=== PATIENT | female | born 1955 | race Caucasian/White ===

== ENCOUNTER 2019-04-15 14:21 | Inpatient (IN) | payer BC, SELFPAY ==
[2019-04-15] VITALS (7 sets, daily range): BP systolic 146–175; BP diastolic 78–94; PULSE 84–115; RESP 18–25; TEMP 36.4–38.7; O2SAT 97–99; BMI 35.0
--- NOTE | ~2019-04-15 | CT_ITS ---
EXAMINATION: CT abdomen pelvis w con DATE: 04/15/2019 15:49 INDICATION: Left lower quadrant abdominal pain, fever TECHNIQUE: Computed tomography (CT) of the abdomen and pelvis was performed with 100 cc Omnipaque 350 intravenous contrast. Automated exposure control and iterative reconstruction technique were employe d. Exam dose: 979.61 mGy-cm total exam DLP. COMPARISON: 07/23/2003 CT abdomen FINDINGS: The lung bases are clear. Normal heart size. Coronary artery calcification. No pericardial or pleural effusion. A stable hypoenhancing approximately 14 mm lower right hepatic lobe lesion is noted, stable since 07/08, consistent with benign process no other hepatic space-occupying mass lesion is evident. The g allbladder appears normal. No bile duct or pancreatic duct dilatation. Normal splenic size. There is a pancreatic soft tissue stranding along the body and particularly tail the pancreas, and so me thickening of the left anterior pararenal fascia, suggesting uncomplicated acute pancreatitis. No pancreatic calcification. No pancreatic mass lesion is evident. The adrenal glands are unremarkable. No renal mass lesion or urinary tract calculus or hydroureteronephrosis. The urinary bladder is unrem arkable. The uterus and adnexal areas are unremarkable. There is atherosclerotic calcification of the abdominal aorta but no aneurysm. No intraperitoneal or retroperitoneal or pelvic mass lesion or adenopathy or ascites is detected. Diverticulosis of the sigmoid colon; no CT evidence of diverticulitis. No bowel obstruction or intrap eritoneal free air. Normal appendix. Small fat-containing umbilical hernia. Left hip replacement. There is degenerative disc disease throughout the lumbar and lumbosacral area. No suspicious osteolyt ic or osteoblastic lesions are noted. IMPRESSION: Acute uncomplicated pancreatitis Stable 14 mm lower right hepatic lobe lesion, unchanged since 07/23/2003, consistent with benign proce ss Diverticulosis of the sigmoid colon; no CT evidence of diverticulitis Reviewed, dictated and finalized at [facility]. Reviewed, dictated and finalized at [facility]. ERY CLERK STOCKING IMPRESSION: Acute uncomplicated pancreatitis Stable 14 mm lower right hepatic lobe lesion, unchanged since 07/23/2003, consis tent with benign process Diverticulosis of the sigmoid colon; no CT evidence of diverticulitis
[2019-04-15 14:44] LABS: Basophils Absolute Auto 0.1 K/mm3 (0.0-0.1); Basophils Percent Auto 0.3 % (0.2-1.2); Eosinophils Percent Auto 0.2 % (0-4.4); Hematocrit 43.4 % (37.0-47.0); Hemoglobin 14.6 g/dL (12.0-15.0); Immature Granulocyte Absolute 0.04 K/mm3 (0.00-0.031); Immature Granulocyte Percent A 0.3 % (0-0.5); Lymphocytes Absolute Auto 1.59 K/mm3 (0.9-3.2); Lymphocytes Percent Auto 10.8 % (18.3-44.2); Mean Corpuscular HGB Conc 33.6 g/dl (32-36); Mean Corpuscular Hemoglobin 29.6 pg (26-34); Mean Platelet Volume 10.6 fl (7.4-10.4); Monocytes Absolute Auto 1.3 K/mm3 (0.1-0.6); Monocytes Percent Auto 8.6 % (2.6-8.5); Neutrophils Absolute Auto 11.8 K/mm3 (1.3-6.7); Neutrophils Percent Auto 79.8 % (45.5-73.1); Platelet Count Result 275 k/mm3 (150-375); Red Blood Count 4.93 M/mm3 (4.2-5.4); Red Cell Distribution Width 12.8 % (11.5-14.5); White Blood Count 14.8 K/mm3 (4.5-10.0)
[2019-04-15 14:56] LABS: Alanine Aminotransferase 15 U/L (4-35); Albumin Level 4.5 g/dL (3.5-5.1); Alkaline Phosphatase 85 U/L (38-126); Aspartate Amino Transferase 20 U/L (14-36); Bilirubin,Total 0.6 mg/dL (0.2-1.3); Blood Urea Nitrogen 13 mg/dL (7-17); Calcium 9.6 mg/dL (8.4-10.2); Carbon Dioxide 23 mmol/L (22-30); Chloride 100 mmol/L (98-107); Estimated CRCL calculation 50 ml/min; Estimated Glomerular Filt Rate 56; Glucose 110 mg/dL (65-105); Lipase 78 U/L (23-300); Potassium 4.1 mmol/L (3.4-5.0); Sodium 138 mmol/L (137-145)
[2019-04-15 15:00] LABS: Add Urine Microscopic? YES; Appearance Urine Clear (Clear); Bacteria Urine Trace /hpf; Bilirubin Urine Negative (Negative); Blood Urine 1+ (Negative); Color Urine Yellow (Yellow); Glucose Urine UA Negative (Negative); Ketones Urine Trace mg/dL (Negative); Leukocyte Esterase Ur 2+ LEU/UL (Negative); Mucus Urine Few /lpf; Nitrate Urine Negative (Negative); Protein Urine Negative (Negative); Specific Grav Ur 1.017 (1.001-1.035); Squamous Epithelial Cell Urine Occasional /hpf (Few); Urobilinogen Urine Negative mg/dL (<2.0); WBC Urine 16-20 /hpf
--- NOTE | 2019-04-15 15:14 | ED.ABDPAIN ---
HPI - Abdominal Pain General Chief Complaint: Abdominal Pain Stated Complaint: abd pain Time Seen by Provider: 04/15/19 15:06 Source: patient Mode of arrival: ambulatory Limitations: no limitations History of Present Illness HPI narrative: Pt is a 63 y/o female who presents to the ED with c/o sharp, LLQ ABD pain that started at 5AM this morning. Pt states that she tried to soak in a hot bath and it temporarily alleviated her pain. She notes that she had similar pain a week ago but not as severe. Her pain then last about 24-38 hours. Pt denies any aggravating factors and she has not taken any medicine. She reports nausea and back pain, but denies vomiting, diarrhea, constipation, dysuria, frequency, fever, chills, or sweats. Pt has a H/o pancreatitis, but her pain today is not similar to her pancreatitis pain. MD elicited complaint: abdominal pain Onset (ago): hour(s) (10) Location: LLQ Quality: sharp Exacerbating factors: nothing Relieving factors: other (hot bath) Associated symptoms: nausea and other (back pain) Related Data Allergies Allergy/AdvReac Type Severity Reaction Status Date / Time No Known Allergies Allergy Mild Verified 05/14/03 07:25 Review of Systems Review of Systems: All systems reviewed & are unremarkable except as noted in HPI and below Constitutional: Constitutional: Denies chills, Denies fever(s) and Denies other (sweats) Gastrointestinal: Gastrointestinal: Reports abdominal pain, Denies constipation, Denies diarrhea, Reports nausea and Denies vomiting Genitourinary: Genitourinary: Denies nocturia and Denies dysuria Musculoskeletal: Musculoskeletal: Reports back pain PMFSH Past Medical History Medical History (Updated 04/15/19 @ 17:26 by Senia Armstrong MD) HTN (hypertension) Pancreatitis Peripheral neuropathy Surgical History Surgical History (Updated 04/15/19 @ 15:50 by Luis Amato) History of left hip replacement Hx of tonsillectomy Social History Social History (Updated 04/15/19 @ 15:51 by Luis Amato) Smoking status: Former smoker Alcohol intake: never Gender identity (if verbalized by the patient): Female Exam Const: General: cooperative, no acute distress and alert Nutritional Appearance: well nourished Orientation/consciousness: patient oriented x3 Limitations: no limitations HENMT: Mouth: Yes lip normal and Yes moist mucous membranes Resp: Effort & Inspection: normal respiratory effort Auscultation: clear to auscultation bilaterally Cardio: Rate: tachycardic (borderline) Rhythm: regular rhythm GI: GI Palp: Yes Soft to palpation, Yes Tenderness to palpation present (GI) (LLQ), No Guarding due to palpation present (GI) and No Rebound tenderness present Auscultation: normal bowel sounds Back/Spine/Pelvis: Back: no CVA tenderness Skin: General skin exam: normal color Neuro: General: patient oriented x3 Cognition (Neuro): normal cognition Speech: normal speech Extrem: General: normal to inspection, full ROM and no clubbing, cyanosis or edema Psych: Mental Status: mental status grossly normal Affect: normal affect Attitude: cooperative Course Course Emergency Course: Patient presents with left lateral abdominal/flank pain, fever, and nausea. Patient with findings consistent with urinary tract infection on urinalysis. Patient with Sirs criteria qualifying for sepsis. No evidence of septic shock or organ dysfunction. CT scan does not show any evidence of urinary obstruction or diverticular disease. She does have evidence of pancreatitis on CT, though lipase is not elevated and her pain is not located in the epigastric area. Will keep patient n.p.o. and on IV fluids given pancreatitis was noted on CT scan, but suspect patient's symptomatology is likely due to UTI. Consultations Consultation #1: Discussed case with TERRELL Craft for the hospitalist. Accepted admission. Date: 04/15/19 Time: 16:45 Vital Signs Vital signs: Vital Signs T
[2019-04-15] MEDS: LACTATED RINGERS 1,000 ML 999 ML IV CONT (15:30)
[2019-04-15] MEDS: ONDANSETRON INJ 4 MG/2 ML VIAL IV PUSH (15:31)
[2019-04-15 15:52] LABS: Lactic Acid Reflex 0.9 mmol/L (0.7-2.1)
--- NOTE | 2019-04-15 16:46 | PC.NURSE ---
Pt ambulated to the bathroom, steady gait.
--- NOTE | 2019-04-15 17:00 | PM.IMHP ---
H&P: HPI History of Present Illness Chief complaint: Abdominal pain. Narrative: Ree Harris is a 63 year old female With history of pancreatitis, peptic ulcers, and hypertension who presented to the emergency department earlier this afternoon for evaluation of abdominal pain.She woke at 0500 hrs. to use the restroom, and notes passing a small but otherwise unremarkable stool. Shortly thereafter, she developed a sudden onset of God awful sharp left upper quadrant pain radiating somewhat through to the backassociated with severe nausea. She lay in a hot tub, which seemed to help for only a short period of time. She gives no significant aggravating factors. Her pain is similar to when she has had pancreatitis previously. She denies fever, chills, or sweats but was noted to have a temperature of 101.6 degrees on arrival to the emergency department. She denies diarrhea and constipation. No vomiting. She has not had issues with GERD or indigestion. She denies alcohol use. She has not had any recent change in medication. No dysuria, hematuria, urgency, or hesitancy. Review of Systems Review of Systems: Narrative: 12 systems were reviewed with pertinent positives and negatives as per HPI. She denies headache and neck ache. No cold or flu symptoms. No chest pain or shortness of breath. Except as documented, all other systems were reviewed and are negative. [facility] Past Medical History Medical History (Updated 04/15/19 @ 18:37 by Yasmin Maynard PA-C) Abnormal endoscopy of upper gastrointestinal tract EGD [place] [address] Macdonald showed duodenitis, duodenal erosions, and peptic ulcer disease. Chronic back pain Hypertension Osteoarthritis Pancreatitis Peripheral neuropathy Surgical History Surgical History (Updated 04/15/19 @ 18:34 by Yasmin Maynard PA-C) History of left hip replacement Status post tonsillectomy Family History Family History (Updated 04/15/19 @ 18:35 by Yasmin Maynard PA-C) Mother Renal cell carcinoma Social History Social History (Updated 04/15/19 @ 18:35 by Yasmin Maynard PA-C) Social History: The patient is and lives with her in [place]. She designates her , Kermit, as her surrogate decision-maker and she wishes to be a full code. She smoked 1 pack of cigarettes per day for 20+ years and quit in 2003. No alcohol or drug abuse. 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 Spiritual care concerns: No Agree to blood products: Yes Meds Home Medications and Allergies Allergies Allergy/AdvReac Type Severity Reaction Status Date / Time No Known Allergies Allergy Mild Verified 05/14/03 07:25 Vital Signs Vital Signs - 24 hr 04/15/19 14:25 04/15/19 15:14 04/15/19 15:33 Temperature 101.6 F H Pulse Rate 115 H 106 H 98 Respiratory Rate 24 H 18 25 H Blood Pressure 146/78 H 158/94 H 148/85 H Pulse Oximetry 99 98 98 04/15/19 16:00 04/15/19 16:53 04/15/19 18:22 Temperature 99.1 F 99.1 F 97.6 F Pulse Rate 85 87 Respiratory Rate 19 20 Blood Pressure 157/82 H 168/85 H Pulse Oximetry 98 97 Exam Narrative: Exam Narrative: General: Well-developed, well-nourished female supine in bed in moderate pain. HEENT: Normocephalic, atraumatic. PERRL, EOMI. Sclerae anicteric. Oral mucosa tacky. Oropharynx clear. Neck: Supple. Respiratory: Lungs are clear to auscultation bilaterally. Cardiovascular: Regular rate and rhythm with S1-S2. Gastrointestinal: Abdomen is soft and nondistended with positive bowel sounds. She is tender to palpation in the left upper quadrant. No voluntary guarding or rebound tenderness. Skin: Warm and dry. No rash or lesions on limited exam. Extremities: No cyanosis, clubbing, or edema. Radial and pedal pulses intact. Neurological: Alert. Cranial nerves 2-12 are grossly intact. No gross focal deficits to casual conversation. Psychiatric: Pleasant and cooperative with normal mood and affect. Judgment and insight
--- NOTE | 2019-04-15 18:15 | ADMGEN ---
This patient, Ree Harris, was admitted to 2 Medical Room 247-. Patient/family oriented to hospital policies and general routines including ID bracelet, bed and alarms, visiting hours, pain management, procedures, bathroom and other care routines, personal items, smoking policy, room service/diet, and visiting hours. Valuables list has been completed. Information on how to activate the Rapid Response Team has been discussed. Patient/Family are encouraged to report perceived risks to care and to ask questions if they do not understand what they are told or what they should do.
[2019-04-15] MEDS: MORPHINE SULFATE 2 MG/ML INJ IV PUSH ×2 (18:24→23:26)
[2019-04-15] MEDS: LACTATED RINGERS 1,000 ML 150 ML IV CONT (18:34)
--- NOTE | 2019-04-15 19:19 | PC.NURSE ---
On 04/15/19, the student, Maral Morelos, provided care and completed [facility] documentation on this patient. I have reviewed the student's documentation and agree with the findings.
[2019-04-15] MEDS: GABAPENTIN 300 MG CAPSULE PO (20:40)
[2019-04-15] MEDS: BACLOFEN 10 MG TABLET PO (20:42)
[2019-04-16] MEDS: LACTATED RINGERS 1,000 ML 150 ML IV CONT ×2 (01:58→09:01)
[2019-04-16] MEDS: MORPHINE SULFATE 2 MG/ML INJ IV PUSH ×2 (04:42→14:20)
[2019-04-16 05:37] LABS: Basophils Absolute Auto 0.1 K/mm3 (0.0-0.1); Basophils Percent Auto 0.4 % (0.2-1.2); Eosinophils Absolute Auto 0.1 K/mm3 (0-0.3); Eosinophils Percent Auto 1.1 % (0-4.4); Hematocrit 38.2 % (37.0-47.0); Hemoglobin 12.4 g/dL (12.0-15.0); Immature Granulocyte Absolute 0.05 K/mm3 (0.00-0.031); Immature Granulocyte Percent A 0.4 % (0-0.5); Lymphocytes Absolute Auto 1.71 K/mm3 (0.9-3.2); Lymphocytes Percent Auto 14.9 % (18.3-44.2); Mean Corpuscular HGB Conc 32.5 g/dl (32-36); Mean Corpuscular Hemoglobin 29.1 pg (26-34); Mean Corpuscular Volume 89.7 fl (80-100); Monocytes Absolute Auto 1.2 K/mm3 (0.1-0.6); Monocytes Percent Auto 10.3 % (2.6-8.5); Neutrophils Absolute Auto 8.3 K/mm3 (1.3-6.7); Neutrophils Percent Auto 72.9 % (45.5-73.1); Platelet Count Result 212 k/mm3 (150-375); Red Blood Count 4.26 M/mm3 (4.2-5.4); White Blood Count 11.5 K/mm3 (4.5-10.0)
[2019-04-16 05:47] LABS: Alanine Aminotransferase 12 U/L (4-35); Albumin Level 3.5 g/dL (3.5-5.1); Alkaline Phosphatase 63 U/L (38-126); Aspartate Amino Transferase 16 U/L (14-36); Bilirubin,Total 0.5 mg/dL (0.2-1.3); Blood Urea Nitrogen 11 mg/dL (7-17); Calcium 8.6 mg/dL (8.4-10.2); Carbon Dioxide 23 mmol/L (22-30); Chloride 102 mmol/L (98-107); Estimated CRCL calculation 63 ml/min; Estimated Glomerular Filt Rate > 60; Glucose 96 mg/dL (65-105); Lipase 28 U/L (23-300); Potassium 4.1 mmol/L (3.4-5.0); Sodium 137 mmol/L (137-145)
[2019-04-16 05:52] VITALS: BP 162/82; PULSE 81; RESP 22; TEMP 37.2; O2SAT 99
[2019-04-16] MEDS: lisinopriL 20 MG TABLET 40 MG PO (09:02)
[2019-04-16] MEDS: GABAPENTIN 300 MG CAPSULE PO ×2 (09:02→20:37)
[2019-04-16] MEDS: BACLOFEN 10 MG TABLET PO ×2 (09:02→20:37)
--- NOTE | 2019-04-16 09:48 | PM.IMPN ---
Progress Note: A&P Assessment and Plan (1) SIRS (systemic inflammatory response syndrome): Code(s): R65.10 - Systemic inflammatory response syndrome (SIRS) of non-infectious origin without acute organ dysfunction Status: Acute Assessment and Plan: SIRS criteria met on admission with fever, tachycardia, and leukocytosis. Presumably due to underlying pancreatitis. The patient has remained afebrile upon admission, leukocytosis is improving, blood pressure was slightly elevated this morning at 162/82, non tachycardic, increased respirations this morning at 22, and normal oxygenation on room air. Urine is positive for leukocyte esterase,White blood cells, and trace bacteria although she has no symptoms of UTI. Lactic acid levels within normal limits. Blood cultures have been obtained to rule out bacteremia. Continue monitoring patient's vital signs and urine culture results. (2) Pancreatitis: Qualifiers: Acute pancreatitis complication: no infection or necrosis Chronicity: acute Pancreatitis type: unspecified pancreatitis type Qualified Code(s): K85.90 - Acute pancreatitis without necrosis or infection, unspecified Code(s): K85.90 - Acute pancreatitis without necrosis or infection, unspecified Status: Acute Assessment and Plan: Precipitating etiology is not entirely clear, but presumably idiopathic as she has had 2 previous episodes of pancreatitis without obvious cause. She is feeling slightly better this morning and would like to try clear liquid diet. Will see how she tolerates her clear liquid diet and slowly advanced as tolerated over the next few days. Continue with IV fluids at this time and analgesics as needed. Patient lipase was normal at 78 she arrived and is still normal at 28 this morning. Continue monitoring patient's symptoms for patent panel and lipase. (3) Pyuria: Code(s): R82.81 - Pyuria Status: Acute Assessment and Plan: She does not have any signs or symptoms of urinary tract infection. She was started on ceftriaxone empirically in the emergency department. We will follow-up urine culture. Continue monitoring patient's symptoms. Continue IV antibiotics until urine culture is back. (4) Hypertension: Code(s): I10 - Essential (primary) hypertension Status: Acute Assessment and Plan: Blood pressures were reviewed and they are a bit elevated in the 160-170 systolic upon arrival. Most likely secondary to pain This morning they are still elevated 162/82. She is still having pain rated 5/10. We will continue monitoring her blood pressure. I assume these are elevated in the setting of pain. Time Spent With Patient Time with patient: 25 - 35 minutes Subjective Date/time seen: 04/16/19 09:48 Interval history: Date of service 04/16/2019: The patient reports she still has intermittent abdominal pain which originates in the epigastric area and then radiates to her left middle quadrant. She states her nausea is much improved today and she has not vomited all since arrival. She is thirsty at this time and would like to try a clear liquid diet. She denies any fever, chills, chest pain, shortness of breath, lightheadedness, dizziness, diarrhea, constipation, leg swelling, calf pain, or any other symptoms at this time. Review of Systems Review of Systems: All systems reviewed & are unremarkable except as noted in HPI and below Exam Narrative: Exam Narrative: General: 63-year-old woman laying flat in bed with the head elevated at 30?. Appears comfortable at rest but slightly uncomfortable when she is moving around in the bed. In no acute distress. Skin: No jaundice or cyanosis. Good skin turgor. Neck: Full range of motion. Supple. Respiratory:
[2019-04-16 14:00] VITALS: BP 116/69; PULSE 78; RESP 17; TEMP 36.7; O2SAT 97
[2019-04-16] MEDS: LACTATED RINGERS 1,000 ML 85 ML IV CONT (17:28)
[2019-04-16 21:22] VITALS: BP 138/65; PULSE 77; RESP 16; TEMP 37.9; O2SAT 9
[2019-04-17] MEDS: LACTATED RINGERS 1,000 ML 85 ML IV CONT (05:24)
[2019-04-17 06:04] VITALS: BP 152/64; PULSE 86; RESP 18; TEMP 37.4; O2SAT 97
[2019-04-17 06:47] LABS: Hematocrit 37.6 % (37.0-47.0); Hemoglobin 12.1 g/dL (12.0-15.0); Mean Corpuscular HGB Conc 32.2 g/dl (32-36); Mean Corpuscular Hemoglobin 29.2 pg (26-34); Mean Corpuscular Volume 90.6 fl (80-100); Mean Platelet Volume 11.2 fl (7.4-10.4); Platelet Count Result 222 k/mm3 (150-375); Red Blood Count 4.15 M/mm3 (4.2-5.4); Red Cell Distribution Width 13.1 % (11.5-14.5); White Blood Count 8.6 K/mm3 (4.5-10.0)
[2019-04-17 07:09] LABS: Alanine Aminotransferase 11 U/L (4-35); Albumin Level 3.4 g/dL (3.5-5.1); Alkaline Phosphatase 67 U/L (38-126); Aspartate Amino Transferase 18 U/L (14-36); Bilirubin,Total 0.4 mg/dL (0.2-1.3); Blood Urea Nitrogen 9 mg/dL (7-17); Calcium 8.9 mg/dL (8.4-10.2); Carbon Dioxide 26 mmol/L (22-30); Chloride 102 mmol/L (98-107); Estimated CRCL calculation 63 ml/min; Estimated Glomerular Filt Rate > 60; Glucose 86 mg/dL (65-105); Lipase 25 U/L (23-300); Sodium 138 mmol/L (137-145)
[2019-04-17] MEDS: lisinopriL 20 MG TABLET 40 MG PO (09:33)
[2019-04-17] MEDS: BACLOFEN 10 MG TABLET PO (09:34)
[2019-04-17] MEDS: GABAPENTIN 300 MG CAPSULE PO (09:34)
[2019-04-17 14:00] VITALS: BP 142/61; PULSE 82; RESP 16; TEMP 37.1; O2SAT 96
--- NOTE | 2019-04-17 16:27 | PM.DS ---
DS: Diagnosis Admitting Diagnosis Admitting Diagnosis: Systemic inflammatory response syndrome (SIRS) of non-infectious origin without acute organ dysfunction Discharge Diagnosis (1) SIRS (systemic inflammatory response syndrome): Code(s): R65.10 - Systemic inflammatory response syndrome (SIRS) of non-infectious origin without acute organ dysfunction Status: Acute Assessment and Plan: SIRS criteria met on admission with fever, tachycardia, and leukocytosis. Presumably due to underlying pancreatitis. The patient has remained afebrile since admission, leukocytosis resolved, blood pressure was slightly elevated this morning at 142/61, non tachycardic, normal respirations this morning, and normal oxygenation on room air. Urine is positive for leukocyte esterase,White blood cells, and trace bacteria although she has no symptoms of UTI. Urine culture was negative for any infection. Lactic acid levels within normal limits. Blood cultures have been obtained to rule out bacteremia and are currently showing no growth. She is improved and feeling much better at this time and she is to be discharged home. (2) Pancreatitis: Qualifiers: Acute pancreatitis complication: no infection or necrosis Chronicity: acute Pancreatitis type: unspecified pancreatitis type Qualified Code(s): K85.90 - Acute pancreatitis without necrosis or infection, unspecified Code(s): K85.90 - Acute pancreatitis without necrosis or infection, unspecified Status: Acute Assessment and Plan: Precipitating etiology is not entirely clear, but presumably idiopathic as she has had 2 previous episodes of pancreatitis without obvious cause. She is feeling much better today and has tolerated a low-fat diet. She is ready and stable to be discharged home. Lipase and LFTs remain normal. Have her follow-up with her PCP within 1 week. (3) Pyuria: Code(s): R82.81 - Pyuria Status: Acute Assessment and Plan: She does not have any signs or symptoms of urinary tract infection. She was started on ceftriaxone empirically in the emergency department. Urine culture was negative for infection. She remains asymptomatic. (4) Hypertension: Code(s): I10 - Essential (primary) hypertension Status: Acute Assessment and Plan: Blood pressures were reviewed and they are a bit elevated in the 160-170 systolic upon arrival. Most likely secondary to pain This morning they are still elevated 142/61. Will have her check her BP 2 times a day and follow-up with her primary care provider. DS: Summary Hospital Course Reason for hospitalization: 63-year-old female with a history of idiopathic pancreatitis, peptic ulcers, hypertension, who presents to the ER with a sudden onset of sharp left upper quadrant abdominal pain with which occurred right after waking up around 5:00 a.m.. Showed temperature of a 101.6?, blood pressure 146/78, heart rate 115, respiratory 24, oxygen saturation 99% on room air.Initial labs showed leukocytosis of 14,800 with a left shift, CMP normal, urinalysis showed 2+ leukocyte esterase, WBCs 16-20 in few mucus. CXR showed Acute uncomplicated pancreatitis, stable 14 mm lower right hepatic lobe lesion, unchanged since 07/23/2003, consistent with benign process. Diverticulosis of the sigmoid colon; no CT evidence of diverticulitis. The patient had urine and blood cultures sent secondary to SIRS. She was admitted into the hospital for acute pancreatitis with normal lipase and liver function tests. She was placed NPO initially and then slowly advanced on her diet as tolerated. Her leukocytosis slowly improved, her CMP remained normal and she was progressing well with just little abdominal discomfort at times. Her urine culture
--- NOTE | 2019-04-23 13:11 | PC.NURSE ---
Blood cx are negative.
== END 2019-04-17 17:18 | disposition home or self-care (01) | DRG 439 ==
LOC: ANHED 17:26 → ANH2MED 17:31
PROVIDERS: Physician Assistant; Admitting Provider Family Medicine; Emergency Provider Emergency Medicine; Visit Provider Internal Medicine
DX: K85.90 Acute pancreatitis without necrosis or infection, unspecified (principal); R65.10 Systemic inflammatory response syndrome (SIRS) of non-infectious origin without acute organ dysfunction; R82.81 Pyuria; I10 Essential (primary) hypertension; Z87.891 Personal history of nicotine dependence; Z87.11 Personal history of peptic ulcer disease
CPT/HCPCS: 36415; 74177; 80053; 81001; 83605; 83690; 85025; 85027; 87040; 87086; 87088; 96361; 96374; 96375; 99285; A9270; J0131; J0696; J2270; J2405; J7120; Q9967

== ENCOUNTER 2024-01-29 07:51 | Day surgery (SDC) | payer OTHER, SELFPAY ==
[2023-12-09 12:08] VITALS: BMI 31.1
[2023-12-17 14:42] VITALS: BMI 29.4
[2024-01-29 08:38] VITALS: BP 148/81; PULSE 78; RESP 16; TEMP 37.2; O2SAT 100
[2024-01-29] MEDS: LACTATED RINGERS 1,000 ML 150 ML IV CONT (08:41)
--- NOTE | 2024-01-29 09:03 | PM.HPGS ---
History of Present Illness History of Present Illness Consent: Risks, benefits, and alternatives have been discussed and questions answered. Patient agrees to proceed with procedure. Chief complaint: Neoplasm Screening Narrative: Ree Harris is a 68 year old female presents for screening colonoscopy. Patient's current weight appetite and bowel movements are normal. She denies abdominal pain. Patient has had no bleeding. Family history noncontributory. She does report prior colonoscopy elsewhere 8 years ago. Review of Systems Review of Systems: All systems reviewed & are unremarkable except as noted in HPI and below PMFSH Past Medical History Medical History (Updated 01/29/24 @ 09:04 by Ryland Macdonald MD) Abnormal endoscopy of upper gastrointestinal tract EGD in July [address] Macdonald showed duodenitis, duodenal erosions, and peptic ulcer disease. Chronic back pain Hypertension Osteoarthritis Pancreatitis Peripheral neuropathy Surgical History Surgical History (Updated 04/15/19 @ 18:34 by Yasmin Maynard PA-C) History of left hip replacement Status post tonsillectomy Family History Family History (Updated 04/15/19 @ 18:46 by Maral Jessica RN) Mother Renal cell carcinoma Sibling [place] (myocardial infarction) Father Cerebrovascular accident Social History Social History (Updated 04/15/19 @ 18:35 by Yasmin Maynard PA-C) Social History: The patient is and lives with her in [place]. She designates her , Kermit, as her surrogate decision-maker and she wishes to be a full code. She smoked 1 pack of cigarettes per day for 20+ years and quit in 2003. No alcohol or drug abuse. 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 Smoking status: Never smoker Alcohol intake: never Substance use: never Substance use type: does not use Living arrangements: alone Spiritual care concerns: No Agree to blood products: Yes Meds Home Medications and Allergies Home Medications Medication Instructions Recorded Confirmed Type lisinopril 40 mg tablet 40 mg PO DAILY 04/15/19 01/29/24 History atorvastatin 10 mg tablet 10 mg PO DAILY 12/16/23 01/29/24 History meloxicam 15 mg tablet 15 mg PO DIRECTED 12/16/23 01/29/24 History Allergies Allergy/AdvReac Type Severity Reaction Status Date / Time No Known Allergies Allergy Mild Verified 01/29/24 08:37 Vital Signs Vital Signs - 24 hr 01/29/24 08:38 Temperature 99 F Pulse Rate 78 Respiratory Rate 16 Blood Pressure 148/81 H Pulse Oximetry 100 Oxygen Delivery Room Air Exam Narrative: Physical exam reveals patient to be alert. Signs stable. HEENT exam is unremarkable. Patient is anicteric. Lungs are clear to auscultation and percussion heart is without murmur or extra sounds. Abdomen bowel sounds are present soft nontender with no organomegaly. Digital external rectal exam normal. Assessment and Plan Assessment and plan (1) Screen for colon cancer: Code(s): Z12.11 - Encounter for screening for malignant neoplasm of colon Status: Acute Assessment and Plan: Patient presents today for neoplasia screening colonoscopy. Further recommendations may be given after endoscopy.
--- NOTE | 2024-01-29 09:07 | WPDANESEPPF ---
Anes - Initial Pre Proc Eval Procedure: Operation Date: 01/29/24 10:00 Proposed Procedures p Screening Colonoscopy - Ryland Macdonald MD Date/Time: 01/29/24 09:07 Surgeon: Ryland Macdonald MD Pre Op Diagnosis: Neoplasm Screening Patient Data Age: 68 Gender: F Height: 1.57 m Weight: 75.8 kg Last Vital Signs Temp 37.2 C 01/29/24 08:38 Pulse 78 01/29/24 08:38 Resp 16 01/29/24 08:38 BP 148/81 H 01/29/24 08:38 Pulse Ox 100 01/29/24 08:38 O2 Del Method Room Air 01/29/24 08:38 Allergies Allergy/AdvReac Type Severity Reaction Status Date / Time No Known Allergies Allergy Mild Verified 01/29/24 08:37 Home Medications Medication Instructions Recorded Confirmed Type lisinopril 40 mg tablet 40 mg PO DAILY 04/15/19 01/29/24 History atorvastatin 10 mg tablet 10 mg PO DAILY 12/16/23 01/29/24 History meloxicam 15 mg tablet 15 mg PO DIRECTED 12/16/23 01/29/24 History Patient hx anesthesia problems: none Family hx anesthesia problems: none Results Review: All pre-operative results and documents have been reviewed as part of the pre-operative evaluation. [facility] Past Medical History Medical History Abnormal endoscopy of upper gastrointestinal tract EGD in July [address] Macdonald showed duodenitis, duodenal erosions, and peptic ulcer disease. Chronic back pain Hypertension Osteoarthritis Pancreatitis Peripheral neuropathy Surgical History Surgical History History of left hip replacement Status post tonsillectomy Family History Family History Mother Renal cell carcinoma Sibling [place] (myocardial infarction) Father Cerebrovascular accident Social History Social History Social History: The patient is and lives with her in [place]. She designates her , Kermit, as her surrogate decision-maker and she wishes to be a full code. She smoked 1 pack of cigarettes per day for 20+ years and quit in 2003. No alcohol or drug abuse. 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 Smoking status: Never smoker Alcohol intake: never Substance use: never Substance use type: does not use Living arrangements: alone Spiritual care concerns: No Agree to blood products: Yes Anes - Eval Final PreProcedure Day of Procedure 01/29/24 09:07 Patient weight: obese Heart: regular rate and rhythm Lungs: clear to auscultation Airway: Mallampati scale class II Neurological: alert and oriented Last oral intake: >/= 8 hours ASA classification: III Emergent: no Anesthetic plan: proceed Anesthesia type and monitoring: general GIVS and standard monitoring Results Review: All pre-operative results and documents have been reviewed as part of the pre-operative evaluation. Informed Consent: The patient's anesthetic plan and its attendant risks and benefits were discussed with the patient/family/POA. Questions were solicited and answers provided to the satisfaction of the patient/family/POA.
[2024-01-29 09:59] VITALS: BP 106/61; PULSE 84; RESP 20; O2SAT 96
[2024-01-29 10:09] VITALS: BP 129/66; PULSE 79; RESP 18; O2SAT 100
[2024-01-29 10:19] VITALS: BP 138/87; PULSE 73; RESP 14; O2SAT 100
--- NOTE | 2024-01-29 10:29 | WPDANESPN ---
Anes - Prog Note Post-Op Date/Time: 01/29/24 10:29 Cardiovascular status: normal Respiratory status: normal Airway patency: baseline Mental status: baseline Post-Op hydration status: normal Vital Signs: Last Vital Signs Temp 37.2 C 01/29/24 08:38 Pulse 73 01/29/24 10:19 Resp 14 01/29/24 10:19 BP 138/87 01/29/24 10:19 Pulse Ox 100 01/29/24 10:19 O2 Del Method Room Air 01/29/24 10:19 Pain Score (VAS): 0/10 I/O: Intake & Output 01/28/24 01/29/24 01/29/24 23:59 07:59 15:59 Intake Total 800 Balance 800 Patient Feedback: Patient satisfied with anesthetic care.
== END 2024-01-29 10:30 | disposition home or self-care (01) ==
PROVIDERS: PCP Internal Medicine; Visit Provider Internal Medicine Gastroenterology
PROC: 0DJD8ZZ Inspection of Lower Intestinal Tract, Via Natural or Artificial Opening Endoscopic (ICD-10-PCS; CPT 45378; principal; 2024-01-29 10:00)
DX: Z12.11 Encounter for screening for malignant neoplasm of colon (principal); K64.4 Residual hemorrhoidal skin tags; K64.8 Other hemorrhoids
CPT/HCPCS: 45378

== ENCOUNTER 2024-04-05 14:53 | Outpatient (CLI) | payer MEDICARE, SELFPAY ==
--- NOTE | ~2024-04-05 | MM_ITS ---
EXAMINATION: MM screening lily BI w jenny HISTORY: Screening TECHNIQUE: Craniocaudal and mediolateral oblique 3-D tomosynthesis images were obtained and synthetic 2-D images were generated. CAD analysis was submitted and interpreted. COMPARISON: No prior mammogram is available for comparison at this institution. BREAST PARENCHYMAL COMPOSITION: Not Dense: The breasts are almost entirely fatty. FINDINGS: There is no evidence of suspicious mass, calcification, or architectural distortion to sugg est malignancy in either breast. There has been no suspicious interval change. IMPRESSION: 1. No mammographic evidence of malignancy. 2. Recommend routine screening mammography in one year. BI-RADS Category 1: Negative Reviewed, dictated and finalized at location A. Y L[facility]EL
--- OUTSIDE RECORDS SUMMARY | 2024-04-05 15:45 | XMS_ITS | Data Portability ---
Author Organization [place] [facility] [employer], Main Office Address [address] [place] [address] Assessment Encounter Date Assessment Date Assessment LastModified by Organization Details LastModified Time 05/22/2022 05/22/2022 Blood work dyslipidemia atorvastatin chronic leg pain gabapentin hypertension lisinopril osteoarthritis meloxicam as needed blood work ordered follow-up in 6 months [email or web address] Not available 05/22/2022 21:13:41 11/20/2022 11/20/2022 Continue current therapy six-month follow-up [email or web address] Not available 12/03/2022 10:42:29 03/26/2023 03/26/2023 I have recommended that she do yoga on a daily basis dyslipidemia diet and statin hypertension lisinopril follow-up 6 months [email or web address] Not available 04/05/2023 15:40:52 Plan of Treatment Reminders Order Date Submit Date Provider Last Modified By Organization Details Last Modified Time Details Appointments None recorded . Lab CMP, serum or plasma 023 05/23/[address] (Lab), [address] [place], [address], 3 17:28:48 lipid panel, serum 023 05/23/[address] (Lab), [address] [place], [address], 3 17:28:48 CMP, serum or plasma 024 03/26/[address] (Lab), [address] [place], [address], 4 21:11:47 lipid panel, serum 024 03/26/[address] (Lab), [address] [place], [address], 4 21:11:47 CBC w/ auto diff 024 03/26/[address] (Lab), [address] [place], [address], 4 21:11:47 Referral None recorded . Procedures None recorded . Surgeries None recorded . Imaging None recorded . Medication Orders None recorded . Patient TargetsNo targets recorded. Patient InstructionsNo instructions recorded. Reason for Referral None Reported. Results Created Date Observation Date Name Description Value Unit Range Abnormal Flag Note LastModifiedBy Organization Detail LastModifiedTime 05/24/19 22 05/23/2021 COMPR EHENS JOSÉ ANTONIO METAB OLIC PANEL sodium 136 mmol/ L 137-14 5 low Not Available [facility] (Lab) [address] [place], [address], 05/23/2021 14:07:13 05/24/19 22 05/23/2021 COMPR EHENS JOSÉ ANTONIO METAB OLIC PANEL potassium 4.4 mmol/ L 3.5-5. 1 Not Available [facility] (Lab) [address] [place], [address], 05/23/2021 14:07:13 05/24/19 22 05/23/2021 COMPR EHENS JOSÉ ANTONIO METAB OLIC PANEL chloride 104 mmol/ L 98-107 Not Available [facility] (Lab) [address] [place], [address], 05/23/2021 14:07:13 05/24/19 22 05/23/2021 COMPR EHENS JOSÉ ANTONIO METAB OLIC PANEL carbon dioxide 28 mmol/ L 22-30 Not Available [facility] (Lab) [address] [place], [address], 05/23/2021 14:07:13 05/24/19 22 05/23/2021 COMPR EHENS JOSÉ ANTONIO METAB OLIC PANEL agap 8.4 mmol/ L 14- low Not Available [facility] (Lab) [address] [place], [address], 05/23/2021 14:07:13 05/24/19 22 05/23/2021 COMPR EHENS JOSÉ ANTONIO METAB OLIC PANEL glucose 90 mg/dL 70-99 Not Available [facility] (Lab) [address] [place], [address], 05/23/2021 14:07:13 05/24/19 22 05/23/2021 COMPR EHENS JOSÉ ANTONIO METAB OLIC PANEL BUN 19 mg/dL 8-19 Not Available [facility] (Lab) [address] [place], [address], 05/23/2021 14:07:13 05/24/19 22 05/23/2021 COMPR EHENS JOSÉ ANTONIO METAB OLIC PANEL creatinine 0.89 mg/dL 0.66-1 .25 Not Available [facility] (Lab) [address] [place], [address], 05/23/2021 14:07:13 05/24/19 22 05/23/2021 COMPR EHENS JOSÉ ANTONIO METAB OLIC PANEL GFR >60 Refer ence Range : [place] ge GFR Healt hy Adult : >60 mL/mi n/1.7 3 m2 Chron ic Kidne y Disea se: 15-60 mL/mi n/1.7 3 m2 Kidne y Failu re: <15/m L/min /1.73 m2 www.n iddk. nih.g ov The MDRD study equat ion has not been valid ated in child patrice <18 years of age; pregn ant women ; the elder ly >85 years of age; or in some racia l or ethni c subgr oups, such as Hispa nics. Outsi de the valid ated trudi eters , estim ated GFR is less accur ate, requi ring clini marquis judgm ent on a case- by-ca se basis . Clini marquis inter preta tion for other races and ages must be made by the clini zohra. The MDRD study equat ion has not been valid ated for the evalu ation of serum creat inine relat ed to nutri cindy l statu s or medic ation usage . For perso ns <18 years of age, a pedia tric GFR calcu lator is avail able on the [facility] websi te: https ://ww w.kid charlie.o rg/pr ofess ional s/kdo qi/gf r_cal culat or Not Available [facility] (Lab) [address] [place], [address], 05/23/2021 14:07:13 05/24/19 22 05/23/2021 COMPR EHENS JOSÉ ANTONIO METAB OLIC PANEL alkaline phosphatase 86 U/L 38-126 Not Available [facility] (Lab) [address] [place], [address], 05/23/2021 14:07:13 05/24/19 22 05/23/2021 COMPR EHENS JOSÉ ANTONIO METAB OLIC PANEL alanine aminotransfe rase 17 U/L 0-35 Not Available [facility] (Lab) [address] [place], [address], 05/23/2021 14:07:13 05/24/19 22 05/23/2021 COMPR EHENS JOSÉ ANTONIO METAB OLIC PANEL aspartate aminotransfe rase 24 U/L 15-37 Not Available [facility] (Lab) [address] [place], [address], 05/23/2021 14:07:13 05/24/19 22 05/23/2021 COMPR EHENS JOSÉ ANTONIO METAB OLIC PANEL bilirubin, total 0.50 mg/dL 0.20-1 .30 Not Available [facility] (Lab) [address] [place], [address], 05/23/2021 14:07:13 05/24/19 22 05/23/2021 COMPR EHENS JOSÉ ANTONIO METAB OLIC PANEL calcium 9.6 mg/dL 8.4-10 .2 Not Available [facility] (Lab) [address] [place], [address], 05/23/2021 14:07:13 05/24/19 22 05/23/2021 COMPR EHENS JOSÉ ANTONIO METAB OLIC PANEL total protein 6.8 g/dL 6.3-8. 2 Not Available [facility] (Lab) [address] [place], [address], 05/23/2021 14:07:13 05/24/19 22 05/23/2021 COMPR EHENS JOSÉ ANTONIO METAB OLIC PANEL albumin 4.1 g/dL 3.0-4. 4 Not Available [facility] (Lab) [address] [place], [address], 05/23/2021 14:07:13 05/24/19 22 05/23/2021 COMPR EHENS JOSÉ ANTONIO METAB OLIC PANEL globulin 2.7 g/dL 2.6-4. 2 Not Available [facility] (Lab) [address] [place], [address], 05/23/2021 14:07:13 05/24/19 22 05/23/2021 COMPR EHENS JOSÉ ANTONIO METAB OLIC PANEL A/G ratio 1.5 ratio 1.0-2. 0 Not Available [facility] (Lab) [address] [place], [address], 05/23/2021 14:07:13 05/24/19 22 05/23/2021 LIPID PANEL cholesterol 176 mg/dL 140-19 9 NIH SILVESTRE NSUS RECOM MENDA TION FOR SAUD STERO L: ADULT CHILD LOW RISK: <200 <170 BORDE RLINE : <200- 239 ----- HIGH RISK: >240 >200 Not Available [facility] (Lab) [address] [place], [address], 05/23/2021 14:07:07 05/24/19 22 05/23/2021 LIPID PANEL triglyceride s 96 mg/dL 0-150 NIH SILVESTRE NSUS REPOR T RECOM MENDA TION FOR TRIGL YCERI CHEVY: ADULT CHILD LOW RISK: <150 ----- BODER LINE: 150-1 99 ----- HIGH RISK: >200 ----- Not Available [facility] (Lab) [address] [place], [address], 05/23/2021 14:07:07 05/24/19 22 05/23/2021 LIPID PANEL HDL cholesterol 106 mg/dL 40- Not Available [facility] (Lab) [address] [place], [address], 05/23/2021 14:07:07 05/24/19 22 05/23/2021 LIPID PANEL LDL cholesterol, calculated 51 mg/dL 0-130 NIH SILVESTRE NSUS REPOR T RECOM MENDA TIONS FOR LDL: ADULT CHILD LOW RISK <130 <110 (OPTI MAL LDL) <100 ----- BORDE RLINE : 130-1 59 ----- HIGH RISK: >160 >130 A TRIGL YCERI DE RESUL T >400 INVAL IDATE S THE CALCU LATIO N FOR LDL FRACT IONAT ION - THE LDL RESUL T WILL NOT BE REPOR PETER. Not Available [facility] (Lab) [address] [place], [address], 05/23/2021 14:07:07 05/24/19 22 05/23/2021 CBC/C OMPLE TE BLD COUNT W/DIF F white blood cells 6.1 x10'3 /uL 4.2-10 .8 Not Available [facility] (Lab) [address] [place], [address], 05/23/2021 13:11:47 05/24/19 22 05/23/2021 CBC/C OMPLE TE BLD COUNT W/DIF F red blood cells 4.76 x10'6 /uL 3.80-5 .20 Not Available [facility] (Lab) [address] [place], [address], 05/23/2021 13:11:47 05/24/19 22 05/23/2021 CBC/C OMPLE TE BLD COUNT W/DIF F hemoglobin 14.9 g/dL 12.0-1 5.6 Not Available [facility] (Lab) [address] [place], [address], 05/23/2021 13:11:47 05/24/19 22 05/23/2021 CBC/C OMPLE TE BLD COUNT W/DIF F hematocrit 42.9 % 35.7-4 5.7 Not Available [facility] (Lab) [address] [place], [address], 05/23/2021 13:11:47 05/24/19 22 05/23/2021 CBC/C OMPLE TE BLD COUNT W/DIF F mean red cell volume 90.1 fL 82.0-9 9.0 Not Available [facility] (Lab) [address] [place], [address], 05/23/2021 13:11:47 05/24/19 22 05/23/2021 CBC/C OMPLE TE BLD COUNT W/DIF F mean red cell hemoglobin 31.3 pg 27.0-3 3.0 Not Available [facility] (Lab) [address] [place], [address], 05/23/2021 13:11:47 05/24/19 22 05/23/2021 CBC/C OMPLE TE BLD COUNT W/DIF F mean RBC HGB concentratio n 34.7 g/dL 31.0-3 6.0 Not Available [facility] (Lab) [address] [place], [address], 05/23/2021 13:11:47 05/24/19 22 05/23/2021 CBC/C OMPLE TE BLD COUNT W/DIF F red cell distribution width 13.1 % 11.8-1 5.5 Not Available [facility] (Lab) [address] [place], [address], 05/23/2021 13:11:47 05/24/19 22 05/23/2021 CBC/C OMPLE TE BLD COUNT W/DIF F platelets 216 x10'3 /uL 150-40 0 Not Available [facility] (Lab) [address] [place], [address], 05/23/2021 13:11:47 05/24/19 22 05/23/2021 CBC/C OMPLE TE BLD COUNT W/DIF F mean platelet volume 11.3 fL 9.0-12 .4 Not Available [facility] (Lab) [address] [place], [address], 05/23/2021 13:11:47 05/24/19 22 05/23/2021 CBC/C OMPLE TE BLD COUNT W/DIF F neutrophils 53.8 % 39.0-7 2.0 Not Available [facility] (Lab) [address] [place], [address], 05/23/2021 13:11:47 05/24/19 22 05/23/2021 CBC/C OMPLE TE BLD COUNT W/DIF F lymphocytes 33.9 % 16.0-4 7.0 Not Available [facility] (Lab) [address] [place], [address], 05/23/2021 13:11:47 05/24/19 22 05/23/2021 CBC/C OMPLE TE BLD COUNT W/DIF F monocytes 8.2 % 5.0-12 .0 Not Available [facility] (Lab) [address] [place], [address], 05/23/2021 13:11:47 05/24/19 22 05/23/2021 CBC/C OMPLE TE BLD COUNT W/DIF F eosinophils 3.1 % 1.0-7. 0 Not Available [facility] (Lab) [address] [place], [address], 05/23/2021 13:11:47 05/24/19 22 05/23/2021 CBC/C OMPLE TE BLD COUNT W/DIF F basophils 0.8 % 0.0-2. 0 Not Available [facility] (Lab) [address] [place], [address], 05/23/2021 13:11:47 05/24/19 22 05/23/2021 CBC/C OMPLE TE BLD COUNT W/DIF F immature granulocytes 0.2 % 0.00-0 .50 Not Available [facility] (Lab) [address] [place], [address], 05/23/2021 13:11:47 05/24/19 22 05/23/2021 CBC/C OMPLE TE BLD COUNT W/DIF F neutrophils, absolute count 3.30 x10'3 /uL 1.5-8. 0 Not Available [facility] (Lab) [address] [place], [address], 05/23/2021 13:11:47 05/24/19 22 05/23/2021 CBC/C OMPLE TE BLD COUNT W/DIF F lymphocytes, absolute count 2.08 x10'3 /uL 1.07-3 .43 Not Available [facility] (Lab) [address] [place], [address], 05/23/2021 13:11:47 05/24/19 22 05/23/2021 CBC/C OMPLE TE BLD COUNT W/DIF F monocytes, absolute count 0.50 x10'3 /uL 0.29-0 .99 Not Available [facility] (Lab) [address] [place], [address], 05/23/2021 13:11:47 05/24/19 22 05/23/2021 CBC/C OMPLE TE BLD COUNT W/DIF F eosinophils, absolute count 0.19 x10'3 /uL 0.02-0 .53 Not Available [facility] (Lab) [address] [place], [address], 05/23/2021 13:11:47 05/24/19 22 05/23/2021 CBC/C OMPLE TE BLD COUNT W/DIF F basophils, absolute count 0.05 x10'3 /uL 0.01-0 .08 Not Available [facility] (Lab) [address] [place], [address], 05/23/2021 13:11:47 05/24/19 22 05/23/2021 CBC/C OMPLE TE BLD COUNT W/DIF F immature granulocytes ,absolute 0.01 x10'3 /uL 0.00-0 .05 Not Available [facility] (Lab) [address] [place], [address], 05/23/2021 13:11:47 05/24/19 22 05/23/2021 CBC/C OMPLE TE BLD COUNT W/DIF F nucleated red blood cells 0.0 % -0 Not Available [facility] (Lab) [address] [place], [address], 05/23/2021 13:11:47 05/24/19 22 05/23/2021 CBC/C OMPLE TE BLD COUNT W/DIF F NRBC# 0.00 x10'3 /uL Not Available [facility] (Lab) [address] [place], [address], 05/23/2021 13:11:47 11/29/19 22 11/28/2021 LIPID PANEL cholesterol 184 mg/dL 140-19 9 NIH SILVESTRE NSUS RECOM MENDA TION FOR SAUD STERO L: ADULT CHILD LOW RISK: <200 <170 BORDE RLINE : <200- 239 ----- HIGH RISK: >240 >200 Not Available [facility] (Lab) [address] [place], [address], 11/28/2021 18:58:09 11/29/19 22 11/28/2021 LIPID PANEL triglyceride s 135 mg/dL 0-150 NIH SILVESTRE NSUS REPOR T RECOM MENDA TION FOR TRIGL YCERI CHEVY: ADULT CHILD LOW RISK: <150 ----- BODER LINE: 150-1 99 ----- HIGH RISK: >200 ----- Not Available [facility] (Lab) [address] [place], [address], 11/28/2021 18:58:09 11/29/19 22 11/28/2021 LIPID PANEL HDL cholesterol 118 mg/dL 40- Not Available [facility] (Lab) [address] [place], [address], 11/28/2021 18:58:09 11/29/19 22 11/28/2021 LIPID PANEL LDL cholesterol, calculated 39 mg/dL 0-130 NIH SILVESTRE NSUS REPOR T RECOM MENDA TIONS FOR LDL: ADULT CHILD LOW RISK <130 <110 (OPTI MAL LDL) <100 ----- BORDE RLINE : 130-1 59 ----- HIGH RISK: >160 >130 A TRIGL YCERI DE RESUL T >400 INVAL IDATE S THE CALCU LATIO N FOR LDL FRACT IONAT ION - THE LDL RESUL T WILL NOT BE REPOR PETER. Not Available [facility] (Lab) [address] [place], [address], 11/28/2021 18:58:09 11/29/19 22 11/28/2021 COMPR EHENS JOSÉ ANTONIO METAB OLIC PANEL sodium 138 mmol/ L 137-14 5 Not Available [facility] (Lab) [address] [place], [address], 11/28/2021 18:42:24 11/29/19 22 11/28/2021 COMPR EHENS JOSÉ ANTONIO METAB OLIC PANEL potassium 4.8 mmol/ L 3.5-5. 1 Not Available [facility] (Lab) [address] [place], [address], 11/28/2021 18:42:24 11/29/19 22 11/28/2021 COMPR EHENS JOSÉ ANTONIO METAB OLIC PANEL chloride 103 mmol/ L 98-107 Not Available [facility] (Lab) [address] [place], [address], 11/28/2021 18:42:24 11/29/19 22 11/28/2021 COMPR EHENS JOSÉ ANTONIO METAB OLIC PANEL carbon dioxide 28 mmol/ L 22-30 Not Available [facility] (Lab) [address] [place], [address], 11/28/2021 18:42:24 11/29/19 22 11/28/2021 COMPR EHENS JOSÉ ANTONIO METAB OLIC PANEL anion gap 11.8 mmol/ L 14-22 low Not Available [facility] (Lab) [address] [place], [address], 11/28/2021 18:42:24 11/29/19 22 11/28/2021 COMPR EHENS JOSÉ ANTONIO METAB OLIC PANEL glucose 77 mg/dL 70-99 Not Available [facility] (Lab) [address] [place], [address], 11/28/2021 18:42:24 11/29/19 22 11/28/2021 COMPR EHENS JOSÉ ANTONIO METAB OLIC PANEL BUN 20 mg/dL 8-19 high Not Available [facility] (Lab) [address] [place], [address], 11/28/2021 18:42:24 11/29/19 22 11/28/2021 COMPR EHENS JOSÉ ANTONIO METAB OLIC PANEL creatinine 1.02 mg/dL 0.66-1 .25 Not Available [facility] (Lab) [address] [place], [address], 11/28/2021 18:42:24 11/29/19 22 11/28/2021 COMPR EHENS JOSÉ ANTONIO METAB OLIC PANEL GFR 54 Refer ence Range : [place] GFR Healt hy Adult : >60 mL/mi n/1.7 3 m2 Chron ic Kidne y Disea se: 15-60 mL/mi n/1.7 3 m2 Kidne y Failu re: <15/m L/min /1.73 m2 www.n iddk. nih.g ov The MDRD study equat ion has not been valid ated in child patrice <18 years of age; pregn ant women ; the elder ly >85 years of age; or in some racia l or ethni c subgr oups, such as Hispa nics. Outsi de the valid ated trudi eters , estim ated GFR is less accur ate, requi ring clini marquis judgm ent on a case- by-ca se basis . Clini marquis inter preta tion for other races and ages must be made by the clini zohra. The MDRD study equat ion has not been valid ated for the evalu ation of serum creat inine relat ed to nutri cindy l statu s or medic ation usage . For perso ns <18 years of age, a pedia tric GFR calcu lator is avail able on the [facility] websi te: https ://sonya w.mike guerra.o claudia/pr ofess ional s/kdo qi/gf r_cal culat or Not Available [facility] (Lab) [address] [place], [address], 11/28/2021 18:42:24 11/29/19 22 11/28/2021 COMPR EHENS JOSÉ ANTONIO METAB OLIC PANEL alkaline phosphatase 78 U/L 38-126 Not Available [facility] (Lab) [address] [place], [address], 11/28/2021 18:42:24 11/29/19 22 11/28/2021 COMPR EHENS JOSÉ ANTONIO METAB OLIC PANEL alanine aminotransfe rase 19 U/L 0-35 Not Available [facility] (Lab) [address] [place], [address], 11/28/2021 18:42:24 11/29/19 22 11/28/2021 COMPR EHENS JOSÉ ANTONIO METAB OLIC PANEL aspartate aminotransfe rase 27 U/L 15-37 Not Available [facility] (Lab) [address] [place], [address], 11/28/2021 18:42:24 11/29/19 22 11/28/2021 COMPR EHENS JOSÉ ANTONIO METAB OLIC PANEL bilirubin, total 0.60 mg/dL 0.20-1 .30 Not Available [facility] (Lab) [address] [place], [address], 11/28/2021 18:42:24 11/29/19 22 11/28/2021 COMPR EHENS JOSÉ ANTONIO METAB OLIC PANEL calcium 9.8 mg/dL 8.4-10 .2 Not Available [facility] (Lab) [address] [place], [address], 11/28/2021 18:42:24 11/29/19 22 11/28/2021 COMPR EHENS JOSÉ ANTONIO METAB OLIC PANEL total protein 6.9 g/dL 6.3-8. 2 Not Available [facility] (Lab) [address] [place], [address], 11/28/2021 18:42:24 11/29/19 22 11/28/2021 COMPR EHENS JOSÉ ANTONIO METAB OLIC PANEL albumin 4.5 g/dL 3.0-4. 4 high Not Available [facility] (Lab) [address] [place], [address], 11/28/2021 18:42:24 11/29/19 22 11/28/2021 COMPR EHENS JOSÉ ANTONIO METAB OLIC PANEL globulin 2.4 g/dL 2.6-4. 2 low Not Available [facility] (Lab) [address] [place], [address], 11/28/2021 18:42:24 11/29/19 22 11/28/2021 COMPR EHENS JOSÉ ANTONIO METAB OLIC PANEL A/G ratio 1.9 ratio 1.0-2. 0 Not Available [facility] (Lab) [address] [place], [address], 11/28/2021 18:42:24 11/29/19 22 11/28/2021 APTT APTT 28.2 secon ds 22.2-3 1.5 Not Available [facility] (Lab) [address] [place], [address], 11/28/2021 18:07:56 11/29/19 22 11/28/2021 PROTI ME W/INR protime 10.5 secon ds 9.5-11 .5 Not Available [facility] (Lab) [address] [place], [address], 11/28/2021 18:07:55 11/29/19 22 11/28/2021 PROTI ME W/INR INR 1.0 INR INDIC ATION S 2.0 - 3.0 PROPH YLAXI S: VENOU S THROM BOSIS (HIGH RISK SURGE RY) AND SYSTE GIFTY EMBOL ISM (TISS UE HEART VALVE S, AMI VALVU LAR HEART DISEA SE AND ATRIA L FIBRI LLATI ON). TREAT MENT: VENOU S THROM BOSIS AND PULMO NARY EMBOL ISM BILEA FLET MECHA NICAL VALVE S IN AORTI C POSIT ION. 2.5 - 3.5 MECHA NICAL PROST HETIC HEART VALVE S (TILT ING DISK VALVE S AND BILEA FLET MECHA NICAL VALVE S IN KANE L POSIT ION). PREVE NTION OF RECUR RENT MYOCA RDIAL INFAR CTION . ANTIP HOSPH OLIPI D SYNDR OME. Not Available [facility] (Lab) [address] [place], [address], 11/28/2021 18:07:55 11/29/19 22 11/28/2021 CBC/C OMPLE TE BLD COUNT W/DIF F white blood cells 7.9 x10'3 /uL 4.2-10 .8 Not Available [facility] (Lab) [address] [place], [address], 11/28/2021 17:55:55 11/29/19 22 11/28/2021 CBC/C OMPLE TE BLD COUNT W/DIF F red blood cells 4.73 x10'6 /uL 3.80-5 .20 Not Available [facility] (Lab) [address] [place], [address], 11/28/2021 17:55:55 11/29/19 22 11/28/2021 CBC/C OMPLE TE BLD COUNT W/DIF F hemoglobin 14.1 g/dL 12.0-1 5.6 Not Available [facility] (Lab) [address] [place], [address], 11/28/2021 17:55:55 11/29/19 22 11/28/2021 CBC/C OMPLE TE BLD COUNT W/DIF F hematocrit 43.0 % 35.7-4 5.7 Not Available [facility] (Lab) [address] [place], [address], 11/28/2021 17:55:55 11/29/19 22 11/28/2021 CBC/C OMPLE TE BLD COUNT W/DIF F mean red cell volume 90.9 fL 82.0-9 9.0 Not Available [facility] (Lab) [address] [place], [address], 11/28/2021 17:55:55 11/29/19 22 11/28/2021 CBC/C OMPLE TE BLD COUNT W/DIF F mean red cell hemoglobin 29.8 pg 27.0-3 3.0 Not Available [facility] (Lab) [address] [place], [address], 11/28/2021 17:55:55 11/29/19 22 11/28/2021 CBC/C OMPLE TE BLD COUNT W/DIF F mean RBC HGB concentratio n 32.8 g/dL 31.0-3 6.0 Not Available [facility] (Lab) [address] [place], [address], 11/28/2021 17:55:55 11/29/19 22 11/28/2021 CBC/C OMPLE TE BLD COUNT W/DIF F red cell distribution width 13.1 % 11.8-1 5.5 Not Available [facility] (Lab) [address] [place], [address], 11/28/2021 17:55:55 11/29/19 22 11/28/2021 CBC/C OMPLE TE BLD COUNT W/DIF F platelets 218 x10'3 /uL 150-40 0 Not Available [facility] (Lab) [address] [place], [address], 11/28/2021 17:55:55 11/29/19 22 11/28/2021 CBC/C OMPLE TE BLD COUNT W/DIF F mean platelet volume 10.9 fL 9.0-12 .4 Not Available [facility] (Lab) [address] [place], [address], 11/28/2021 17:55:55 11/29/19 22 11/28/2021 CBC/C OMPLE TE BLD COUNT W/DIF F neutrophils 53.5 % 39.0-7 2.0 Not Available [facility] (Lab) [address] [place], [address], 11/28/2021 17:55:55 11/29/19 22 11/28/2021 CBC/C OMPLE TE BLD COUNT W/DIF F lymphocytes 33.3 % 16.0-4 7.0 Not Available [facility] (Lab) [address] [place], [address], 11/28/2021 17:55:55 11/29/19 22 11/28/2021 CBC/C OMPLE TE BLD COUNT W/DIF F monocytes 9.3 % 5.0-12 .0 Not Available [facility] (Lab) [address] [place], [address], 11/28/2021 17:55:55 11/29/19 22 11/28/2021 CBC/C OMPLE TE BLD COUNT W/DIF F eosinophils 3.1 % 1.0-7. 0 Not Available [facility] (Lab) [address] [place], [address], 11/28/2021 17:55:55 11/29/19 22 11/28/2021 CBC/C OMPLE TE BLD COUNT W/DIF F basophils 0.5 % 0.0-2. 0 Not Available [facility] (Lab) [address] [place], [address], 11/28/2021 17:55:55 11/29/19 22 11/28/2021 CBC/C OMPLE TE BLD COUNT W/DIF F immature granulocytes 0.3 % 0.00-0 .50 Not Available [facility] (Lab) [address] [place], [address], 11/28/2021 17:55:55 11/29/19 22 11/28/2021 CBC/C OMPLE TE BLD COUNT W/DIF F neutrophils, absolute count 4.21 x10'3 /uL 1.5-8. 0 Not Available [facility] (Lab) [address] [place], [address], 11/28/2021 17:55:55 11/29/19 22 11/28/2021 CBC/C OMPLE TE BLD COUNT W/DIF F lymphocytes, absolute count 2.62 x10'3 /uL 1.07-3 .43 Not Available [facility] (Lab) [address] [place], [address], 11/28/2021 17:55:55 11/29/19 22 11/28/2021 CBC/C OMPLE TE BLD COUNT W/DIF F monocytes, absolute count 0.73 x10'3 /uL 0.29-0 .99 Not Available [facility] (Lab) [address] [place], [address], 11/28/2021 17:55:55 11/29/19 22 11/28/2021 CBC/C OMPLE TE BLD COUNT W/DIF F eosinophils, absolute count 0.24 x10'3 /uL 0.02-0 .53 Not Available [facility] (Lab) [address] [place], [address], 11/28/2021 17:55:55 11/29/19 22 11/28/2021 CBC/C OMPLE TE BLD COUNT W/DIF F basophils, absolute count 0.04 x10'3 /uL 0.01-0 .08 Not Available [facility] (Lab) [address] [place], [address], 11/28/2021 17:55:55 11/29/19 22 11/28/2021 CBC/C OMPLE TE BLD COUNT W/DIF F immature granulocytes ,absolute 0.02 x10'3 /uL 0.00-0 .05 Not Available [facility] (Lab) [address] [place], [address], 11/28/2021 17:55:55 11/29/19 22 11/28/2021 CBC/C OMPLE TE BLD COUNT W/DIF F nucleated red blood cells 0.0 % -0 Not Available [facility] (Lab) [address] [place], [address], 11/28/2021 17:55:55 11/29/19 22 11/28/2021 CBC/C OMPLE TE BLD COUNT W/DIF F NRBC# 0.00 x10'3 /uL Not Available [facility] (Lab) [address] [facility], [address], 11/28/2021 17:55:55 05/23/19 23 05/22/2022 COMPR EHENS JOÉS ANTONIO METAB OLIC PANEL sodium 139 mmol/ L 137-14 5 Not Available [facility] (Lab) [address] [place], [address], 05/22/2022 16:48:12 05/23/19 23 05/22/2022 COMPR EHENS JOSÉ ANTONIO METAB OLIC PANEL potassium 4.2 mmol/ L 3.5-5. 1 Not Available [facility] (Lab) [address] [place], [address], 05/22/2022 16:48:12 05/23/19 23 05/22/2022 COMPR EHENS JOSÉ ANTONIO METAB OLIC PANEL chloride 103 mmol/ L 98-107 Not Available [facility] (Lab) [address] [place], [address], 05/22/2022 16:48:12 05/23/19 23 05/22/2022 COMPR EHENS JOSÉ ANTONIO METAB OLIC PANEL carbon dioxide 28 mmol/ L 22-30 Not Available [facility] (Lab) [address] [place], [address], 05/22/2022 16:48:12 05/23/19 23 05/22/2022 COMPR EHENS JOSÉ ANTONIO METAB OLIC PANEL anion gap 12.2 mmol/ L 14-22 low Not Available [facility] (Lab) [address] [place], [address], 05/22/2022 16:48:12 05/23/19 23 05/22/2022 COMPR EHENS JOSÉ ANTONIO METAB OLIC PANEL glucose 92 mg/dL 70-99 Not Available [facility] (Lab) [address] [place], [address], 05/22/2022 16:48:12 05/23/19 23 05/22/2022 COMPR EHENS JOSÉ ANTONIO METAB OLIC PANEL BUN 26 mg/dL 8-19 high Not Available [facility] (Lab) [address] [place], [address], 05/22/2022 16:48:12 05/23/19 23 05/22/2022 COMPR EHENS JOSÉ ANTONIO METAB OLIC PANEL creatinine 1.08 mg/dL 0.66-1 .25 Not Available [facility] (Lab) [address] [place], [address], 05/22/2022 16:48:12 05/23/19 23 05/22/2022 COMPR EHENS JOSÉ ANTONIO METAB OLIC PANEL GFR 51 Refer ence Range : [place] ge GFR Healt hy Adult : >60 mL/mi n/1.7 3 m2 Chron ic Kidne y Disea se: 15-60 mL/mi n/1.7 3 m2 Kidne y Failu re: <15/m L/min /1.73 m2 www.n iddk. nih.g ov The MDRD study equat ion has not been valid ated in child patrice <18 years of age; pregn ant women ; the elder ly >85 years of age; or in some racia l or ethni c subgr oups, such as [facility] nics. Outsi de the valid ated trudi eters , estim ated GFR is less accur ate, requi ring clini marquis judgm ent on a case- by-ca se basis . Clini marquis inter preta tion for other races and ages must be made by the clini zohra. The MDRD study equat ion has not been valid ated for the evalu ation of serum creat inine relat ed to nutri cindy l statu s or medic ation usage . For perso ns <18 years of age, a pedia tric GFR calcu lator is avail able on the F websi te: https ://osnya [email or web address] rg/pr ofess ional s/kdo qi/gf r_cal culat or Not Available [facility] (Lab) [address] [place], [address], 05/22/2022 16:48:12 05/23/19 23 05/22/2022 COMPR EHENS JOSÉ ANTONIO METAB OLIC PANEL alkaline phosphatase 77 U/L 38-126 Not Available [facility] (Lab) [address] [place], [address], 05/22/2022 16:48:12 05/23/19 23 05/22/2022 COMPR EHENS JOSÉ ANTONIO METAB OLIC PANEL alanine aminotransfe rase 23 U/L 0-35 Not Available [facility] (Lab) [address] [place], [address], 05/22/2022 16:48:12 05/23/19 23 05/22/2022 COMPR EHENS JOSÉ ANTONIO METAB OLIC PANEL aspartate aminotransfe rase 28 U/L 15-37 Not Available [facility] (Lab) [address] [place], [address], 05/22/2022 16:48:12 05/23/19 23 05/22/2022 COMPR EHENS JOSÉ ANTONIO METAB OLIC PANEL bilirubin, total 0.60 mg/dL 0.20-1 .30 Not Available [facility] (Lab) [address] [place], [address], 05/22/2022 16:48:12 05/23/19 23 05/22/2022 COMPR EHENS JOSÉ ANTONIO METAB OLIC PANEL calcium 9.7 mg/dL 8.4-10 .2 Not Available [facility] (Lab) [address] [place], [address], 05/22/2022 16:48:12 05/23/19 23 05/22/2022 COMPR EHENS JOSÉ ANTONIO METAB OLIC PANEL total protein 7.5 g/dL 6.3-8. 2 Not Available [facility] (Lab) [address] [place], [address], 05/22/2022 16:48:12 05/23/19 23 05/22/2022 COMPR EHENS JOSÉ ANTONIO METAB OLIC PANEL albumin 4.7 g/dL 3.0-4. 4 high Not Available [facility] (Lab) [address] [place], [address], 05/22/2022 16:48:12 05/23/19 23 05/22/2022 COMPR EHENS JOSÉ ANTONIO METAB OLIC PANEL globulin 2.8 g/dL 2.6-4. 2 Not Available [facility] (Lab) [address] [place], [address], 05/22/2022 16:48:12 05/23/19 23 05/22/2022 COMPR EHENS JOSÉ ANTONIO METAB OLIC PANEL A/G ratio 1.7 ratio 1.0-2. 0 Not Available [facility] (Lab) [address] [place], [address], 05/22/2022 16:48:12 05/23/19 23 05/22/2022 LIPID PANEL cholesterol 203 mg/dL 140-19 9 high NIH SILVESTRE NSUS RECOM MENDA TION FOR SAUD STERO L: ADULT CHILD LOW RISK: <200 <170 BORDE RLINE : <200- 239 ----- HIGH RISK: >240 >200 Not Available [facility] (Lab) [address] [place], [address], 05/22/2022 16:49:38 05/23/19 23 05/22/2022 LIPID PANEL triglyceride s 105 mg/dL 0-150 NIH SILVESTRE NSUS REPOR T RECOM MENDA TION FOR TRIGL YCERI CHEVY: ADULT CHILD LOW RISK: <150 ----- BODER LINE: 150-1 99 ----- HIGH RISK: >200 ----- Not Available [facility] (Lab) [address] [place], [address], 05/22/2022 16:49:38 05/23/19 23 05/22/2022 LIPID PANEL HDL cholesterol 143 mg/dL 40- Not Available [facility] (Lab) [address] [place], [address], 05/22/2022 16:49:38 05/23/19 23 05/22/2022 LIPID PANEL LDL cholesterol, calculated 39 mg/dL 0-130 NIH SILVESTRE NSUS REPOR T RECOM MENDA TIONS FOR LDL: ADULT CHILD LOW RISK <130 <110 (OPTI MAL LDL) <100 ----- BORDE RLINE : 130-1 59 ----- HIGH RISK: >160 >130 A TRIGL YCERI DE RESUL T >400 INVAL IDATE S THE CALCU LATIO N FOR LDL FRACT IONAT ION - THE LDL RESUL T WILL NOT BE REPOR PETER. Not Available [facility] (Lab) [address] [place], [address], 05/22/2022 16:49:38 03/26/19 24 03/26/2023 CBC/C OMPLE TE BLD COUNT W/DIF F white blood cells 7.4 x10'3 /uL 4.2-10 .8 Not Available [facility] (Lab) [address] [place], [address], 03/26/2023 17:07:46 03/26/19 24 03/26/2023 CBC/C OMPLE TE BLD COUNT W/DIF F red blood cells 4.57 x10'6 /uL 3.80-5 .20 Not Available [facility] (Lab) [address] [place], [address], 03/26/2023 17:07:46 03/26/19 24 03/26/2023 CBC/C OMPLE TE BLD COUNT W/DIF F hemoglobin 13.9 g/dL 12.0-1 5.6 Not Available [facility] (Lab) [address] [place], [address], 03/26/2023 17:07:46 03/26/19 24 03/26/2023 CBC/C OMPLE TE BLD COUNT W/DIF F hematocrit 41.8 % 35.7-4 5.7 Not Available [facility] (Lab) [address] [place], [address], 03/26/2023 17:07:46 03/26/19 24 03/26/2023 CBC/C OMPLE TE BLD COUNT W/DIF F mean red cell volume 91.5 fL 82.0-9 9.0 Not Available [facility] (Lab) [address] [place], [address], 03/26/2023 17:07:46 03/26/19 24 03/26/2023 CBC/C OMPLE TE BLD COUNT W/DIF F mean red cell hemoglobin 30.4 pg 27.0-3 3.0 Not Available [facility] (Lab) [address] [place], [address], 03/26/2023 17:07:46 03/26/19 24 03/26/2023 CBC/C OMPLE TE BLD COUNT W/DIF F mean RBC HGB concentratio n 33.3 g/dL 31.0-3 6.0 Not Available [facility] (Lab) [address] [place], [address], 03/26/2023 17:07:46 03/26/19 24 03/26/2023 CBC/C OMPLE TE BLD COUNT W/DIF F red cell distribution width 13.2 % 11.8-1 5.5 Not Available [facility] (Lab) [address] [place], [address], 03/26/2023 17:07:46 03/26/19 24 03/26/2023 CBC/C OMPLE TE BLD COUNT W/DIF F platelets 224 x10'3 /uL 150-40 0 Not Available [facility] (Lab) [address] [place], [address], 03/26/2023 17:07:46 03/26/19 24 03/26/2023 CBC/C OMPLE TE BLD COUNT W/DIF F mean platelet volume 11.1 fL 9.0-12 .4 Not Available [facility] (Lab) [address] [place], [address], 03/26/2023 17:07:46 03/26/19 24 03/26/2023 CBC/C OMPLE TE BLD COUNT W/DIF F neutrophils 51.7 % 39.0-7 2.0 Not Available [facility] (Lab) [address] [place], [address], 03/26/2023 17:07:46 03/26/19 24 03/26/2023 CBC/C OMPLE TE BLD COUNT W/DIF F lymphocytes 32.8 % 16.0-4 7.0 Not Available [facility] (Lab) [address] [place], [address], 03/26/2023 17:07:46 03/26/19 24 03/26/2023 CBC/C OMPLE TE BLD COUNT W/DIF F monocytes 11.2 % 5.0-12 .0 Not Available [facility] (Lab) [address] [place], [address], 03/26/2023 17:07:46 03/26/19 24 03/26/2023 CBC/C OMPLE TE BLD COUNT W/DIF F eosinophils 3.5 % 1.0-7. 0 Not Available [facility] (Lab) [address] [place], [address], 03/26/2023 17:07:46 03/26/19 24 03/26/2023 CBC/C OMPLE TE BLD COUNT W/DIF F basophils 0.7 % 0.0-2. 0 Not Available [facility] (Lab) [address] [place], [address], 03/26/2023 17:07:46 03/26/19 24 03/26/2023 CBC/C OMPLE TE BLD COUNT W/DIF F immature granulocytes 0.1 % 0.00-0 .50 Not Available [facility] (Lab) [address] [place], [address], 03/26/2023 17:07:46 03/26/19 24 03/26/2023 CBC/C OMPLE TE BLD COUNT W/DIF F neutrophils, absolute count 3.81 x10'3 /uL 1.5-8. 0 Not Available [facility] (Lab) [address] [place], [address], 03/26/2023 17:07:46 03/26/19 24 03/26/2023 CBC/C OMPLE TE BLD COUNT W/DIF F lymphocytes, absolute count 2.42 x10'3 /uL 1.07-3 .43 Not Available [facility] (Lab) [address] [place], [address], 03/26/2023 17:07:46 03/26/19 24 03/26/2023 CBC/C OMPLE TE BLD COUNT W/DIF F monocytes, absolute count 0.83 x10'3 /uL 0.29-0 .99 Not Available [facility] (Lab) [address] [place], [address], 03/26/2023 17:07:46 03/26/19 24 03/26/2023 CBC/C OMPLE TE BLD COUNT W/DIF F eosinophils, absolute count 0.26 x10'3 /uL 0.02-0 .53 Not Available [facility] (Lab) [address] [place], [address], 03/26/2023 17:07:46 03/26/19 24 03/26/2023 CBC/C OMPLE TE BLD COUNT W/DIF F basophils, absolute count 0.05 x10'3 /uL 0.01-0 .08 Not Available [facility] (Lab) [address] [place], [address], 03/26/2023 17:07:46 03/26/19 24 03/26/2023 CBC/C OMPLE TE BLD COUNT W/DIF F immature granulocytes ,absolute 0.01 x10'3 /uL 0.00-0 .05 Not Available [facility] (Lab) [address] [place], [address], 03/26/2023 17:07:46 03/26/19 24 03/26/2023 CBC/C OMPLE TE BLD COUNT W/DIF F nucleated red blood cells 0.0 % -0 Not Available [facility] (Lab) [address] [place], [address], 03/26/2023 17:07:46 03/26/19 24 03/26/2023 CBC/C OMPLE TE BLD COUNT W/DIF F NRBC# 0.00 x10'3 /uL Not Available [facility] (Lab) [address] [place], [address], 03/26/2023 17:07:46 03/26/19 24 03/26/2023 COMPR EHENS JOSÉ ANTONIO METAB OLIC PANEL sodium 141 mmol/ L 137-14 5 Not Available [facility] (Lab) [address] [place], [address], 03/26/2023 17:57:57 03/26/19 24 03/26/2023 COMPR EHENS JOSÉ ANTONIO METAB OLIC PANEL potassium 4.3 mmol/ L 3.5-5. 1 Not Available [facility] (Lab) [address] [place], [address], 03/26/2023 17:57:57 03/26/19 24 03/26/2023 COMPR EHENS JOSÉ ANTONIO METAB OLIC PANEL chloride 107 mmol/ L 98-107 Not Available [facility] (Lab) [address] [place], [address], 03/26/2023 17:57:57 03/26/19 24 03/26/2023 COMPR EHENS JOSÉ ANTONIO METAB OLIC PANEL carbon dioxide 28 mmol/ L 22-30 Not Available [facility] (Lab) [address] [place], [address], 03/26/2023 17:57:57 03/26/19 24 03/26/2023 COMPR EHENS JOSÉ ANTONIO METAB OLIC PANEL anion gap 10.3 mmol/ L 14-22 low Not Available [facility] (Lab) [address] [place], [address], 03/26/2023 17:57:57 03/26/19 24 03/26/2023 COMPR EHENS JOSÉ ANTONIO METAB OLIC PANEL glucose 63 mg/dL 70-99 low Not Available [facility] (Lab) [address] [place], [address], 03/26/2023 17:57:57 03/26/19 24 03/26/2023 COMPR EHENS JOSÉ ANTONIO METAB OLIC PANEL BUN 23 mg/dL 8-19 high Not Available [facility] (Lab) [address] [place], [address], 03/26/2023 17:57:57 03/26/19 24 03/26/2023 COMPR EHENS JOSÉ ANTONIO METAB OLIC PANEL creatinine 1.29 mg/dL 0.66-1 .25 high Not Available [facility] (Lab) [address] [place], [address], 03/26/2023 17:57:57 03/26/19 24 03/26/2023 COMPR EHENS JOSÉ ANTONIO METAB OLIC PANEL GFR 41 Refer ence Range : [place] ge GFR Healt hy Adult : >60 mL/mi n/1.7 3 m2 Chron ic Kidne y Disea se: 15-60 mL/mi n/1.7 3 m2 Kidne y Failu re: <15/m L/min /1.73 m2 www.n iddk. nih.g ov The MDRD study equat ion has not been valid ated in child patrice <18 years of age; pregn ant women ; the elder ly >85 years of age; or in some racia l or ethni c subgr oups, such as Hispa nics. Outsi de the valid ated trudi eters , estim ated GFR is less accur ate, requi ring clini marquis judgm ent on a case- by-ca se basis . Clini marquis inter preta tion for other races and ages must be made by the clini zohra. The MDRD study equat ion has not been valid ated for the evalu ation of serum creat inine relat ed to nutri cindy l statu s or medic ation usage . For perso ns <18 years of age, a pedia tric GFR calcu lator is avail able on the [facility] websi te: https :[email or web address] corcoran.[email or web address].o rg/pr ofess ional s/kdo qi/gf r_cal culat or Not Available [facility] (Lab) [address] [place], [address], 03/26/2023 17:57:57 03/26/19 24 03/26/2023 COMPR EHENS JOSÉ ANTONIO METAB OLIC PANEL alkaline phosphatase 77 U/L 38-126 Not Available [facility] (Lab) [address] [place], [address], 03/26/2023 17:57:57 03/26/19 24 03/26/2023 COMPR EHENS JOSÉ ANTONIO METAB OLIC PANEL alanine aminotransfe rase 17 U/L 0-35 Not Available [facility] (Lab) [address] [place], [address], 03/26/2023 17:57:57 03/26/19 24 03/26/2023 COMPR EHENS JOSÉ ANTONIO METAB OLIC PANEL aspartate aminotransfe rase 23 U/L 15-37 Not Available [facility] (Lab) [address] [place], [address], 03/26/2023 17:57:57 03/26/19 24 03/26/2023 COMPR EHENS JOSÉ ANTONIO METAB OLIC PANEL bilirubin, total 0.10 mg/dL 0.20-1 .30 low Not Available [facility] (Lab) [address] [place], [address], 03/26/2023 17:57:57 03/26/19 24 03/26/2023 COMPR EHENS JOSÉ ANTONIO METAB OLIC PANEL calcium 9.6 mg/dL 8.4-10 .2 Not Available [facility] (Lab) [address] [place], [address], 03/26/2023 17:57:57 03/26/19 24 03/26/2023 COMPR EHENS JOSÉ ANTONIO METAB OLIC PANEL total protein 6.6 g/dL 6.3-8. 2 Not Available [facility] (Lab) [address] [place], [address], 03/26/2023 17:57:57 03/26/19 24 03/26/2023 COMPR EHENS JOSÉ ANTONIO METAB OLIC PANEL albumin 4.1 g/dL 3.0-4. 4 Not Available [facility] (Lab) [address] [place], [address], 03/26/2023 17:57:57 03/26/19 24 03/26/2023 COMPR EHENS JOSÉ ANTONIO METAB OLIC PANEL globulin 2.5 g/dL 2.6-4. 2 low Not Available [facility] (Lab) [address] [place], [address], 03/26/2023 17:57:57 03/26/19 24 03/26/2023 COMPR EHENS JOSÉ ANTONIO METAB OLIC PANEL A/G ratio 1.6 ratio 1.0-2. 0 Not Available [facility] (Lab) [address] [place], [address], 03/26/2023 17:57:57 03/26/19 24 03/26/2023 LIPID PANEL cholesterol 187 mg/dL 140-19 9 NIH SILVESTRE NSUS RECOM MENDA TION FOR SAUD STERO L: ADULT CHILD LOW RISK: <200 <170 BORDE RLINE : <200- 239 ----- HIGH RISK: >240 >200 Not Available [facility] (Lab) [address] [place], [address], 03/26/2023 17:58:00 03/26/19 24 03/26/2023 LIPID PANEL triglyceride s 215 mg/dL 0-150 high NIH SILVESTRE NSUS REPOR T RECOM MENDA TION FOR TRIGL YCERI CHEVY: ADULT CHILD LOW RISK: <150 ----- BODER LINE: 150-1 99 ----- HIGH RISK: >200 ----- Not Available [facility] (Lab) [address] [place], [address], 03/26/2023 17:58:00 03/26/19 24 03/26/2023 LIPID PANEL HDL cholesterol 107 mg/dL 40- Not Available [facility] (Lab) [address] [place], [address], 03/26/2023 17:58:00 03/26/19 24 03/26/2023 LIPID PANEL LDL cholesterol, calculated 37 mg/dL 0-130 NIH SILVESTRE NSUS REPOR T RECOM MENDA TIONS FOR LDL: ADULT CHILD LOW RISK <130 <110 (OPTI MAL LDL) <100 ----- BORDE RLINE : 130-1 59 ----- HIGH RISK: >160 >130 A TRIGL YCERI DE RESUL T >400 INVAL IDATE S THE CALCU LATIO N FOR LDL FRACT IONAT ION - THE LDL RESUL T WILL NOT BE REPOR PETER. Not Available [facility] (Lab) [address] [place], [address], 03/26/2023 17:58:00 12/08/19 22 12/06/2021 scree manisha fregoso t jay, bilat [facility] [address] [place] [address] [phone] [facility] JENNI BERNAL Access ion #: [id number] Sex: F : 1955 1 Locati on: RAD Attend ing Physic celso: LIA PATEL Orderi ng Physic celso: LIA PATEL Exam Date: 3:42 PM Exam Name: MG DELCID BREAST JAY BILAT Admitt ing Diagno sis(es ): MAMMOG LAURA REPORT - FINAL EXAM: MG DELCID BREAST JAY BILAT HISTOR Y: screen ing mammog [place] 66-yea r-old female with no curren t breast compla ints. COMPAR MARIAM: 2020 TECHNI QUE: Bilate ral CC and MLO views of the breast s were perfor med. Digita l Mammog laura images were obtain ed. CAD (compu ter assist ed detect ion) was utiliz ed. 3D Digita l breast tomosy nthesi s was perfor med and used in the interp retati on of images . FINDIN GS: The breast s are almost entire ly fatty. No masses , asymme tries, suspic ious calcif icatio ns, or haley ectura l Page 1 of 2 [facility] Ashia stanford Name: JENNI BERNAL Access ion #: [id number] Sex: F : 1955 1 Exam Date: 3:42 PM Exam Name: MG DELCID BREAST JAY BILAT Admitt ing Diagno sis(es ): distor tion are seen. IMPRES BERTRAND: BIRADS 1: Assess ment comple te. Negati ve. Recomm end annual screen ing mammog laura. Accord ing to the [employer], yearly mammog felicita are recomm ended starti ng at age 40 and contin uing as long as the woman is in good health . Clinic al Breast Exam should be part of the period ic health exam-a bout every 3 years for women in their 20s and 30s and every year for women 40 and over. Breast self-e xam is an option for women in their 20s. Any breast change noted on the breast self-e xam she would be report ed prompt ly to the [facility]. A negati ve mammog laura report should not discou rage follow -up or biopsy of a clinic ally signif icant findin g and/or abnorm ality. Dense breast tissue may obscur e small neopla sms. This ashia stanford has been entere d into a mammog laura remind er system with a target date for her next mammog palmira. Create d and electr onical ly signed by: James cortez MD Signed Date: 9:54 AM (CT) Dictat ed by: James cortez MD DD: 9:54 AM (CT) DT: 9:54 AM (CT) Page 2 of 2 [id number] [facility] (Imaging) [address] [place], [address], 05/08/2022 05:06:44 Result Notes None recorded. Problems Name Problem SNOMED Code Status Onset Date Resolution Date Notes Provider Name and Address Organization Details Recorded Time Vitamin D below reference range 072250027 Active 2020 Not Available [facility] 4 20:25:12 Chronic back pain 672076963 Active 2019 Not Available [facility] 4 20:25:12 Dyslipidemia 136746222 Active 2020 Not Available [facility] 4 20:25:12 Easy bruising 499124565 Active 2021 Not Available [facility] 4 20:25:12 Cough 16876642 Active 2021 Not Available [facility] 4 20:25:12 Respiratory syncytial virus infection 53906961 Active 2021 Not Available [facility] 4 20:25:12 Essential hypertension 78937264 Active 2019 Not Available [facility] 4 20:25:12 Problem Notes None recorded. Procedures Surgical History Date Name Laterality Status Provider Name and Address Organization Details Recorded Time 07/08/20 21 Most Recent Bone Density completed Not Available [facility] 05/08/2022 04:41:34 09/07/19 16 Date of Last Colonoscopy completed Not Available [facility] 05/08/2022 04:41:33 total replacement of hip completed Not Available [facility] 05/08/2022 04:41:40 Tonsillectomy completed Not Available [facility] 05/08/2022 04:41:40 Imaging Results Imaging Date Name Status LastModified by Organiz ation Details LastModified Time 12/06/2021 screening breast jay, bilat completed [id number] [facility] (Imaging) [address] [facility], [place], [address], 05/08/2022 05:06:44 Procedure Notes None recorded. Medical Equipment None Reported. Allergies No known drug allergies Medications Name Sig Start Date Stop Date Status Note LastModified by Organization Details LastModified Time atorvastati n 10 mg tablet TAKE 1 TABLET BY MOUTH EVERY DAY 2023 active Not Available Not Available Not Avai lable benzonatate 200 mg capsule Take 1 capsule 3 times a day by oral route as needed. 05/22 completed Not Available Not Available Not Available meloxicam 15 mg tablet TAKE 1 TABLET BY MOUTH EVERY DAY active Not Available Not Available No t Available Kenalog 10 mg/mL suspension for injection In office injection administe red by the provider 01/09 completed [facility]: 0003- [id number]- [id number] Not Available Not Available Not Available baclofen 10 mg tablet TK 1 T PO TID AFTER MEALS 08/04 completed Not Available Not Available Not Available gabapentin 300 mg capsule TAKE 1 CAPSULE BY MOUTH THREE TIMES DAILY 2023 active Not Available Not Available Not Avai lable raloxifene 60 mg tablet TK 1 T PO QD 09/05 completed Not Available Not Available Not Available ergocalcife rol (vitamin D2) 1,250 mcg (50,000 unit) capsule TAKE ONE TABLET WEEKLY active Not Available Not Available No t Available lisinopril 40 mg tablet TAKE 1 TABLET BY MOUTH EVERY DAY active Not Available Not Available No t Available hydroxyzine pamoate 25 mg capsule TAKE 1 CAPSULE BY MOUTH EVERY DAY AT BEDTIME 05/22 completed Not Available Not Available Not Available lidocaine (PF) 10 mg/mL (1 %) injection solution In office injection administe red by the provider 01/09 completed [facility]: 0409- 4276- [phone] Not Available Not Available Not Available Afluria Qd 2018- (36 mos up)(PF)60 mcg (15 mcg x4)/0.5 mL IM syringe ADM 0.5ML IM UTD 08/11 completed Not Available Not Available Not Available Flulaval Quad (PF) 60 mcg (15 mcg x 4)/0.5 mL IM syringe ADM 0.5ML IM UTD 08/04 completed Not Available Not Available Not Available [employer] COVID-19 Ag Self Test kit TEST DIRECTED TODAY 05/22 completed Not Available Not Available Not Available Vitals Date Recorded Body mass index (BMI) Body height Heart rate Body temperature Body weight Systolic blood pressure Diastolic blood pressure Provider Name and Address Organization Details Last Updated DateTime 2 31.5 kg/m2 157.48 cm 72 /min 97.4 [degF] 49074.8 9 g 124 mm[Hg] 70 mm[Hg] Not Available [facility] 3 04:45:19 Date Recorded Body mass index (BMI) Body height Heart rate Body temperature Body weight Systolic blood pressure Diastolic blood pressure Provider Name and Address Organization Details Last Updated DateTime 2 30.5 kg/m2 157.48 cm 67 /min 98.2 [degF] 11367.9 3 g 138 mm[Hg] 74 mm[Hg] Not Available [facility] 3 04:45:19 Date Recorded Body height Body mass index (BMI) Body weight Body temperature Heart rate Systolic blood pressure Diastolic blood pressure Provider Name and Address Organization Details Last Updated DateTime 3 157.48 cm 31.1 kg/m2 32938.7 g 98.4 [degF] 66 /min 124 mm[Hg] 68 mm[Hg] Ana carvalho RN [place] [employer] [facility] 3 14:49:05 Date Recorded Body height Body mass index (BMI) Body weight Body temperature Heart rate Systolic blood pressure Diastolic blood pressure Provider Name and Address Organization Details Last Updated DateTime 3 157.48 cm 30.7 kg/m2 60602.5 2 g 98.1 [degF] 68 /min 140 mm[Hg] 84 mm[Hg] COLLEEN Pollock [facility] [employer] [facility] 3 14:37:41 Date Recorded Body height Body mass index (BMI) Body weight Body temperature Heart rate Respiratory rate Oxygen saturation Oxygen saturation in Arterial blood by Pulse oximetry Systolic blood pressure Diastolic blood pressure Provider Name and Address Organization Details Last Updated DateTime 4 157.48 cm 31.6 kg/m2 55894.0 4 g 98.4 [degF] 71 /min 20 /min 98 % 98 % 148 mm[Hg] 82 mm[Hg] Julieta Youssef RN [facility] [employer] [facility] 4 14:54:56 Social History Question Answer Notes LastModified by Organization Details LastModified Time Tobacco Smoking Status Former Smoker quit 2009 [employer] [facility] [employer] 11/20/2022 14:23:29 Do You Have An Advance Directive? No [id number] Information not available 05/08/2022 What Is Your Level Of Alcohol Consumption? None [id number] Information not available 05/08/2022 Are You Blind Or Do You Have Difficulty Seeing? Yes Wears Glasses Information not available 11/20/2022 What Is Your Level Of Caffeine Consumption? Occasional [id number] Information not available 05/08/2022 How Much Tobacco Do You Chew? None [id number] Information not available 05/08/2022 In The 14 Days Before Symptom Onset, Have You Had Close Contact With A Laboratory-confi rmed COVID-19 While That Case Was Ill? No Information not available 11/20/2022 In The 14 Days Before Symptom Onset, Have You Had Close Contact With A Person Who Is Under Investigation For COVID-19 While That Person Was Ill? No Information not available 11/20/2022 Are You Currently Employed? Yes Information not available 11/20/2022 Are You Deaf Or Do You Have Serious Difficulty Hearing? No Information not available 11/20/2022 What Type Of Diet Are You Following? REGULAR [id number] Information not available 05/08/2022 Which Illicit Or Recreational Drugs Have You Used? None Information not available 11/20/2022 Do You Or Have You Ever Used E-cigarettes Or Vape? Never Used Electronic Cigarettes Information not available 11/20/2022 What Is The Highest Grade Or Level Of School You Have Completed Or The Highest Degree You Have Received? 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 No Information not available 11/20/2022 What Is The Fluoride Status Of Your Home? Unknown Information not available 11/20/2022 When Did You Quit Smoking? 11-15yearssincelas tcigarette Information not available 11/20/2022 Are There Any Guns Present In Your Home? No Information not available 11/20/2022 Do You Use Insect Repellent Routinely? No Information not available 11/20/2022 Where Do You Live? SingleLevelHouse Information not available 11/20/2022 Do You Have A Medical Power Of Supervisor Last Model Department? No Information not available 11/20/2022 What Was The Date Of Your Most Recent Tobacco Screening? 11/20/2022 [email or web address] Information not available 11/20/2022 Do You Have Any Pets? Yes Information not available 11/20/2022 What Is Your Relationship Status? [id number] Information not available 05/08/2022 Do You Use Your Seat Belt Or Car Seat Routinely? Yes Information not available 11/20/2022 Do You Have Smoke And Carbon Monoxide Detectors In Your Home? Yes Information not available 11/20/2022 At What Age Did You Start Smoking Tobacco? 13 Information not available 11/20/2022 Are You Passively Exposed To Smoke? No Information not available 11/20/2022 Do You Or Have You Ever Used Smokeless Tobacco? Never Used Smokeless Tobacco [id number] Information not available 05/08/2022 Are There Any Smokers In Your House? No Information not available 11/20/2022 How Much Tobacco Do You Smoke? No [id number] Information not available 05/08/2022 What Types Of Sporting Activities Do You Participate In? None Information not available 11/20/2022 Do You Feel Stressed (tense, Restless, Nervous, Or Anxious, Or Unable To Sleep At Night)? [id number] Information not available 11/20/2022 Do You Use Any Illicit Or Recreational Drugs? No Information not available 11/20/2022 Do You Use Sunscreen Routinely? Yes Information not available 11/20/2022 Has Tobacco Cessation Counseling Been Provided? No Information not available 11/20/2022 Have You Recently Traveled Abroad? No Information not available 11/20/2022 Do You Have Any Dietary Restrictions? No Information not available 11/20/2022 Do You Or Have You Ever Used Any Other Forms Of Tobacco Or Nicotine? No Information not available 11/20/2022 Sex: Female Functional Status Question Answer Note LastModified by Organizat ion Details LastModified Time Do you have difficulty walking or climbing stairs? No Information not available 11/20/2022 Do you have transportation difficulties? No Information not available 11/20/2022 Are you able to walk? YESWOREST Information not available 11/20/2022 Do you have difficulty doing errands alone? No Information not available 11/20/2022 Are you able to care for yourself? Yes Information n ot available 11/20/2022 Do you have difficulty dressing or bathing? No Information not available 11/20/2022 What is your exercise level? Occasional [id number] Information not available 05/08/2022 Mental Status Question Answer Note LastModified by Organization D etails LastModified Time Do you have difficulty concentrating, remembering or making decisions? No Information no t available 11/20/2022 Family History Relationship Description Onset Age of this Age Resolved Age Notes LastModified by Organization Details LastModified Time Mother Renal cell carcinoma Not available 2022 14:23:26 Mother Hypertensive disorder [id number] Not available 05/08/2022 04:41:46 Mother Kidney disease [id number] Not available 05/08/2022 04:41:46 Father Hypertensive disorder [id number] Not available 05/08/2022 04:41:46 Medical History Condition Response NERVE DISEASE N BLINDNESS N RHEUMATIC FEVER N KIDNEY STONES N BLADDER PROBLEMS N MRSA N OTHER # 1 Y POLIO N LUNG DISEASE/DISORDER N RADIATION / CHEMOTHERAPY N COPD N Other # 2 N BLOOD DISEASES N EAR OR HEARING PROBLEMS N MUMPS N BOWEL PROBLEMS N DEPRESSION (INCLUDING POST ) N STROKE/TIA N ULCERS N BENIGN PROSTATIC HYPERPLASIA N MEASLES N MYOCARDIAL INFARCTION N OBESITY N GERD/NAUSEA N ANEURYSM N URINARY/BLADDER/KIDNEY PROBLEMS N CORONARY ARTERY DISEASE (CAD) N ADDICTION CONCERNS N ENDOMETRIOSIS N Impotence N USE OF BLOOD THINNERS N SKIN PROBLEMS N GASTROINTESTINAL DISORDER N PERIPHERAL VASCULAR DISEASE N MUSCLE,JOINT OR BONE PROBLEMS N GASTROINTESTINAL BLEEDING N BLOOD CLOTS N ASTHMA N CATARACTS N ERECTILE DYSFUNCTION N VARICOSITIES N GI PROBLEMS N Low Testosterone N INFERTILITY N AIDS/HIV N CHEMOTHERAPY / RADIATION N LIVER DISEASE N MALE HYPOGONADISM N HYPERTENSION Y Deficiency N TOURETTE'S N ANXIETY DISORDER N BLOOD TRANSFUSION N ANEMIA/BLOOD DISORDER N CHRONIC EAR INFECTIONS N BRONCHITIS N TUBERCULOSIS N GLAUCOMA N FOOT PROBLEM N DIVERTICULITIS N SLEEP APNEA N CHICKENPOX N INFECTIOUS DISEASE N HEART ARRHYTHMIA N PROSTATE N INSOMNIA N HIGH CHOLESTEROL / HYPERLIPIDEMIA N HYPERTHYROIDISM N EYE PROBLEMS N EDEMA N CHRONIC PAIN SYNDROME N HYPOTHYROIDISM N CAROTID BLOCKAGE N CONSTIPATION N BACK / NECK PROBLEMS Y HAVE YOU BEEN HOSPITALIZED OR SEEN IN [facility] IN THE PAST YEAR ? N ATHEROSCLEROSIS N BREAST PROBLEMS N DIALYSIS N ECZEMA N OSTEOPOROSIS N ARTHRITIS Y APPENDICITIS N DIABETES, TYPE N BAD TEETH N ENT N HEARTBURN / REFLUX N AUTISM SPECTRUM DISORDER (ASD) N HEPATITIS / LIVER DISEASE N GOUT N SLEEP DISORDER N ALZHEIMER'S DISEASE N Brain Problems N HERPES N DEMENTIA N HEADACHES/MIGRAINES N SEIZURES/EPILEPSY N VASCULAR DISEASE N PACEMAKER N Blood Disorder N DIZZINESS N HEART DISEASE/HEART PROBLEMS N KIDNEY DISEASE N MULTIPLE SCLEROSIS N CARDIAC ARRHYTHMIA N CANCER: SPECIFY N ATRIAL FIBRILLATION N Gall Stones N PULMONARY EMBOLISM N AUTOIMMUNE DISEASE N Gynecological History Statement/Question Response Date of Last Mammogram 08/11/2020 Date of Last Colonoscopy 09/07/2015 Most Recent Bone Density 09/14/2020 Obstetrics History GPAL:G 0 P 0 0 0 0 Immunizations Vaccine Type Date Status Note Provider Nam e and Address Organization Details Recorded Time COVID-19, mRNA, LNP-S, PF, 30 mcg/0.3 mL dose 1 completed Not Available [facility] 03/28/2023 20:25:12 COVID-19, mRNA, LNP-S, PF, 30 mcg/0.3 mL dose 2 completed Not Available [facility] 03/28/2023 20:25:12 Influenza, high-dose, quadrivalent, PF 1 completed Not Available [facility] 03/28/2023 20:25:12 COVID-19, mRNA, LNP-S, PF, 30 mcg/0.3 mL dose 1 completed Not Available [facility] 03/28/2023 20:25:12 COVID-19, mRNA, LNP-S, PF, 30 mcg/0.3 mL dose 1 completed Not Available [facility] 03/28/2023 20:25:12 Influenza, split virus, trivalent, preservative 0 completed Not Available [facility] 03/28/2023 20:25:13 Influenza, split virus, quadrivalent, preservative 9 completed Not Available [facility] 03/28/2023 20:25:12 Pneumococcal conjugate PCV 13 1 completed Not Available [facility] 03/28/2023 20:25:12 Past Encounters Encounter ID Performer Location Encounter Start Date Encounter Closed Date Diagnosis/Indication Diagnosis SNOMED-CT Code Diagnosis ICD10 Code Diagnosis Note [id number] [facility] [address] [facility] 15 [place] [address] 08/04/2020 00:00:00 08/06/2020 15:04:33 [id number] [facility] [place] [address] [place] [address] 09/05/2020 00:00:00 09/05/2020 10:57:11 [id number] [facility] [address] [facility] 15 [place] [address] 09/12/2020 00:00:00 09/17/2020 22:03:02 [id number] [facility] [place] [address] [place] [address] 10/03/2020 00:00:00 10/03/2020 13:25:59 [id number] [facility] [place] [address] [place] [address] 11/07/2020 00:00:00 11/07/2020 10:41:52 [id number] [facility] [place] [address] [place] [address] 12/19/2020 00:00:00 12/19/2020 09:20:18 [id number] [facility] [address] [place] [address] [place] [address] 01/09/2021 00:00:00 01/10/2021 20:49:56 [id number] [facility] [address] [place], [place] [address]e., [address] [address] 05/21/2021 00:00:00 05/27/2021 21:22:38 [id number] [facility] [address] [place], [place] [address]e., [address] [address] 11/28/2021 00:00:00 01/07/2022 22:07:09 [id number] John Patel MD [facility] [address] [address] 05/22/2022 14:35:05 05/22/2022 15:36:46 Essential hypertension 05783289 I10 Chronic back pain 540306 002 M54.9 Vitamin D below reference range 853928468 E55.9 Dyslipidemia 927804156 E 78.5 [id number] John Patel MD [facility] [address] [place], [place] [address]., [address] [address] 11/20/2022 14:22:23 11/20/2022 15:02:35 Dyslipidemia 523587668 E78.5 Vitamin D below reference range 174364182 E55.9 Essential hypertension 39798808 I10 [id number] John Patel MD [facility] [address] [address] 03/26/2023 14:38:32 03/26/2023 15:55:23 Dyslipidemia 410574705 E78.5 Essential hypertension 00939081 I10 Chronic back pain 421276 002 M54.9 Health Concerns Section Related Observation LastModified by Organization Detai ls LastModified Time None Recorded Concern Status LastModified by Organization Details LastModified Time None Recorded Advance Directives Directive N: Payers Encounter Date Sequence Insurance Name Policy Number Policy [place] Covered Member ID [place] Member ID Guarantor Name 05/22/2022 1 [facility] (MEDICARE REPLACEMENT/A DVANTAGE - HMO) [id number] Ree Harris [id number] Ree Guerreroedemadiane 11/20/2022 1 [employer] [facility] (MEDICARE REPLACEMENT/A DVANTAGE - HMO) [id number] Ree Harris [id number] Ree Guerreroedemadiane 03/26/2023 1 [facility] (MEDICARE REPLACEMENT/A DVANTAGE - HMO) [id number] Ree Harris [id number] Ree Harris Notes Date Note Type Note Provider Name and Address Organization Details Recorded Time 05/22/2022 text/html Hypertension no headache no dizzinesspain seemed control with gabapentinlow vitamin-D level take ixwc-rzo-lysuwqdnlr lipidemia low-fat diet atorvastatin John Patel MD [address], [place], [address], [employer] 05/22/2022 21:13:59 11/20/2022 text/html Hypertension no headache no dizzinesspain seemed control with gabapentinlow vitamin-D level take mkot-llh-uuntytraap lipidemia low-fat diet atorvastatin John Patel MD [address], [place], [address], [employer] 12/03/2022 10:42:43 03/26/2023 text/html Dyslipidemia wale ing the atorvastatin with no side effects does try to watch her intake of fat. Hypertension no chest pain or headache.Chronic back pain appears stable no bowel or bladder problems John Patel MD [address], [place], [address], [employer] 04/05/2023 15:42:12 OBGyn Episode No OBEpisode recorded.
--- OUTSIDE RECORDS SUMMARY | 2024-04-05 15:45 | XMS_ITS | Continuity of Care Document ---
Author Organization [facility] Address [address] [place] [address] Phone Care Team Providers Care Menagerie Superintendent Name Role Phone Cecil Ibarra MD Unavailable Unavailable Advance Directives Directive Yes / No Effective Date File Name No Information Encounters Encounter Description Practice Location Reason(s) For Visit Diagnoses Date Provider Providers Copied on Encounter [facility], [address], [place], [place], [id number], [place] tel:[phone] [place] No Information Fred Jacob. [address], [address], [place], [place], [address], [place]. tel:[phone] Family History Family Member Type Diagnosis Age At Onset No Information Payers Payer name Insurance type Covered green party ID Authoriza tion(s) No Information Social History Type Description Quantity Date Captured Comments Sex Female Smoking Status No Information Chief Complaint And Reason For Visit No Information Reason For Referral Reason For Referral No Information History Of Present Illness Encounter Date Complaint History Of Prese nt Illness No Information Functional Status Date Functional Assessmen t No Information Instructions Date Instruction Additional Infor mation No Information Assessments Type Assessment Date No Information Patient Care Teams Name Effective Dates (start - stop) Status Members No Information
--- OUTSIDE RECORDS SUMMARY | 2024-04-05 15:45 | XMS_ITS | Clinical Summary ---
Author Organization [facility] Address [address] [place], [place] [address] [place] [address] Care Team Providers Care Director Food And Beverage Name Role Phone Malia Esquivel MD Primary Care Provider [phone] Social History Tobacco Use Types Packs/Day Years Used Date Smoking Tobacco: Never Assessed Comments Unknown Sex and Gender Information Value Date Recorded Sex Assigned at Not on file Legal Sex Female 9:01 PM CDT Gender Identity Not on file Sexual Orientation Not on file Last Filed Vital Signs Vital Sign Reading Time Taken Comments Blood Pressure 140/92 08/28/2015 1:50 PM CDT Pulse - - Temperature - - Respiratory Rate - - Oxygen Saturation - - Inhaled Oxygen Concentration - - Weight 85.7 kg (189 lb) 10/22/2017 2:44 PM CDT Height 157.5 cm (5' 2 ) 10/22/2017 2:44 PM CDT Body Mass Index 34.57 10/22/2017 2:44 PM CDT Plan of Treatment Health Maintenance Due Date Last Done Comments Colorectal Cancer Screening Colonoscopy (10 Years) 1955 Hepatitis C 1972 DTaP, Tdap and Td Vaccines ( 1 - Tdap) 1973 Mammogram Screening 1994 Zoster Vaccines (1 of 2) 2004 Dexa Scan (General) 07/15/2019 Pneumococcal Vaccine: 65+ Ye ars (2 of 2 - PCV) 07/15/2019 04/23/2014 COVID-19 Vaccine ( - 2023-2 5 season) 2023 Influenza Adult (#1) 2023 01/02/2016 RSV Immunization or 60+ Years (1 - 1-dose 75+ series) 2029 Meningococcal B Vaccine Aged Out No l onger eligible based on patient's age to complete this topic Meningococcal Vaccine Aged Out No yoly alessandra eligible based on patient's age to complete this topic RSV Immunizations Under 20 Months Aged Out No longer eligible based on patient's age to complete this topic Insurance Advance Directives Documents on File Type Date Recorded 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
--- OUTSIDE RECORDS SUMMARY | 2024-04-05 15:45 | XMS_ITS | Referral Summary ---
Author Organization [facility] Address [address] [place] [address] Care Team Providers Care Fly Frame Tender Name Role Phone Keyona Castro RN Unavailable [phone] Malia Esquivel MD Primary Care Provider [phone] Source Comments [facility],non-owned Affiliates and Associated Physician Practices is amultiple site organization consisting of ambulatory clinics and hospital sitesin [place], [place], [place] and [place]. This disclosure is being madepursuant to the Care Everywhere program and may not contain all information available regarding this patient. Last updated 17.[facility] Allergies No known active allergies Medications * Be aware that medications may not be up to date on this document. Alwaysverify current medications with the patient. Medication Sig Dispensed Refills Start Date End Date Status lisinopril (PRINIVIL; ZESTRIL) 40 MG tablet Take 40 mg by mouth once daily Active gabapentin (NEURONTIN) 300 MG capsule Take 300 mg by mouth 3 times daily Active baclofen (LIORESAL) 10 MG tablet Take 10 mg by mouth 3 times daily May cause drowsiness. Active raloxifene (EVISTA) 60 MG tablet Take 60 mg by mouth once daily Active calcium carbonate (CALTRATE) 600 MG tablet Take 1 Tab by mouth daily with food Active estrogens, conjugated, (PREMARIN) 0.625 MG tablet Take 0.625 mg by mouth once daily Active Immunizations Name Administration Dates Next Due FLU VACCINE QUAD IIV4 PF ID 01/02/2016 PNEUMOCOCCAL [id number] 04/23/2014 Social History Tobacco Use Types Packs/Day Years Used Date Smoking Tobacco: Former Smokeless Tobacco: Never Tobacco Cessation:Counseling Given: Yes Comments:quit 4 months ago Alcohol Use Standard Drinks/Week Comments No 0 (1 standard drink = 0.6 oz pur e alcohol) Sex and Gender Information Value Date Recorded Sex Assigned at Not on file Gender Identity Not on file Sexual Orientation Not on file Last Filed Vital Signs Vital Sign Reading Time Taken Comments Blood Pressure 153/105 09/07/2015 11:30 AM CDT Pulse 68 09/07/2015 11:30 AM CDT Temperature 37 ??C (98.6 ??F) 09/07/2015 10:29 AM CDT Respiratory Rate 21 09/07/2015 11:30 AM CDT Oxygen Saturation 99% 09/07/2015 11:30 AM CDT Inhaled Oxygen Concentration - - Weight 81.6 kg (180 lb) 09/07/2015 10:29 AM CDT Height 157.5 cm (5' 2 ) 09/07/2015 10:29 AM CDT Body Mass Index 32.92 09/07/2015 10:29 AM CDT Functional Status Functional Status Response Date of Assess ment Is person deaf or have serious hearing difficult y? No 09/07/2015 Is person blind or have serious difficulty seein g? No 09/07/2015 Does person have serious dif ficulty walking/climbing stairs? No 09/07/2015 Does person have difficulty dressing/bathing? No 09/07/2015 Does person have difficulty doing errands alone? No 09/07/2015 Cognitive Status Response Date of Assessm ent Does person have difficulty concentrating/remembering/making decisions? No 09/07/2015 Plan of Treatment Not on file Procedures Procedure Name Priority Date/Time Associated Diagnosis Comments ENDOSCOPY, COLON, SCREENING Routine 09/07/2015 10:32 AM CDT DEXA BONE DENSITY 2 SITES Routine 06/16/2015 9:06 AM CDT Menopausal and postmenopausal disorder from Last 3 Months or Most Recently Relevant to Health Maintenance Results * ENDOSCOPY, COLON, SCREENING (09/07/2015 10:32 AM CDT) Report Endoscopy POC _ Patient Name: Ree Harris ?Procedure Date: 09/07/2015 10:32 AM ? Date of : 1955 ? Admit Type: Outpatient Age: 60 ? Gender: Female Attending MD: Shashi Fields, ? _ Procedure: ? Colonoscopy Indications: ? Screening for colorectal malignant neoplasm Providers: ? Shashi Fields (Doctor), Liseth Bishop RN, Dory Sanchez, ? Steno Typist Patient Profile: ?? 60F pmh HTN, obesity here for screening colonoscopy avg ? risk Referring MD: ?Todd Esquivel MD (Referring MD) Medicines: ? Monitored Anesthesia Care Complications: ? No immediate complications. _ Procedure: ? After I obtained informed consent, the scope was passed ? under direct vision. Throughout the procedure, the ? patient's blood pressure, pulse, and oxygen saturations ? were monitored continuously. The Colonoscope was ? introduced through the anus and advanced to the cecum, ? identified by appendiceal orifice and ileocecal valve. The ? colonoscopy was performed without difficulty. The patient ? tolerated the procedure well. The quality of the bowel ? preparation was good. ? Impression: ?- Non-thrombosed external hemorrhoids found on digital ? rectal exam. ? - One 10 mm polyp in the sigmoid colon. Complete ? resection. Polyp tissue not retrieved. ? - Internal hemorrhoids. ? - The examination was otherwise normal. Findings: ? The digital rectal exam findings include non-thrombosed external ? hemorrhoids. ? A 10 mm polyp was found in the sigmoid colon. The polyp was ? semi-sessile. The polyp was removed with a hot snare. Resection was ? complete, but the polyp tissue was not retrieved. ? Internal hemorrhoids were found during retroflexion. The hemorrhoids ? were small. ? The exam was otherwise without abnormality. _ Recommendation: ?- High fiber diet. ? - Surveillance colonoscopy in 3 yrs ? Procedure Code(s): ? --- Professional --- ? 39944, Colonoscopy, flexible; with removal of tumor(s), polyp(s), or ? other lesion(s) by snare technique ? --- Technical --- ? 34400, Colonoscopy, flexible; with removal of tumor(s), polyp(s), or ? other lesion(s) by snare technique Diagnosis Code(s): ? --- Professional --- ? Z12.11, Encounter for screening for malignant neoplasm of colon ? K64.4, Residual hemorrhoidal skin tags ? K64.8, Other hemorrhoids ? D12.5, Benign neoplasm of sigmoid colon ? --- Technical --- ? Z12.11, Encounter for screening for malignant neoplasm of colon ? K64.4, Residual hemorrhoidal skin tags ? K64.8, Other hemorrhoids ? D12.5, Benign neoplasm of sigmoid colon CPT copyright 2015 [employer] [place] [employer]. All rights reserved. The codes documented in this report are preliminary and upon chemical process analyst review may be revised to meet current compliance requirements. Shashi Dolanong, 09/07/2015 11:12:25 AM This report has been signed electronically. Number of Addenda: 0 Note Initiated On: 09/07/2015 10:32 AM [facility] 09/07/2015 10:3 2 AM CDT Shashi Fields MD GI PROCEDURE ORDERAB LES [facility] * DEXA BONE DENSITY 2 SITES (06/16/2015 9:06 AM CDT) Anatomical Region Laterality Modality Mammography 06/16/2015 9:07 AM CDT Narrative 06/16/2015 9:57 AM CDT BONE MINERAL DENSITY STUDY INDICATION: ??Postmenopausal ovarian failure - osteoporosis screening. FINDINGS: The average bone mineral density from L1 to L4 is 1.300 g/cm2. T-score is 1. Z-score is 1.7. The average bone mineral density of the total left hip is 0.915 g/cm2. T-score is -0.7. ??Z-score is -0.1. ASSESSMENT: This patient is considered osteopenic according to World Health Organization criteria. Bone density is between 10 and 25% below young normal. Fracture risk is mild. Treatment is advised. WORLD HEALTH ORGANIZATION DEFINITIONS OSTEOPENIA = -1 TO -2.5 SD BELOW T-SCORE. OSTEOPOROSIS = LESS THAN -2.5 SD BELOW T-SCORE Edited by Natty Valdes on 06/16/2015 9:45 AM Procedure Note Shikha Knapp MD - 06/16/2015 BONE MINERAL DENSITY STUDY INDICATION: Postmenopausal ovarian failure - osteoporosis screening. FINDINGS: The average bone mineral density from L1 to L4 is 1.300 g/cm2. T-score is 1. Z-score is 1.7. The average bone mineral density of the total left hip is 0.915 g/cm2. T-score is -0.7. Z-score is -0.1. ASSESSMENT: This patient is considered osteopenic according to World Health Organization criteria. Bone density is between 10 and 25% below young normal. Fracture risk is mild. Treatment is advised. WORLD HEALTH ORGANIZATION DEFINITIONS OSTEOPENIA = -1 TO -2.5 SD BELOW T-SCORE. OSTEOPOROSIS = LESS THAN -2.5 SD BELOW T-SCORE Edited by Natty Valdes on 06/16/2015 9:45 AM Malia Esquivel MD DEXA ORDERABLES from Last 3 Months or Most Recently Relevant to Health Maintenance Advance Directives * Full Code (Latest Code Status on File) Date Activated Date Inactivated Comments 04/22/2014 12:27 AM 04/23/2014 2:50 PM Care Teams Fly Frame Tender Relationship Specialty Start Date End Date Malia Esquivel MD [address] [place] [phone] PCP - General Internal Medicine 06/16/15 Keyona Castro, RN Pmo Analyst 04/22/14
--- OUTSIDE RECORDS SUMMARY | 2024-04-05 15:45 | XMS_ITS | Clinical Summary ---
Author Organization [facility] Address [address] [place] [address] Care Team Providers Care Box Car Checker Name Role Phone Keyona Castro RN Unavailable [phone] Malia Esquivel MD Primary Care Provider [phone] Source Comments [facility],non-owned Affiliates and Associated Physician Practices is amultiple site organization consisting of ambulatory clinics and hospital sitesin [place], [place], [place] and [place]. This disclosure is being madepursuant to the Care Everywhere program and may not contain all information available regarding this patient. Last updated 17.[facility] Allergies No known active allergies Medications * [...] Mass Index 32.92 09/07/2015 10:29 AM CDT Plan of Treatment Health Maintenance Due Date Last Done Comments COLOGUARD (AGES 45-75) - COL ON CA SCREENING 1954 CT COLONOGRAPHY - COLON CA SCREENING 1954 FIT - COLON CA SCREENING 1954 FLEX SIG - COLON CA SCREENING 1954 LIPID TESTING 1954 MAMMOGRAM 1954 HEPATITIS C SCREENING 07/09/1972 DTAP/TDAP/TD VACCINES (1 - Tdap) 1973 ZOSTER VACCINE (1 of 2) 2004 PNEUMOCOCCAL VACCINE 50+ (2 of 2 - PCV) 04/23/2015 04/23/2014 COVID-19 VACCINE ( - 2023-2 5 season) 2023 INFLUENZA VACCINE (#1) 2023 01/02/2016 DEPRESSION SCREENING 03/10/2024 COLON MONITORING 09/06/2025 09/07/2015, 09/07/2015, 09/07/2015 COLONOSCOPY - COLON CA SCREENING 09/06/2025 09/07/2015, 09/07/2015, 09/07/2015 Colorectal Cancer Screening 09/06/2025 Respiratory Syncytial Virus (RSV) Vaccine Pt: or over 60 yrs (1 - 1-dose 75+ series) 2029 BONE DENSITY TESTING Completed 06/16/2015 HEPATITIS B VACCINE Aged Out No longe r eligible based on patient's age to complete this topic HIB VACCINE Aged Out No longer eligi ble based on patient's age to complete this topic HPV VACCINE Aged Out No longer eligi ble based on patient's age to complete this topic MENINGOCOCCAL (Group B) VACCINE Aged Out No longer eligible b ased on patient's age to complete this topic MENINGOCOCCAL VACCINE Aged Out No yoly alessandra eligible based on patient's age to complete this topic Procedures Procedure Name Priority Date/Time Associated Diagnosis [...] neoplasm Providers: ? Shashi Fields (Doctor), Liseth Bishop, COLLEEN, Dory Sanchez, ? Bookmaker'S Clerk Patient Profile: ?? 60F pmh HTN, obesity [...] Procedure Code(s): ? --- Professional --- ? 46361, Colonoscopy, flexible; with removal of tumor(s), polyp(s), or ? other lesion(s) by snare technique ? --- Technical --- ? 56989, Colonoscopy, flexible; with removal of tumor(s), polyp(s), [...] neoplasm of sigmoid colon CPT copyright 2015 [employer]. All rights reserved. The codes documented in this report are preliminary and upon rent collector review may be revised to meet current compliance requirements. Shashi Fields, 09/07/2015 11:12:25 AM This report has been signed electronically. Number of Addenda: 0 Note Initiated On: 09/07/2015 10:32 AM [facility] 09/07/2015 10:3 2 AM CDT Shashi Fields MD GI PROCEDURE ORDERAB LES [facility] * DEXA BONE DENSITY 2 SITES [...] 12:27 AM 04/23/2014 2:50 PM Care Teams Box Car Checker Relationship Specialty Start Date End Date Malia Esquivel MD [address] [place], [place] [id number] PCP - General Internal Medicine 06/16/15 Keyona Castro, RN Grounds Person 04/22/14
--- OUTSIDE RECORDS SUMMARY | 2024-04-05 15:45 | XMS_ITS | Clinical Summary ---
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 Phone No, Physician Primary Care Provider Allergies No known active allergies Medications atorvastatin (LIPITOR) 10 mg tablet Take 1 tablet (10 mg total) by mouth daily 4 Active lisinopriL (PRINIVIL,ZESTR IL) 40 mg tablet Take 1 tablet (40 mg total) by mouth daily Active mupirocin (BACTROBAN) 2 % ointment Apply topically 3 (three) times a day 22 g 4 Active Active Problems No known active problems Social History Tobacco Use Types Packs/Day Years Used Date Smoking Tobacco: Former Cigarettes Q uit: 2002 Smokeless Tobacco: Never Tobacco Cessation:Counseling Given: No Personal Safety Answer Date Recorded Getting School Help Needed Not on file 05/04 Comments Unknown Sex and Gender Information Value Date Recorded Sex Assigned at Not on file 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 Gender Identity Female 08/17/2023 2:33 PM CDT Sexual Orientation Not on file Obstetrics History Last Filed Vital Signs Vital Sign Reading Time Taken Comments Blood Pressure 132/80 08/17/2023 4:52 PM CDT Pulse 98 08/17/2023 4:52 PM CDT Temperature 36.8 ??C (98.2 ??F) 08/17/2023 4:52 PM CD T Respiratory Rate 20 08/17/2023 4:52 PM CDT Oxygen Saturation 99% 08/17/2023 4:52 PM CDT Inhaled Oxygen Concentration - - Weight 77.1 kg (170 lb) 08/17/2023 4:52 PM CDT Height 157.5 cm (5' 2 ) 08/17/2023 4:52 PM CDT Body Mass Index 31.09 08/17/2023 4:52 PM CDT Plan of Treatment Health Maintenance Due Date Last Done Comments Breast Cancer Screening-Mammogram 1954 Colon Cancer Screening-Colonoscopy 1954 Depression Screening 1954 Fall Risk Assessment 1954 Hepatitis C Screening 1954 Osteoporosis Screening-Bone Density Scan 1954 DTaP/Tdap/Td Vaccine (1 - Tdap) 1965 Hepatitis B Screening 1972 Zoster Vaccine (1 of 2) 2004 Well Visit 65+ 07/15/2019 Covid-19 Vaccine (6 - 2023-2 5 season) 2023 12/12/2021, 06/30/2021, 06/30/2021, Additional history exists Influenza Vaccine (#1) 2023 , 12/22/2020, 11/20/2020, Additional history exists Pneumococcal vaccine 65+ (3 of 3 - PPSV23 or PCV20) 09/12/2025 09/12/2020, 04/23/2014, 03/10/2014 Insurance MED[employer]ARE [employer] MED[employer] Care 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
--- OUTSIDE RECORDS SUMMARY | 2024-04-05 15:45 | XMS_ITS | Referral Summary ---
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
--- OUTSIDE RECORDS SUMMARY | 2024-04-05 15:46 | XMS_ITS | Data Portability ---
Author Organization [facility] Address [address] [place] [address] Care Team Providers Care Silk Brusher Name Role Phone PARISH PATEL Primary Care Provider Assessment Encounter Date Assessment Date Assessment LastModified by Organization Details LastModified Time 05/21/2023 05/21/2023 Continue current therapy orthopedic referral blood work all questions answered follow-up 6 months Not available 05/25/2023 15:52:12 11/19/2023 11/19/2023 her blood pressure is well controlled obesity healthy lifestyle care instructions mammogram ordered. Bone density. Colonoscopy. Continue current therapy. Follow up 4 months. [email or web address] Not available 11/22/2023 21:31:37 03/24/2024 03/24/2024 assessments discussed screenings and immunizations ordered were appropriate and patient agreeable. Hypertension dyslipidemia chronic low back pain and low vitamin-D level appear to be stable blood work has been ordered. Healthy lifestyle care instructions to aid in her weight loss journey follow up in 6months. Mammogram is scheduled for later this month her bone density is scheduled for May of this year [email or web address] Not available 03/27/2024 21:05:33 Plan of Treatment Reminders Order Date Submit Date Provider Last Modified By Organization Details Last Modified Time Details Appointments ANY 15 2024 02:00P Israel Patel MD Not available Not available Not available Lab CMP, serum or plasma 2023 024 [facility], [address] [place] [address], [address], [place], [address], 05/22/2023 11:14:46 CBC w/ auto diff 2023 024 [facility], [address], [address], [place], [address], 05/22/2023 11:14:47 lipid panel, serum 2023 024 [facility], [address] [facility], [address], [place], [address], 05/22/2023 11:14:46 lipid panel, serum 2024 025 [facility], [address] [facility], [address], [place], [address], 03/25/2024 08:25:27 CMP, serum or plasma 2024 025 [facility], [address] [place] [address], [address], [place], [address], 03/25/2024 08:25:28 CBC w/ auto diff 2024 025 [facility], [address] [place] [address], [address], [place], [address], 03/25/2024 08:25:30 Referral gastroe nterolo gist referra l - Please call patient to akthy mosley. Thank you 2018 019 ioana Talavera MD, [address] [facility], [address], [place], [address], 12/31/2018 16:05:06 orthope dic surgeon referra l 2023 024 nadia Ramirez MD, [address], [place], [address], 01/16/2024 08:13:11 Procedures colonos copy screeni ng (PROC) 2023 024 [facility], [address], [address], [place], [address], 02/19/2024 18:11:33 Surgeries None recorde d. Imaging MAMMO, screeni ng, digital , bilater al 2023 024 [facility] (Imaging), [address], [place], [address], 04/05/2024 16:41:50 bone density 2023 024 [facility] (Imaging), [address], [place], [address], 02/02/2024 14:32:09 Medication Orders baclofe n 10 mg tablet 2018 019 [facility] #[id number], [address] , [place], [place], [id number], 05/21/2023 12:50:56 lisinop ril 40 mg tablet 2018 019 [facility] #[id number], [address] , [place], [place], [id number], 05/19/2018 10:22:02 calcium 600 mg (as carbona te)-vit camargo D3 20 mcg (800 unit) tablet 2018 019 [facility] #32804, [address], [place], [place], [id number], 05/21/2023 12:51:02 raloxif jakub 60 mg tablet 2018 019 [facility] #[id number], [address], [place], [place], [id number], 05/21/2023 12:51:20 gabapen tin 300 mg capsule 2018 019 [facility] #35921, [address], [place], [place], [id number], 05/19/2018 10:21:57 baclofe n 10 mg tablet 2018 019 [facility] #78453, [address] , [place], [place], [id number], 05/21/2023 12:50:56 lisinop ril 40 mg tablet 2018 019 [facility] #02298, [address] [place], [place], [id number], 11/19/2018 10:14:16 calcium 600 mg (as carbona te)-vit camargo D3 20 mcg (800 unit) tablet 2018 019 [facility] #82093, [address] [place], [place], [id number], 05/21/2023 12:51:02 gabapen tin 300 mg capsule 2018 019 [id number], [address] [place], [place], [id number], 11/19/2018 10:14:34 Patient TargetsNo targets recorded. Patient Instructions Encounter Date Encounter Id Patient Instructions Last Modified By Organization Details Last Modified Time 05/19/2018 [id number] knee arthritis: care instructions [facility] Not available 05/19/2018 10:21:49 hip arthritis: care instructions [facility] Not available 05/19/2018 10:21:49 osteoarthritis: care instructions [facility] Not available 05/19/2018 10:21:49 11/19/2018 [id number] knee arthritis: care instructions [facility] Not available 11/19/2018 10:14:11 hip arthritis: care instructions [facility] Not available 11/19/2018 10:14:11 osteoarthritis: care instructions [facility] Not available 11/19/2018 10:14:11 11/19/2023 [id number] A healthy lifestyle: care instructions Not available 11/19/2023 16:00:33 03/24/2024 [id number] A healthy lifestyle: care instructions [email or web address] Not available 03/24/2024 17:26:38 Medicare Wellnes s Preventive Checklist [email or web address] Not available 03/24/2024 17:26:38 Reason for Referral Risk Control Manager Referral for Screening for malignant neoplasm of colon Please call patient to schedule appt. Thank you Referring Physician: Malia Esquivel, Internal Medicine, Encounter Date: 11/19/2018 Orthopedic Surgeon Referral for Bilateral thumb pain Referring Physician: Parish Patel, Internal Medicine, Encounter Date: 05/21/2023 Results Created Date Observation Date Name Description Value Unit Range Abnormal Flag Note LastModifiedBy Organization Detail LastModifiedTime 05/21/19 24 05/22/2023 LIPID PANEL cholesterol, total 169 mg/dL 100-19 9 Not Available [facility] ([facility]) [address] [place], [address], 05/22/2023 11:14:46 05/21/19 24 05/22/2023 LIPID PANEL triglyceride s 169 mg/dL 0-149 above high normal Not Available [facility] ([facility]) [address] [place], [address], 05/22/2023 11:14:46 05/21/19 24 05/22/2023 LIPID PANEL HDL cholesterol 85 mg/dL >39 Not Available [facility] [address] [place], [address], 05/22/2023 11:14:46 05/21/19 24 05/22/2023 LIPID PANEL VLDL cholesterol marquis 27 mg/dL 5-40 Not Available [facility]) [address] [place], [address], 05/22/2023 11:14:46 05/21/19 24 05/22/2023 LIPID PANEL LDL chol calc ([facility]) 57 mg/dL 0-99 Not Available [facility]) [address], [place], [address], 05/22/2023 11:14:46 05/21/19 24 05/22/2023 COMP. METAB OLIC PANEL (14) glucose 78 mg/dL 70-99 Not Available [facility] ([facility]) [address] [place], [address], 05/22/2023 11:14:46 05/21/19 24 05/22/2023 COMP. METAB OLIC PANEL (14) BUN 17 mg/dL 8-27 Not Available [facility] ([facility]) [address] [place], [address], 05/22/2023 11:14:46 05/21/19 24 05/22/2023 COMP. METAB OLIC PANEL (14) creatinine 1.21 mg/dL 0.57-1 .00 above high normal Not Available [facility] ([facility]) [address], [place], [address], 05/22/2023 11:14:46 05/21/19 24 05/22/2023 COMP. METAB OLIC PANEL (14) eGFR 49 mL/mi n/1.7 3 >59 below low normal Not Available [facility] ([facility]) [address], [place], [address], 05/22/2023 11:14:46 05/21/19 24 05/22/2023 COMP. METAB OLIC PANEL (14) BUN/creatini ne ratio 14 12-28 Not Available [facility] ([facility]) [address] [place], [address], 05/22/2023 11:14:46 05/21/19 24 05/22/2023 COMP. METAB OLIC PANEL (14) sodium 141 mmol/ L 134-14 4 Not Available [facility] ([facility]) [address] [place], [address], 05/22/2023 11:14:46 05/21/19 24 05/22/2023 COMP. METAB OLIC PANEL (14) potassium 4.9 mmol/ L 3.5-5. 2 Not Available [facility] ([facility]) [address], [place], [address], 05/22/2023 11:14:46 05/21/19 24 05/22/2023 COMP. METAB OLIC PANEL (14) chloride 103 mmol/ L 96-106 Not Available [facility] ([facility]) [address], [place], [address], 05/22/2023 11:14:46 05/21/19 24 05/22/2023 COMP. METAB OLIC PANEL (14) carbon dioxide, total 24 mmol/ L 20-29 Not Available [facility] ([facility]) [address], [place], [address], 05/22/2023 11:14:46 05/21/19 24 05/22/2023 COMP. METAB OLIC PANEL (14) calcium 9.8 mg/dL 8.7-10 .3 Not Available [facility] ([facility]) [address], [place], [address], 05/22/2023 11:14:46 05/21/19 24 05/22/2023 COMP. METAB OLIC PANEL (14) protein, total 6.8 g/dL 6.0-8. 5 Not Available [facility] ([facility]) [address], [place], [address], 05/22/2023 11:14:46 05/21/19 24 05/22/2023 COMP. METAB OLIC PANEL (14) albumin 4.3 g/dL 3.9-4. 9 Not Available [facility] ([facility]) [address], [place], [address], 05/22/2023 11:14:46 05/21/19 24 05/22/2023 COMP. METAB OLIC PANEL (14) globulin, total 2.5 g/dL 1.5-4. 5 Not Available [facility] ([facility]) [address] [place], [address], 05/22/2023 11:14:46 05/21/19 24 05/22/2023 COMP. METAB OLIC PANEL (14) A/G ratio 1.7 1.2-2. 2 Not Available [facility] ([facility]) [address] [place], [address], 05/22/2023 11:14:46 05/21/19 24 05/22/2023 COMP. METAB OLIC PANEL (14) bilirubin, total 0.3 mg/dL 0.0-1. 2 Not Available [facility] ([facility]) [address] [place], [address], 05/22/2023 11:14:46 05/21/19 24 05/22/2023 COMP. METAB OLIC PANEL (14) alkaline phosphatase 88 IU/L 44-121 Not Available [facility] [address] [place], [address], 05/22/2023 11:14:46 05/21/19 24 05/22/2023 COMP. METAB OLIC PANEL (14) AST (SGOT) 24 IU/L 0-40 Not Available [facility] ([facility]) [address] [place], [address], 05/22/2023 11:14:46 05/21/19 24 05/22/2023 COMP. METAB OLIC PANEL (14) ALT (SGPT) 14 IU/L 0-32 Not Available [facility] ([facility]) [address] [place], [address], 05/22/2023 11:14:46 05/21/19 24 05/22/2023 CBC WITH DIFFE RENTI AL/PL ATELE T WBC 6.2 x10e3 /uL 3.4-10 .8 Not Available [facility] ([facility]) [address], [place], [address], 05/22/2023 11:14:47 05/21/19 24 05/22/2023 CBC WITH DIFFE RENTI AL/PL ATELE T RBC 4.90 x10e6 /uL 3.77-5 .28 Not Available [facility] ([facility]) [address], [place], [address], 05/22/2023 11:14:47 05/21/19 24 05/22/2023 CBC WITH DIFFE RENTI AL/PL ATELE T hemoglobin 14.4 g/dL 11.1-1 5.9 Not Available [facility] ([facility]) [address], [place], [address], 05/22/2023 11:14:47 05/21/19 24 05/22/2023 CBC WITH DIFFE RENTI AL/PL ATELE T hematocrit 43.2 % 34.0-4 6.6 Not Available [facility] ([facility]) [address], [place], [address], 05/22/2023 11:14:47 05/21/19 24 05/22/2023 CBC WITH DIFFE RENTI AL/PL ATELE T MCV 88 fL 79-97 Not Available [facility] ([facility]) [address] [place], [address], 05/22/2023 11:14:47 05/21/19 24 05/22/2023 CBC WITH DIFFE RENTI AL/PL ATELE T MCH 29.4 pg 26.6-3 3.0 Not Available [facility] ([facility]) [address], [place], [address], 05/22/2023 11:14:47 05/21/19 24 05/22/2023 CBC WITH DIFFE RENTI AL/PL ATELE T MCHC 33.3 g/dL 31.5-3 5.7 Not Available [facility] ([facility]) [address], [place], [address], 05/22/2023 11:14:47 05/21/19 24 05/22/2023 CBC WITH DIFFE RENTI AL/PL ATELE T RDW 13.2 % 11.7-1 5.4 Not Available [facility] ([facility]) [address], [place], [address], 05/22/2023 11:14:47 05/21/19 24 05/22/2023 CBC WITH DIFFE RENTI AL/PL ATELE T platelets 211 x10e3 /uL 150-45 0 Not Available [facility] ([facility]) [address], [place], [address], 05/22/2023 11:14:47 05/21/19 24 05/22/2023 CBC WITH DIFFE RENTI AL/PL ATELE T neutrophils 54 % notest ab. Not Available [facility] ([facility]) [address], [place], [address], 05/22/2023 11:14:47 05/21/19 24 05/22/2023 CBC WITH DIFFE RENTI AL/PL ATELE T lymphs 31 % notest ab. Not Available [facility] ([facility]) [address], [place], [address], 05/22/2023 11:14:47 05/21/19 24 05/22/2023 CBC WITH DIFFE RENTI AL/PL ATELE T monocytes 12 % notest ab. Not Available [facility] ([facility]) [address] [place], [address], 05/22/2023 11:14:47 05/21/19 24 05/22/2023 CBC WITH DIFFE RENTI AL/PL ATELE T eos 2 % notest ab. Not Available [facility] ([facility]) [address], [place], [address], 05/22/2023 11:14:47 05/21/19 24 05/22/2023 CBC WITH DIFFE RENTI AL/PL ATELE T basos 1 % notest ab. Not Available [facility] ([facility]) [address], [place], [address], 05/22/2023 11:14:47 05/21/19 24 05/22/2023 CBC WITH DIFFE RENTI AL/PL ATELE T neutrophils (absolute) 3.4 x10e3 /uL 1.4-7. 0 Not Available [facility] ([facility]) [address], [place], [address], 05/22/2023 11:14:47 05/21/19 24 05/22/2023 CBC WITH DIFFE RENTI AL/PL ATELE T lymphs (absolute) 1.9 x10e3 /uL 0.7-3. 1 Not Available [facility] ([facility]) [address], [place], [address], 05/22/2023 11:14:47 05/21/19 24 05/22/2023 CBC WITH DIFFE RENTI AL/PL ATELE T monocytes(ab solute) 0.7 x10e3 /uL 0.1-0. 9 Not Available [facility] ([facility]) [address], [place], [address], 05/22/2023 11:14:47 05/21/19 24 05/22/2023 CBC WITH DIFFE RENTI AL/PL ATELE T eos (absolute) 0.1 x10e3 /uL 0.0-0. 4 Not Available [facility] ([facility]) [address], [place], [address], 05/22/2023 11:14:47 05/21/19 24 05/22/2023 CBC WITH DIFFE RENTI AL/PL ATELE T baso (absolute) 0.0 x10e3 /uL 0.0-0. 2 Not Available [facility] ([facility]) [address], [place], [address], 05/22/2023 11:14:47 05/21/19 24 05/22/2023 CBC WITH DIFFE RENTI AL/PL ATELE T immature granulocytes 0 % notest ab. Not Available [facility] ([facility]) [address], [place], [address], 05/22/2023 11:14:47 05/21/19 24 05/22/2023 CBC WITH DIFFE RENTI AL/PL ATELE T immature grans (abs) 0.0 x10e3 /uL 0.0-0. 1 Not Available [facility] ([facility]) [address], [place], [address], 05/22/2023 11:14:47 03/24/19 25 03/25/2024 LIPID PANEL cholesterol, total 186 mg/dL 100-19 9 Not Available [facility] ([facility]) [address], [place], [address], 03/25/2024 08:25:27 03/24/19 25 03/25/2024 LIPID PANEL triglyceride s 130 mg/dL 0-149 Not Available [facility] ([facility]) [address], [place], [address], 03/25/2024 08:25:27 03/24/19 25 03/25/2024 LIPID PANEL HDL cholesterol 103 mg/dL >39 Not Available [facility] ([facility]) [address], [place], [address], 03/25/2024 08:25:27 03/24/19 25 03/25/2024 LIPID PANEL VLDL cholesterol marquis 21 mg/dL 5-40 Not Available [facility] ([facility]) [address], [place], [address], 03/25/2024 08:25:27 03/24/19 25 03/25/2024 LIPID PANEL LDL chol calc ([facility]) 62 mg/dL 0-99 Not Available [facility]) [address] [place], [address], 03/25/2024 08:25:27 03/24/19 25 03/25/2024 COMP. METAB OLIC PANEL (14) glucose 68 mg/dL 70-99 below low normal Not Available [facility] ([facility]) [address] [place], [address], 03/25/2024 08:25:28 03/24/19 25 03/25/2024 COMP. METAB OLIC PANEL (14) BUN 13 mg/dL 8-27 Not Available [facility] ([facility]) [address] [place], [address], 03/25/2024 08:25:28 03/24/19 25 03/25/2024 COMP. METAB OLIC PANEL (14) creatinine 1.03 mg/dL 0.57-1 .00 above high normal Not Available [facility] ([facility]) [address] [place], [address], 03/25/2024 08:25:28 03/24/19 25 03/25/2024 COMP. METAB OLIC PANEL (14) eGFR 59 mL/mi n/1.7 3 >59 below low normal Not Available [facility] ([facility]) [address] [place], [address], 03/25/2024 08:25:28 03/24/19 25 03/25/2024 COMP. METAB OLIC PANEL (14) BUN/creatini ne ratio 13 12-28 Not Available [facility] ([facility]) [address] [place], [address], 03/25/2024 08:25:28 03/24/19 25 03/25/2024 COMP. METAB OLIC PANEL (14) sodium 144 mmol/ L 134-14 4 Not Available [facility] ([facility]) [address] [place], [address], 03/25/2024 08:25:28 03/24/19 25 03/25/2024 COMP. METAB OLIC PANEL (14) potassium 4.6 mmol/ L 3.5-5. 2 Not Available [facility] ([facility]) [address] [place], [address], 03/25/2024 08:25:28 03/24/19 25 03/25/2024 COMP. METAB OLIC PANEL (14) chloride 105 mmol/ L 96-106 Not Available [facility] ([facility]) [address] [place], [address], 03/25/2024 08:25:28 03/24/19 25 03/25/2024 COMP. METAB OLIC PANEL (14) carbon dioxide, total 26 mmol/ L 20-29 Not Available [facility] ([facility]) [address] [place], [address], 03/25/2024 08:25:28 03/24/19 25 03/25/2024 COMP. METAB OLIC PANEL (14) calcium 9.6 mg/dL 8.7-10 .3 Not Available [facility] ([facility]) [address] [place], [address], 03/25/2024 08:25:28 03/24/19 25 03/25/2024 COMP. METAB OLIC PANEL (14) protein, total 6.7 g/dL 6.0-8. 5 Not Available [facility] ([facility]) [address] [place], [address], 03/25/2024 08:25:28 03/24/19 25 03/25/2024 COMP. METAB OLIC PANEL (14) albumin 4.5 g/dL 3.9-4. 9 Not Available [facility] ([facility]) [address], [place], [address], 03/25/2024 08:25:28 03/24/19 25 03/25/2024 COMP. METAB OLIC PANEL (14) globulin, total 2.2 g/dL 1.5-4. 5 Not Available [facility] ([facility]) [address], [place], [address], 03/25/2024 08:25:28 03/24/19 25 03/25/2024 COMP. METAB OLIC PANEL (14) bilirubin, total 0.3 mg/dL 0.0-1. 2 Not Available [facility] ([facility]) [address], [place], [address], 03/25/2024 08:25:28 03/24/19 25 03/25/2024 COMP. METAB OLIC PANEL (14) alkaline phosphatase 77 IU/L 44-121 Not Available [facility] ([facility]) [address], [place], [address], 03/25/2024 08:25:28 03/24/19 25 03/25/2024 COMP. METAB OLIC PANEL (14) AST (SGOT) 19 IU/L 0-40 Not Available [facility] ([facility]) [address] [place], [address], 03/25/2024 08:25:28 03/24/19 25 03/25/2024 COMP. METAB OLIC PANEL (14) ALT (SGPT) 13 IU/L 0-32 Not Available [facility] ([facility]) [address] [place], [address], 03/25/2024 08:25:28 03/24/19 25 03/25/2024 CBC WITH DIFFE RENTI AL/PL ATELE T WBC 7.3 x10e3 /uL 3.4-10 .8 Not Available [facility] ([facility]) [address] [place], [address], 03/25/2024 08:25:30 03/24/1903/25/2024 CBC WITH DIFFE RENTI AL/PL ATELE T RBC 4.88 x10e6 /uL 3.77-5 .28 Not Available [facility] ([facility]) [address], [place], [address], 03/25/2024 08:25:30 03/24/1903/25/2024 CBC WITH DIFFE RENTI AL/PL ATELE T hemoglobin 14.3 g/dL 11.1-1 5.9 Not Available [facility] ([facility]) [address] [place], [address], 03/25/2024 08:25:30 03/24/1903/25/2024 CBC WITH DIFFE RENTI AL/PL ATELE T hematocrit 42.9 % 34.0-4 6.6 Not Available [facility] ([facility]) [address] [place], [address], 03/25/2024 08:25:30 03/24/1903/25/2024 CBC WITH DIFFE RENTI AL/PL ATELE T MCV 88 fL 79-97 Not Available [facility] ([facility]) [address] [place], [address], 03/25/2024 08:25:30 03/24/1903/25/2024 CBC WITH DIFFE RENTI AL/PL ATELE T MCH 29.3 pg 26.6-3 3.0 Not Available [facility] ([facility]) [address] [place], [address], 03/25/2024 08:25:30 03/24/1903/25/2024 CBC WITH DIFFE RENTI AL/PL ATELE T MCHC 33.3 g/dL 31.5-3 5.7 Not Available [facility] ([facility]) [address] [place], [address], 03/25/2024 08:25:30 03/24/19 25 03/25/2024 CBC WITH DIFFE RENTI AL/PL ATELE T RDW 12.9 % 11.7-1 5.4 Not Available [facility] ([facility]) [address], [place], [address], 03/25/2024 08:25:30 03/24/1903/25/2024 CBC WITH DIFFE RENTI AL/PL ATELE T platelets 251 x10e3 /uL 150-45 0 Not Available [facility] ([facility]) [address], [place], [address], 03/25/2024 08:25:30 03/24/19 25 03/25/2024 CBC WITH DIFFE RENTI AL/PL ATELE T neutrophils 49 % notest ab. Not Available [facility] ([facility]) [address], [place], [address], 03/25/2024 08:25:30 03/24/19 25 03/25/2024 CBC WITH DIFFE RENTI AL/PL ATELE T lymphs 37 % notest ab. Not Available [facility] ([facility]) [address], [place], [address], 03/25/2024 08:25:30 03/24/1903/25/2024 CBC WITH DIFFE RENTI AL/PL ATELE T monocytes 10 % notest ab. Not Available [facility] ([facility]) [address], [place], [address], 03/25/2024 08:25:30 03/24/1903/25/2024 CBC WITH DIFFE RENTI AL/PL ATELE T eos 3 % notest ab. Not Available [facility] ([facility]) [address], [place], [address], 03/25/2024 08:25:30 03/24/19 25 03/25/2024 CBC WITH DIFFE RENTI AL/PL ATELE T basos 1 % notest ab. Not Available [facility] ([facility]) [address], [place], [address], 03/25/2024 08:25:30 03/24/19 25 03/25/2024 CBC WITH DIFFE RENTI AL/PL ATELE T neutrophils (absolute) 3.6 x10e3 /uL 1.4-7. 0 Not Available [facility] ([facility]) [address] [place], [address], 03/25/2024 08:25:30 03/24/1903/25/2024 CBC WITH DIFFE RENTI AL/PL ATELE T lymphs (absolute) 2.7 x10e3 /uL 0.7-3. 1 Not Available [facility] ([facility]) [address] [place], [address], 03/25/2024 08:25:30 03/24/1903/25/2024 CBC WITH DIFFE RENTI AL/PL ATELE T monocytes(ab solute) 0.8 x10e3 /uL 0.1-0. 9 Not Available [facility] ([facility]) [address] [place], [address], 03/25/2024 08:25:30 03/24/1903/25/2024 CBC WITH DIFFE RENTI AL/PL ATELE T eos (absolute) 0.2 x10e3 /uL 0.0-0. 4 Not Available [facility] ([facility]) [address] [place], [address], 03/25/2024 08:25:30 03/24/1903/25/2024 CBC WITH DIFFE RENTI AL/PL ATELE T baso (absolute) 0.1 x10e3 /uL 0.0-0. 2 Not Available [facility] ([facility]) [address] [place], [address], 03/25/2024 08:25:30 03/24/19 25 03/25/2024 CBC WITH DIFFE RENTI AL/PL ATELE T immature granulocytes 0 % notest ab. Not Available [facility] ([facility]) [address], [place], [address], 03/25/2024 08:25:30 03/24/19 25 03/25/2024 CBC WITH DIFFE RENTI AL/PL ATELE T immature grans (abs) 0.0 x10e3 /uL 0.0-0. 1 Not Available [facility] ([facility]) [address], [place], [address], 03/25/2024 08:25:30 08/21/19 20 08/18/2019 MRI, lumba r spine , w/o contr ast No observ ation record ed. [facility] (Imaging) [address] [place], [address], 08/25/2019 11:35:41 08/21/19 20 08/18/2019 MRI, lumba r spine , w/o contr ast No observ ation record ed. [facility] ([facility]) [address] [place], [address], 08/25/2019 11:35:14 08/05/19 21 08/04/2020 XR, shoul mary No observ ation record ed. [facility] ([facility]) [address] [place], [address], 08/04/2020 17:23:47 04/05/19 25 04/05/2024 MAMMO , scree manisha, digit al, bilat eral No observ ation record ed. [place] [id number] [facility] [address], [place], [address], 04/05/2024 16:41:50 Result Notes None recorded. Problems Name Problem SNOMED Code Status Onset Date Resolution Date Notes Provider Name and Address Organization Details Recorded Time Essential hypertensio n 74846060 Active 2023 Parish aPtel MD Attn: Umbertotadeo ma,[address] [place], [address], [place] [facility] 5 21:02:37 Bilateral thumb pain 1002353317982 9102 Active 2023 Darlene Benton [place] null, [place] [facility] 4 12:32:34 Hyperlipide praveen 36939691 Active 2023 Parish Patel MD Attn: Dionne francesca,[address] [place], [address], [place] [facility] 5 21:02:37 Chronic low back pain 358815613 Active 2024 Parish Patel MD Attn: Dionne ma,[address] [place], [address], [place] [facility] 5 21:02:08 Hypertensiv e disorder 20191087 Active Malia Esquivel MD Attn: Dionne ma,[address] [place], [address], [place] [facility] 6 15:27:02 Osteoarthri tis of hip 173259357 Active Malia Esquivel MD Attn: Dionne ma,[address] [place], [address], [place] [facility] 6 15:27:02 Osteoarthri tis of knee 256082325 Active Marilynn Simon RN [place], [place] [facility] 6 13:30:58 Osteoarthri tis of foot joint 865028544 Active Malia Esquivel MD Attn: Dionne ma,[address] [place], [address], [place] [facility] 6 15:27:02 Menopausal and postmenopau keysha disorders 792521340 Active Ryland Perrin [place] [facility] 6 11:01:28 Menopausal syndrome 224293279 Active Ryland [place]ydin [place] [facility] 6 11:01:28 Osteopenia 152141573 Active Malia Esquivel MD Attn: Dionne ma,[address] [facility], [place], [address], [place] [facility] 6 15:27:02 Vitamin D deficiency 98159175 Active Parish Patel MD Attn: Dionne g,[address] [facility], [place], [address], [place] [facility] 5 21:02:37 Abscess of breast 41581242 Active Malia Esquivel MD Attn: Dionne g,[address] [facility], [place], [address], [facility] - [facility] 6 15:55:15 Problem Notes None recorded. Procedures Surgical History Date Name Laterality Status Provider Name and Address Organization Details Recorded Time 10/06/19 16 I&D completed Lucretia Weston PA-C Attn: Accounting,[address] [facility], [place], [address], [facility] - [facility] 10/06/2015 09:33:39 09/08/19 15 Date of Last Pap Smear completed Mel Chavez [place] - [facility] 07/10/2015 10:30:06 07/09/19 15 Screening pap smear by phys completed Dario Austin [place] [facility] 06/13/2015 14:35:35 Joint Replacement completed Chay Ramirez [place] [facility] 05/21/2023 12:51:54 Tonsillectomy completed Dario Austin [place] 06/13/2015 14:35:35 Imaging Results Imaging Date Name Status LastModified by [facility] Details LastModified Time 08/18/2019 MRI, lumbar spine, w/o contrast completed [facility] (Imaging) [address] [place], [address], 08/25/2019 11:35:41 08/18/2019 MRI, lumbar spine, w/o contrast completed [facility] (Imaging) [address] [place], [address], 08/25/2019 11:35:14 08/04/2020 XR, shoulder completed [facility] ([facility] Scheduling) [address], [place], [address], 08/04/2020 17:23:47 04/05/2024 MAMMO, screening, digital, bilateral active [facility] [address] [facility] [address], [place], [address], 04/05/2024 16:41:50 Procedure Notes None recorded. Medical Equipment None Reported. Allergies No known drug allergies Medications Name Sig Start Date Stop Date Status Note LastModified by Organization Details LastModified Time methocarbam ol 500 mg tablet Take 2 tablets 3 times a day by oral route with meals for 30 days. 11/18 completed Not Available Not Available Not Available doxycycline hyclate 100 mg capsule 11/18 completed Not Available Not Available Not Available atorvastati n 10 mg tablet TAKE 1 TABLET BY MOUTH EVERY DAY 2024 active Not Available Not Available Not Avai lable meloxicam 15 mg tablet TAKE 1 TABLET BY MOUTH EVERY DAY 2023 active Not Available Not Available Not Avai lable lisinopril 20 mg tablet Take 1 tablet every day by oral route. 11/01 completed Not Available Not Available Not Available clindamycin HCl 150 mg capsule Take 2 capsules 3 times a day by oral route after meals for 10 days. 04/25 completed Not Available Not Available Not Available sulfamethox azole 800 mg-trimetho prim 160 mg tablet Take 1 tablet every 12 hours by oral route for 10 days. 11/18 completed Not Available Not Available Not Available L-Glutamine 500 mg capsule Take 1 capsule 3 times a day by oral route with meals for 90 days. 05/19 completed Not Available Not Available Not Available baclofen 10 mg tablet TAKE 1 TABLET BY MOUTH THREE TIMES DAILY AFTER MEALS 05/20 completed Not Available Not Available Not Available cephalexin 500 mg capsule 11/19 completed Not Available Not Available Not Available gabapentin 300 mg capsule TAKE 1 CAPSULE BY MOUTH THREE TIMES DAILY 2024 active Not Available Not Available Not Avai lable raloxifene 60 mg tablet TAKE 1 TABLET BY MOUTH EVERY DAY 05/20 completed Not Available Not Available Not Available mupirocin 2 % topical ointment APPLY TOPICALLY TO THE AFFECTED AREA THREE TIMES DAILY active Not Available Not Available No t Available lisinopril 40 mg tablet TAKE 1 TABLET BY MOUTH EVERY DAY active Not Available Not Available No t Available amoxicillin 500 mg-potassiu m clavulanate 125 mg tablet Take 1 tablet every 12 hours by oral route after meals for 10 days. 05/19 completed Not Available Not Available Not Available Premarin 0.625 mg/gram vaginal cream Insert 1 g twice a week by vaginal route. active Not Available Not Available No t Available Calcium 600 with Vitamin D3 600 mg-10 mcg (400 unit) chewable tablet Take 2 tablets every day by oral route around the clock for 30 days. 05/19 completed Not Available Not Available Not Available GaviLyte-G 236 gram-22.74 gram-6.74 gram-5.86 gram oral solution 11/18 completed Not Available Not Available Not Available sodium,pota ssium,mag sulfates 17.5 gram-3.13 gram-1.6 gram oral soln MIX AND DRINK DIRECTED PER THE WRITTEN INSTRUCTI ONS THAT WERE MAILED TO YOU. active Not Available Not Available No t Available calcium 600 mg (as carbonate)- vitamin D3 20 mcg (800 unit) tablet Take 1 tablet twice a day by oral route as directed for 90 days. 05/20 completed Not Available Not Available Not Available Virtussin AC 10 mg-100 mg/5 mL oral liquid TAKE 10 ML BY MOUTH EVERY 6 HOURS NEEDED FOR 6 DAYS 05/19 completed Not Available Not Available Not Available Vitals Date Recorded Body height Provider Name an d Address Organization Details Last Updated DateTime 05/19/2018 157.48 cm Dario Austin [place] [facility] 2018 10:00:01 Date Recorded Body mass index (BMI) Body weight Provider Name and Address Organization Details Last Updated DateTime 05/19/2018 35 kg/m2 18396.57 g Dario Austin [place] [facility] 05/19/2018 10:07:02 Date Recorded Body temperature Provider Name a nd Address Organization Details Last Updated DateTime 05/19/2018 98.1 [degF] Dariogerson Austin MA [facility] 05/19/2018 10:09:49 Date Recorded Oxygen saturation Oxygen saturation in Arterial blood by Pulse oximetry Provider Name and Address Organization Details Last Updated DateTime 05/19/2018 99 % 99 % Dariogerson Austin MA [facility] 05/19/2018 10:10:21 Date Recorded Heart rate Provider Name an d Address Organization Details Last Updated DateTime 05/19/2018 77 /min Dariogerson Austin MA [facility] 2018 10:10:23 Date Recorded Body height Provider Name an d Address Organization Details Last Updated DateTime 11/19/2018 157.48 cm Dario Austin MA [facility] 2018 09:56:34 Date Recorded Body mass index (BMI) Body weight Provider Name and Address Organization Details Last Updated DateTime 11/19/2018 35.4 kg/m2 72442.76 g Dario Norman ETHAN [facility] 11/19/2018 10:04:27 Date Recorded Body temperature Provider Name a nd Address Organization Details Last Updated DateTime 11/19/2018 98.1 [degF] Dariogerson Austin ETHAN [facility] 11/19/2018 10:05:57 Date Recorded Oxygen saturation Oxygen saturation in Arterial blood by Pulse oximetry Provider Name and Address Organization Details Last Updated DateTime 11/19/2018 97 % 97 % Dario Austin MA [facility] 11/19/2018 10:06:07 Date Recorded Heart rate Provider Name an d Address Organization Details Last Updated DateTime 11/19/2018 69 /min Dario Austin MA [facility] 2018 10:06:11 Date Recorded Heart rate Provider Name an d Address Organization Details Last Updated DateTime 05/21/2023 76 /min Chay Ramirez MA [facility] 05/08 12:50:33 Date Recorded Oxygen saturation Oxygen saturation in Arterial blood by Pulse oximetry Provider Name and Address Organization Details Last Updated DateTime 05/21/2023 97 % 97 % Chay Ramirez MA [facility] 05/21/2023 12:50:40 Date Recorded Body weight Provider Name an d Address Organization Details Last Updated DateTime 11/19/2023 98248.27 g Luz VictorinaETHAN nieto [facility] 14:14:00 Date Recorded Body mass index (BMI) Body height Provider Name and Address Organization Details Last Updated DateTime 11/19/2023 31 kg/m2 157.48 cm Luz VictorinaETHAN [facility] 01/2024 14:14:03 Date Recorded Heart rate Provider Name an d Address Organization Details Last Updated DateTime 11/19/2023 79 /min Luz Victorina ETHAN [facility] 14:18:32 Date Recorded Oxygen saturation Oxygen saturation in Arterial blood by Pulse oximetry Provider Name and Address Organization Details Last Updated DateTime 11/19/2023 98 % 98 % Luz Prajapati ETHAN [facility] 11/19/2023 14:18:34 Date Recorded Body height Provider Name an d Address Organization Details Last Updated DateTime 03/24/2024 157.48 cm Luz Prajapati ETH[facility] 15:05:23 Date Recorded Body mass index (BMI) Body weight Provider Name and Address Organization Details Last Updated DateTime 03/24/2024 31.8 kg/m2 45364.43 g Luz Prajapati ETHAN [facility] 0 03/24/2024 15:07:38 Date Recorded Heart rate Provider Name an d Address Organization Details Last Updated DateTime 03/24/2024 65 /min Luz Prajapati ETH[facility] 15:10:06 Date Recorded Oxygen saturation Oxygen saturation in Arterial blood by Pulse oximetry Provider Name and Address Organization Details Last Updated DateTime 03/24/2024 99 % 99 % Luz Prajapati ETHAN [facility] 03/24/2024 15:10:08 Date Recorded Pain severity - 0-10 verbal numeric rating [Score] - Reported Provider Name and Address Organization Details Last Updated DateTime 03/24/2024 0 Sue Barron [facility] 03/24/2024 15:16:35 Date Recorded Systolic blood pressure Diastolic blood pressure Provider Name and Address Organization Details Last Updated DateTime 05/19/2018 110 mm[Hg] 66 mm[Hg] Dario Austin MA [facility] 05/19/2018 10:11:58 Date Recorded Systolic blood pressure Diastolic blood pressure Provider Name and Address Organization Details Last Updated DateTime 11/19/2018 128 mm[Hg] 70 mm[Hg] Dario ETHAN Austin [facility] 11/19/2018 10:08:01 Date Recorded Systolic blood pressure Diastolic blood pressure Provider Name and Address Organization Details Last Updated DateTime 05/21/2023 118 mm[Hg] 77 mm[Hg] Chay Ramirez MA [facility] 05/21/2023 12:50:27 Date Recorded Systolic blood pressure Diastolic blood pressure Provider Name and Address Organization Details Last Updated DateTime 11/19/2023 118 mm[Hg] 64 mm[Hg] Luz Prajapati MA [facility] 11/19/2023 14:18:39 Date Recorded Systolic blood pressure Diastolic blood pressure Provider Name and Address Organization Details Last Updated DateTime 03/24/2024 120 mm[Hg] 64 mm[Hg] Luz Prajapati MA [facility] 03/24/2024 15:11:35 Social History Question Answer Notes LastModified by Organizat ion Details LastModified Time Tobacco Smoking Status Former Smoker quit around 1999 Sue sunshine [facility] 03/24/2024 15:17:55 Do You Have An Advance Directive? No [email or web address] Information not available 07/10/2015 What Is Your Level Of Alcohol Consumption? None [email or web address] Information not available 06/13/2015 Are You Blind Or Do You Have Difficulty Seeing? No Information not available 11/19/2023 Is Blood Transfusion Acceptable In An Emergency? Yes Information not available 07/10/2015 What Is Your Level Of Caffeine Consumption? None Information not available 03/24/2024 How Much Tobacco Do You Chew? None [email or web address] Information not available 07/10/2015 In The 14 Days Before Symptom Onset, Have You Had Close Contact With A Laboratory-confi rmed COVID-19 While That Case Was Ill? No Information not available 11/19/2023 In The 14 Days Before Symptom Onset, Have You Had Close Contact With A Person Who Is Under Investigation For COVID-19 While That Person Was Ill? No Information not available 11/19/2023 Have You Been To An Area Known To Be High Risk For COVID-19? No Information not available 11/19/2023 Are You Currently Employed? Yes [email or web address] Information not available 07/10/2015 Are You Deaf Or Do You Have Serious Difficulty Hearing? No Information not available 11/19/2023 What Type Of Diet Are You Following? REGULAR [email or web address] Information not available 07/10/2015 Which Illicit Or Recreational Drugs Have You Used? Denies [email or web address] Information not available 07/10/2015 Education 2 Year College [email or web address] Information not available 07/10/2015 What Is The Highest Grade Or Level Of School You Have Completed Or The Highest Degree You Have Received? [id number] Information not available 03/24/2024 What Is Your Occupation? [employer] Information not available 03/24/2024 Are There Any Guns Present In Your Home? No [email or web address] Information not available 07/10/2015 Hard Of Hearing Or Deaf In One Or Both Ears? No [email or web address] Information not available 07/10/2015 Legally Blind In One Or Both Eyes? No [email or web address] Information not available 07/10/2015 Live Alone Or With Others? With Others [email or web address] Information not available 07/10/2015 In The Past 7 Days, How Many Days Did You Exercise? 0 Active Lifestyle Information not available 03/24/2024 In The Past 7 Days, How Much Pain Have You Haven? None Information not available 03/24/2024 In General, Would You Say You Health Is: Excellent Information not available 03/24/2024 How Would You Describe The Condition Of Your Mouth And Teeth- Including False Teeth Or Dentures? Excellent Information not available 03/24/2024 Each Night, How Many Hours Of Sleep Do You Get? 6 Information not available 03/24/2024 Has Anyone Ever Told You That You Snore? No Information not available 03/24/2024 In The Past 7 Days, How Often Have You Haven Sleepy In The Daytime? Never Information not available 03/24/2024 # Alcohol Drinks Per Week 0 Information not available 03/24/2024 Marital Status [email or web address] Informatio n not available 07/10/2015 What Was The Date Of Your Most Recent Tobacco Screening? 03/24/2024 Information not available 03/24/2024 How Many Children Do You Have? 2 [email or web address] Information not available 07/10/2015 Performs Monthly Self-breast Exam? Yes [email or web address] Information not available 07/10/2015 Do You Use Protection During Sex? No [email or web address] Information not available 07/10/2015 What Is Your Relationship Status? [email or web address] Information not available 07/10/2015 Do You Use Your Seat Belt Or Car Seat Routinely? Yes Information not available 11/19/2023 Seat Belts Used Routinely Yes Information not available 07/10/2015 Are You Sexually Active? Yes [email or web address] Information not available 07/10/2015 Smoke Alarm In Home Yes [email or web address] Information not available 07/10/2015 Do You Have Smoke And Carbon Monoxide Detectors In Your Home? Yes Information not available 11/19/2023 How Much Tobacco Do You Smoke? No Information not available 03/24/2024 General Stress Level Medium [email or web address] Information not available 07/10/2015 Do You Feel Stressed (tense, Restless, Nervous, Or Anxious, Or Unable To Sleep At Night)? [id number] Information not available 03/24/2024 Do You Use Any Illicit Or Recreational Drugs? No Information not available 11/19/2023 Do You Use Sunscreen Routinely? No Information not available 03/24/2024 Has Tobacco Cessation Counseling Been Provided? No Information not available 11/19/2023 How Many Years Have You Smoked Tobacco? 25 [email or web address] Information not available 07/10/2015 Do You Or Have You Ever Used Any Other Forms Of Tobacco Or Nicotine? No Information not available 11/19/2023 Sex: Female Functional Status Question Answer Note LastModified by Organizat ion Details LastModified Time Are you able to care for yourself? Yes Information not available 11/19/2023 What is your exercise level? Occasional active at work - walking 3 miles daily Information not available 03/24/2024 Mental Status None recorded. Family History Relationship Description Onset Age of this Age Resolved Age Notes LastModified by Organization Details LastModified Time Mother Diabetes mellitus [email or web address] Not available 2015 09:10:08 Mother Hypertensive disorder [email or web address] Not available 2015 09:10:08 Father Hypertensive disorder [email or web address] Not available 2015 09:10:08 Notes:No new family history, me/rma Medical History Condition Response Coronary Artery Disease N Kidney Cyst N Blood Diseases N Hyperthyroidism N Blood disorders N Blood Transfusion N MRSA N Emphysema N Depression N COPD N Blood Clots N Pneumonia N Premature N Peripheral Arterial Disease N Edema N TIA N Headaches/Migraines N Anxiety Disorder N Obesity N Polyps N Infertility N Acid Reflux (GERD) N Hematuria N Stroke N Neck Injury N Polio N Hospital Admission other than N Neurologic Disorder N Other Sleep Disorders N Rheumatoid Arthritis N Fibromyalgia N Abdominal Aortic Aneurysm Repair N Kidney Disease N Heart Conditions N Heart Disease/Heart Problems N Hospitalizations N Brain Tumors N Acne N Skin Problems N Eating Disorder N Meningitis N Constipation N Tuberculosis N Cerebral Palsy N Myocardial Infarction N Asthma N Substance Abuse N Peripheral Vascular Disease N Vertigo N Sleep Disorder N Cirrhosis N Pulmonary Embolism N Chicken Pox Y Hematologic Disease N Flomax Use Past or Present N Anxiety/Depression N Thyroid Disease N Colon Cancer N Lung Disease N Glaucoma N Developmental or Behavioral Disorders N Bipolar N Pacemaker N Diverticulitis/Diverticulosis N Orthopedic Problems N Anesthesia Complications N Orthotics N Head Injury/Concussion N Congenital Anomalies N Lord Bite N Chronic Kidney Disease N Endometriosis N Liver Disease N Schizophrenia N Dialysis N Speech Delay N Chronic Obstructive Pulmonary Disease N Parkinson's Disease N Thyroid Problems N GI Problems N Developmental Delay N Anemia N Multiple Sclerosis N Immune System Disorder N Colon Polyps N Heart Attack ([place]) N Diabetes N Cardiomyopathy N Blood Transfusions N Heart Problems/Murmur N Eye Trauma N Congestive Heart Failure (CHF) N Valvular Heart Disease N Hyperlipidemia N Double Vision N Abuse/Domestic Violence N Hepatitis B N Lupus N Epilepsy/Seizures N Reflux/GERD N Aneurysm N Heart Disease N Bronchitis N Pre-Eclampsia N Hypertension N Heart Failure N Other N Gout N High Blood Pressure Y Atrial Fibrillation N Kidney Stones N Head Trauma/Injury N Congenital Heart Disease N Spine Problems N Gastrointestinal Disease N Lung Mass N Sinusitis N Obstructive Sleep Apnea N Muscle, Joint, or Bone Problems Y Autoimmune disease N Vision or Eye Problems N Arthritis N Blood Clot N Cancer N Seasonal allergies N Leg or Foot Ulcers N Raynaud's Disease N Aortic Aneurysm N Arrhythmia N Headaches N Heart Problems N Ambloypia N Ear or Hearing Problems N Hyperparathyroidism N Migraines N Artificial Joints N Kidney or Bladder Problems N NSAID Use N Have you had a mammogram in the last yea r? N Encephalitis N PTSD N Ulcers N Prostate Hypertrophy N Bleeding Disorder N AIDS/HIV N Urinary Tract Infection N Back Problems N Allergies N Atrial Flutter N Have you had a PSA blood test in the las t year? N GERD/Reflux N Hepatitis N Autism Spectrum Disorder (ASD) N Breast Cancer N Hernia N Hypothyroidism N Breast Problem N Genitourinary Disease N Deep Vein Thrombosis N Varicose Veins N Cystic Fibrosis N Hearing Loss N Developmental Problems N Carotid Disease N Vitamin D Deficiency N ADHD N Bladder or Kidney Problems N High Cholesterol N [place] N Valvular Abnormalities N Psychiatric/Mental Health Condition N Organ Transplant N Foot Deformity N Allergies/Hayfever N Dyslipidemia N Hyponatremia N Diabetic Eye Disease N Osteoporosis/Osteopenia N Back Pain N Proteinuria N Mental Illness N Neurological Problems N Ovarian Cancer N Bedwetting N Seizures/Epilepsy N Kidney Failure N Ocular trauma N Diverticulitis N Dementia N Sleep Apnea N Mental Problems N Warfarin Management N Osteoporosis N Gynecological History Statement/Question Response Abnormal Pap N STIs/STDs N HPV Vaccine N Duration of Flow (days) 0 Age at Menarche 11 Current Control Method Menopause Age at First Child 15 If Post Menopausal, Age at Menopause 44 Sexually Active? Y Menses Monthly N Date of Last Pap Smear 09/07/2014 Sexual Problems? N LMP Desired Control Method N/A Obstetrics History GPAL:G 2 P 1 2 0 3 Type Value Multiple Births 0 Full Term 1 Induced 0 Spontaneous 0 Premature 2 Living 3 Ectopics 0 Total 2 Immunizations Vaccine Type Date Status Note Provider Nam e and Address Organization Details Recorded Time COVID-19, mRNA, LNP-S, PF, 30 mcg/0.3 mL dose 1 completed Vivek sunshine [place] [facility] 09/08/2020 15:03:45 COVID-19, mRNA, LNP-S, PF, 30 mcg/0.3 mL dose 1 completed Vivek sunshine [place] [facility] 09/08/2020 15:04:07 Influenza, split virus, quadrivalent, preservative 9 completed Sue sunshine [place] [facility] 03/23/2024 11:36:15 Pneumococcal conjugate PCV 13 1 completed [place] [facility] 03/23/2024 11:42:02 influenza, unspecified formulation 4 completed Luz Prajap[place] [facility] 03/24/2024 15:13:08 SARS-COV-2 (COVID-19) vaccine, UNSPECIFIED 4 completed Luz Prajap[place] [facility] 03/24/2024 15:13:31 Influenza, split virus, quadrivalent, PF 7 completed Not Available [facility] 03/27/2019 02:47:58 Influenza, split virus, quadrivalent, PF 8 completed Not Available [facility] 03/27/2019 02:35:58 pneumococcal, unspecified formulation 5 completed Dario [place], [place] [facility] 06/13/2015 14:35:35 Pneumococcal conjugate PCV20, polysaccharide STN238 conjugate, adjuvant, PF 5 completed Parish Patel MD Attn: Accounting[address] [place], [address], [place] [facility] 03/27/2024 20:59:43 Past Encounters Encounter ID Performer Location Encounter Start Date Encounter Closed Date Diagnosis/Indication Diagnosis SNOMED-CT Code Diagnosis ICD10 Code Diagnosis Note [id number] Marilynkeke Osman (Adult Med) [address] [place] [phone] 06/13/2015 13:48:31 06/13/2015 15:40:52 Hypertensive disorder 82961210 I10 Osteoarthritis of hip 23 1870221 M16.9 Osteoarthr itis of knee 407852819 M17.9 M17.11 Osteoarthr itis of foot joint 580942243 M19.079 [id number] Ryland Osman (SERVICE MANAGER) [address] [place] [id number] 07/10/2015 10:00:02 07/10/2015 11:02:26 Menopausal syndrome 243161247 N95.9 [id number] MD Dawson Nagy (Adult Med) [address] [place] [id number] 08/15/2015 14:40:01 08/15/2015 15:52:55 Osteoarthritis of hip 434721047 M16.9 Osteoarthr itis of knee 741811126 M17.9 M17.11 Osteoarthr itis of foot joint 940487025 M19.079 Hypertensive disorder 38 741453 I10 Osteopenia 974165268 M85 .80 Vitamin D deficiency 347 05449 E55.9 [id number] LAURA Corral (Adult Med) [address] [place] [phone] 10/06/2015 08:50:49 10/06/2015 09:34:12 Abscess of breast 07397082 N61 Under the right breast - will send for culture Bactrim DS BID x 10 day Patient advised to wait on mammogram until area is healed Advised to f/u if she develops nausea, vomiting, fever chills, any drainage from area or change in skin around the area [id number] LAURA Corral (Adult Med) [address] [place] [phone] 11/02/2015 08:42:22 11/02/2015 10:34:48 Abscess of breast 92367693 N61 Completed two courses of Bactrim and greatly improved One more day of Bactrim remaining f/u with PCP and OBGYN as needed [id number] MD [facility] (Adult Med) [address] [place] [address] [phone] 0 11/21/2015 15:11:40 11/21/2015 16:31:06 Abscess of breast [id number] N61 [id number] Malia Esquivel MD [facility] (Adult Med) [address] [place] [address] [phone] 0 04/25/2016 11:58:08 04/25/2016 15:43:39 Menopausal syndrome 641165732 N95.9 Osteoarthritis of hip 23 4996289 M16.9 She had left hip replacemen t in January 16 2016, and is doing well according to her. Osteoarthr itis of knee 705104171 M17.9 Her right pain seems coming back, wants baclofen refills. Osteoarthr itis of foot joint 295046086 M19.079 Hypertensive disorder 38 086896 I10 Neuropathy 939560034 G62 .9 Chronic low back pain 27 4680036 M54.5 [id number] MD [facility] (Adult Med) [address] [place] [address] [phone] 0 08/12/2016 14:58:40 08/14/2016 11:30:47 Lower urinary tract infectious disease 1055737 N39.0 Resolved. Osteoarthritis of hip 23 7955783 M16.9 She had left hip replacemen t in January 16 2016, and is doing well according to her. Osteopenia 782566382 M85 .80 On calcium, vitamin D. Vitamin D deficiency 347 14596 E55.9 On vitamin D supplement . Hypertensive disorder 38 535308 I10 On lisinopril . BP is well-contr oll. Screening mammography 24 086440 Z12.31 up-dated. Screening for malignant neoplasm of cervix 053389094 Z12.4 up-dated. Screening for malignant neoplasm of colon 715387830 Z12.11 Up-dated. [id number] [facility] [address] [place] [address] [phone] 0 11/18/2016 09:59:28 11/19/2016 14:05:34 Administration of influenza vaccine 06924696 Z23 Osteoarthritis of hip 23 1537755 M16.9 She had left hip replacemen t in January 16 2016, and is doing well according to her. Osteoarthr itis of knee 800112621 M17.9 Her right pain seems coming back, wants baclofen refills. Vitamin D deficiency 347 15540 E55.9 On vitamin D supplement . Hypertensive disorder 38 087032 I10 On lisinopril . BP is well-contr oll. Osteopenia 214929130 M85 .80 On calcium, vitamin D. Neuropathy 324897015 G62 .9 Chronic low back pain 27 8132521 M54.5 Menopausal syndrome 1237 62514 N95.9 Under the care of her gynecologi st. [id number] MD [facility] (Adult Med) [address] [place] [address] [phone] 0 03/06/2017 10:17:25 03/06/2017 11:48:49 Acute sinusitis 05997749 J01.90 Same antibiotic s as for bronchitis . 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 Degenerati ve joint disease involving multiple joints 390942306 M15.9 Vitamin D deficiency 347 31570 E55.9 On vitamin D supplement . Hypertensive disorder 38 172767 I10 On lisinopril . BP is well-contr oll. Chronic low back pain 27 9240055 M54.5 Osteoarthr itis of knee 045851710 M17.9 Her right pain seems coming back, wants baclofen refills. Osteopenia 292302729 M85 .80 On calcium, vitamin D. Neuropathy 076997172 G62 .9 [id number] Malia Esquivel MD [facility] (Adult Med) [address] [place] [address] [phone] 0 11/19/2017 10:20:04 11/19/2017 11:15:57 Osteoarthritis of hip 845286635 M16.9 She had left hip replacemen t in January 16 2016, and is doing well according to her. Osteoarthr itis of knee 215324981 M17.9 Her right pain seems coming back, wants baclofen refills. Vitamin D deficiency 347 18808 E55.9 On vitamin D supplement . Osteopenia 455170754 M85 .80 On calcium, vitamin D. Hypertensive disorder 38 870971 I10 On lisinopril . BP is well-contr oll. Neuropathy 164843682 G62 .9 Stable. Chronic low back pain 27 4735103 M54.5 Screening mammography 24 337058 Z12.31 up-dated. Screening for malignant neoplasm of cervix 872429116 Z12.4 up-dated. Screening for malignant neoplasm of colon 884305051 Z12.11 Up-dated. Administra tion of influenza vaccine 58196389 Z23 She tolerated shot well. [id number] Malia Esquivel MD [facility] (Adult Med) [address] [place] [address] [phone] 0 05/19/2018 09:50:59 05/20/2018 11:23:03 Osteoarthritis of hip 584546009 M16.9 She had left hip replacemen t in January 16 2016, and is doing well according to her. Osteoarthr itis of knee 625554047 M17.9 Her right pain seems coming back, wants baclofen refills. Vitamin D deficiency 347 97829 E55.9 On vitamin D supplement . Hypertensive disorder 38 749360 I10 On lisinopril . BP is well-contr oll. Osteopenia 703176258 M85 .80 On calcium, vitamin D. Neuropathy 877182656 G62 .9 Stable. Chronic low back pain 27 3333494 M54.5 [id number] [facility] [address] [place] [address] [phone] 0 11/19/2018 09:47:45 11/19/2018 10:18:07 Osteoarthritis of hip 151795494 M16.9 She had left hip replacemen t in January 16 2016, and is doing well according to her. Osteoarthr itis of knee 942791064 M17.9 Her right pain seems coming back, wants baclofen refills. Osteopenia 899864535 M85 .80 On calcium, vitamin D. Vitamin D deficiency 347 78714 E55.9 On vitamin D supplement . Hypertensive disorder 38 614117 I10 On lisinopril . BP is well-contr oll. Neuropathy 701807277 G62 .9 Stable. Chronic low back pain 27 7365428 M54.5 stable. Screening for malignant neoplasm of colon 980090019 Z12.11 Up-dated. Had in 2016. [id number] MD [facility] (Adult Med) [address] [place] [address] [phone] 0 05/21/2023 12:18:15 05/21/2023 12:41:33 Essential hypertension 16414953 I10 Bilateral thumb pain 676 1051348 5929916 M79.644 M79.645 Hyperlipidemia 54796402 E78.5 Restless legs 42114672 G 25.81 [id number] MD [facility] (Adult Med) [address] [place] [address] [phone] 0 11/19/2023 14:01:21 11/19/2023 14:51:29 Obesity 297459414 E66.8 Essential hypertension 55307106 I10 Screening mammography 24 308108 Z12.31 Postmenopausal state 764 10664 Z78.0 Screening for malignant neoplasm of colon 702390070 Z12.11 Hyperlipidemia 59911915 E78.5 [id number] Parish Patel MD [facility] (Adult Med) [address] [place] [address] [phone] 0 03/24/2024 14:51:13 03/24/2024 15:42:00 Body mass index 30+ - obesity 282662373 Z68.31 Obesity 589222876 E66.9 Adult [facility] th examination 859621427 Z00.00 Health Risk Assessment collected and reviewed Essential hypertension 99435516 I10 Administra tion of pneumococcal vaccine 92328790 Z23 Hyperlipidemia 85719169 E78.5 Vitamin D deficiency 347 70297 E55.9 Chronic low back pain 27 1515580 M54.50 Health Concerns Section Related Observation LastModified by Organization Detai ls LastModified Time None Recorded Concern Status LastModified by Organization Details LastModified Time None Recorded Advance Directives Directive N: Payers Encounter Date Sequence Insurance Name Policy Number Policy [place] Covered Member ID [place] Member ID Guarantor Name 05/19/2018 1 [place] [id number] Ree Harris [id number] Ree Harris 11/19/2018 1 [place] [id number] Ree Harris [id number] Ree Harris 05/21/2023 1 [facility] (MEDICARE REPLACEMENT/A DVANTAGE - HMO) [id number] Ree Harris [id number] Ree Harris 11/19/2023 1 [facility] (MEDICARE REPLACEMENT/A DVANTAGE - HMO) [id number] Ree Harris [id number] Ree Harris 03/24/2024 1 [facility] (MEDICARE REPLACEMENT/A DVANTAGE - HMO) [id number] Ree Harris [id number] Ree Harris Notes Date Note Type Note Provider Name and Address Organization Details Recorded Time 05/19/2018 text/html F/U and refills of medications. Malia Esquivel MD Attn: [employer],[address], [place], [address], [facility] 05/19/2018 10:24:13 11/19/2018 text/html Arthritism, hypertension , vitamin D deficiency, NKDA. Malia Esquivel MD Attn: [employer],[address], [place], [address], [facility] 11/19/2018 10:14:59 05/21/2023 text/html Lobe bilateral t humb pain mild to moderate worse worse with trying to lift things and grasping things has not really tried to take anything hyperlipidemia taking her medication try to follow low-fat diet. Hypertension no chest pain no dizziness. Restless legs doing well with gabapentin Parish Patel MD Attn: [employer] [facility], [place], [address], [facility] 05/25/2023 15:52:38 11/19/2023 text/html obesity trouble losing weight postmenopausal state due for bone density needs colonoscopy dyslipidemia does try to follow a diet hypertension no chest pain no shortness a breath or headache Parish Patel MD Attn: [employer] , [place], [address], [facility] 11/22/2023 21:31:54 03/24/2024 text/html MAW 2Reported bypatient.Diet and Nutrition:healthy diet Fracture Risk:no history of fractures; no sudden unexplained fractures Concentration and Memory:no decreased concentrating ability; no memory lapses or loss; does not forget words Speech/Motor difficulties:no speech difficulties; no difficulty expressing formulated concepts; no difficulty with fine manipulative tasks; no difficulty writing/copying; no slowed reaction time; does not knock things over when trying to pick them up Hearing:no loss of hearing Vision:worse both distance and near(bifocals) Activities of Daily Living:able to bathe with limited or no assistance; able to contol urination and bowels; able to dress with limited or no assistance; able to feed self with limited or no assistance; able to get out of chair or bed with limited or no assistance; able to groom with limited or no assistance; able to toilet with limited or no assistance Instrumental Activities of Daily Living:able to do house work with limited or no assistance; able to grocery shop with limited or no assistance; able to manage medications with limited or no assistance; able to manage money with limited or no assistance; able to prepare meals with limited or no assistance; able to use the phone with limited or no assistance Falls Risk Assessment:no frequent falls while walking; no fall in the past year; no fall since last visit; no dizziness/vertigo Home Safety:no unsafe remedios hazzards; no unsafe stairs; working smoke/CO detectors; practicing 'safer sex'; no fire arms; has hand bars in the bathroom/shower; good lighting in the home chronic back pain stable he uses gabapentin. Hypertension looks good 120/64 no chest pain no shortness a breath. Hyperlipidemia she does try to follow a low-fat diet. Low vitamin-D level [id number] supplementation Parish Patel MD Attn: [address] [place], [address], [facility] 03/27/2024 21:06:00 OBGyn Episode Ob Episode Information Episode Created Date Number of Fetuses Patient Bloodtype Patient rh Status Prepregnancy Weight lbs Domestic Partner Domestic Partner Phone Father Name Marketing Operations Specialist Status 07/10/19 16 2 CLOSED Fetus Data First Name Last Name Admitted to NICU Weight (g) Sex Living Outcome Pediatric Complications Fetus ID Race Codes Race Delivery Type 2324.65 9 M [place] [address] Vaginal 06316 Vasile Calculation Initial Vasile Date Initial Exam Date Initial Exam Provider Initial Ultrasound Date Last Menstrual Period Date Ultra Sound Weeks Gestation 0 Eighteen To Twenty Week Vasile Update Ultra Sound Date Fundal Height At Umbil Quickening Date Ultra Sound Latest Weeks Gestation Final Vasile Confirmed By Final Vasile Confirmed Date Final Vasile Date Ultra Sound Latest Days Gestation 0 0 Menstrual History Last Menstrual Date Menses Monthly On Bcp Conception Prior Menses Frequency Hcg Plus Date Menarche Onset Age Delivery Information Delivery Date Delivery Type Labor Anesthesia Weeks Gestation Incision Type Labor Labor Length Hrs Delivered By Post Complications Tubal Sterilization Discharge Date Comments 7 None 31 Discharge Information Feeding Method Contraceptive Method Maternal HG B and HCT Levels Ob Episode Information Episode Created Date Number of Fetuses Patient Bloodtype Patient rh Status Prepregnancy Weight lbs Domestic Partner Domestic Partner Phone Father Name Marketing Operations Specialist Status 07/10/19 16 1 CLOSED Fetus Data First Name Last Name Admitted to NICU Weight (g) Sex Living Outcome Pediatric Complications Fetus ID Race Codes Race Delivery Type 3090.09 54 F Full Term 08429 Vaginal Vasile Calculation Initial Vasile Date Initial Exam Date Initial Exam Provider Initial Ultrasound Date Last Menstrual Period Date Ultra Sound Weeks Gestation 0 Eighteen To Twenty Week Vasile Update Ultra Sound Date Fundal Height At Umbil Quickening Date Ultra Sound Latest Weeks Gestation Final Vasile Confirmed By Final Vasile Confirmed Date Final Vasile Date Ultra Sound Latest Days Gestation 0 0 Menstrual History Last Menstrual Date Menses Monthly On Bcp Conception Prior Menses Frequency Hcg Plus Date Menarche Onset Age Delivery Information Delivery Date Delivery Type Labor Anesthesia Weeks Gestation Incision Type Labor Labor Length Hrs Delivered By Post Complications Tubal Sterilization Discharge Date Comments 1 None 37 Discharge Information Feeding Method Contraceptive Method Maternal HG B and HCT Levels Ob Episode Information Episode Created Date Number of Fetuses Patient Bloodtype Patient rh Status Prepregnancy Weight lbs Domestic Partner Domestic Partner Phone Father Name Marketing Operations Specialist Status 07/10/19 16 2 CLOSED Fetus Data First Name Last Name Admitted to NICU Weight (g) Sex Living Outcome Pediatric Complications Fetus ID Race Codes Race Delivery Type 1842.71 74 F [place]atur [place] [address]84 Vaginal 87293 Vasile Calculation Initial Vasile Date Initial Exam Date Initial Exam Provider Initial Ultrasound Date Last Menstrual Period Date Ultra Sound Weeks Gestation 0 Eighteen To Twenty Week Vasile Update Ultra Sound Date Fundal Height At Umbil Quickening Date Ultra Sound Latest Weeks Gestation Final Vasile Confirmed By Final Vasile Confirmed Date Final Vasile Date Ultra Sound Latest Days Gestation 0 0 Menstrual History Last Menstrual Date Menses Monthly On Bcp Conception Prior Menses Frequency Hcg Plus Date Menarche Onset Age Delivery Information Delivery Date Delivery Type Labor Anesthesia Weeks Gestation Incision Type Labor Labor Length Hrs Delivered By Post Complications Tubal Sterilization Discharge Date Comments 7 None 31 Discharge Information Feeding Method Contraceptive Method Maternal HG B and HCT Levels
== END 2024-04-05 14:54 | disposition home or self-care (01) ==
LOC: ANHIMG 14:55
PROVIDERS: PCP Internal Medicine; Visit Provider Internal Medicine
DX: Z12.31 Encounter for screening mammogram for malignant neoplasm of breast (principal); Z78.0 Asymptomatic menopausal state
CPT/HCPCS: 77063; 77067

== ENCOUNTER 2024-04-28 08:07 | Outpatient (CLI) | payer MEDICARE, SELFPAY ==
--- NOTE | ~2024-04-28 | DEXA_ITS ---
Bone Density Report Name: AUGUST GILMAN Age: 68 Sex: Female Ethnicity: White Date of : 1955 Indication: postmenopausal; screening for osteoporosis; Referring Provider: PARISH POMPA Study: Bone densitometry was performed. Exam Date: April 28, 2024 Accession number: [id number] Bone Density: Region BMD T-score Z-score Classification AP Spine(L1-L4) 1.204 1.4 3.5 Normal Femoral Neck (Right) 0.725 -1.1 0.7 Osteopenia Total Hip (Right) 0.892 -0.4 1.1 Normal World Health Organization criteria for BMD impression classify patients as: Normal (T-score at or above -1.0), Osteopenia (T-score between -1.0 and -2.5), or Osteoporosis (T-score at or below -2.5). 10-year Fracture Risk(1): Major Osteoporotic Fracture 8.6% Hip Fracture 0.9% Reported Risk Factors: [place] (), Neck BMD=0.725, BMI=31.2 (1) FRAX(R) Version 3.08. Fracture probability calculated for an untreated patient. Fracture probability may be lower if the patient has received treatment. Clinical Information Provided by Patient: Has used the following medications: Vitamin D Patient maximum height was 62 Menopause Age: 41 No regular weight bearing exercise Does not regularly consume dairy products Drinks caffeinated beverages Onset of menses at age 12 Number of children 2 Impression: The patient has low bone mass, based on the Right Femoral Neck T-score. The patient has an estimated ten-year risk of hip fracture of 0.9% and an estimated ten-year risk of major fracture of 8.6%, based on the WHO FRAX algorithm. Discussion: BONE DENSITY IS LOW AT ONE OR MORE SKELETAL SITES. This patient's lowest T-score is low at one or more skeletal sites. It meets the World Health Organization's (WHO) criteria for ?low bone mass? (T-score between -1.0 and -2.5). The patient's 10-year risk of fracture as calculated by FRAX is less than the threshold where pharmacological therapy is recommended by the National Osteoporosis Foundation (NOF). However, all treatment decisions require clinical judgment and consideration of individual patient factors, including patient preferences, comorbidities, previous drug use, risk factors not captured in the FRAX model (e.g., frailty, falls, vitamin D deficiency, increased bone turnover, interval significant decline in bone density) and possible under or overestimation of fracture risk by FRAX. The patient should follow a healthful lifestyle (good nutrition with adequate calcium and vitamin D, and appropriate weight-bearing exercise). Follow-Up: Consider repeating this study in 2 to 3 years to reassess this patient's status, or sooner if there is some new clinical indication. Reported by: AILEEN on 04/28/2024 8:37:00 AM. Reviewed, dictated and finalized at location [facility]
--- OUTSIDE RECORDS SUMMARY | 2024-04-28 08:11 | XMS_ITS | Data Portability ---
Author Organization [place] [facility], Main Office Address [address] [place] [address] Assessment Encounter Date Assessment Date Assessment LastModified by Organization Details LastModified Time 05/22/2022 05/22/2022 Blood work dyslipidemia atorvastatin chronic leg pain gabapentin hypertension lisinopril osteoarthritis meloxicam as needed blood work ordered follow-up in 6 months [email or web address] Not available 05/22/2022 21:13:41 11/20/2022 11/20/2022 Continue current therapy six-month follow-up Not available 12/03/2022 10:42:29 03/26/2023 03/26/2023 I have recommended that she do yoga on a daily basis dyslipidemia diet and statin hypertension lisinopril follow-up 6 months [email or web address] Not available 04/05/2023 15:40:52 Plan of Treatment Reminders Order Date Submit Date Provider Last Modified By Organization Details Last Modified Time Details Appointments None recorded . Lab CMP, serum or plasma 024 03/26/[address] (Lab), [address] [place], [address], 4 21:11:47 lipid panel, serum 024 03/26/[address] (Lab), [address] [place], [address], 4 21:11:47 CBC w/ auto diff 024 03/26/[address] (Lab), [address] [place], [address], 4 21:11:47 CMP, serum or plasma 023 05/23/[address] (Lab), [address] [place], [address], 3 17:28:48 lipid panel, serum 023 05/23/[address] (Lab), [address] [place], [address], 3 17:28:48 Referral None recorded . Procedures None recorded [...] mmol/ L 137-14 5 low Not Available [facility] (Lab) [address] [place], [address], 05/23/2021 14:07:13 05/24/19 22 05/23/2021 COMPR EHENS JOSÉ ANTONIO METAB OLIC PANEL potassium 4.4 mmol/ L 3.5-5. 1 Not Available [facility] (Lab) [address] [place], [address], 05/23/2021 14:07:13 05/24/19 22 05/23/2021 COMPR EHENS JOSÉ ANTONIO METAB OLIC PANEL chloride 104 mmol/ L 98-107 Not Available [facility] (Lab) [address] [place], [address], 05/23/2021 14:07:13 05/24/19 22 05/23/2021 COMPR EHENS JOSÉ ANTONIO METAB OLIC PANEL carbon dioxide 28 mmol/ L 22-30 Not Available [facility] (Lab) [address] [place], [address], 05/23/2021 14:07:13 05/24/19 22 05/23/2021 COMPR EHENS JOSÉ ANTONIO METAB OLIC PANEL agap 8.4 mmol/ L 14- low Not Available [facility] (Lab) [address] [place], [address], 05/23/2021 14:07:13 05/24/19 22 05/23/2021 COMPR EHENS JOSÉ ANTONIO METAB OLIC PANEL glucose 90 mg/dL 70-99 Not Available [facility] (Lab) [address] [place], [address], 05/23/2021 14:07:13 05/24/19 22 05/23/2021 COMPR EHENS JOSÉ ANTONIO METAB OLIC PANEL BUN 19 mg/dL 8-19 Not Available [facility] (Lab) [address] [place], [address], 05/23/2021 14:07:13 05/24/19 22 05/23/2021 COMPR EHENS JOSÉ ANTONIO METAB OLIC PANEL creatinine 0.89 mg/dL 0.66-1 .25 Not Available [facility] (Lab) [address] [place], [address], 05/23/2021 14:07:13 05/24/19 22 05/23/2021 COMPR EHENS JOSÉ ANTONIO METAB OLIC PANEL GFR >60 Refer ence Range : [place] ge GFR Healt hy Adult : >60 [...] calcu lator is avail able on the [facility] websi te: https :[email or web address] w.kid charlie.o rg/pr ofess ional s/kdo qi/gf r_cal culat or Not Available [facility] (Lab) [address] [place], [address], 05/23/2021 14:07:13 05/24/19 22 05/23/2021 COMPR EHENS JOSÉ ANTONIO METAB OLIC PANEL alkaline phosphatase 86 U/L 38-126 Not Available [facility] (Lab) [address] [place], [address], 05/23/2021 14:07:13 05/24/19 22 05/23/2021 COMPR EHENS JOSÉ ANTONIO METAB OLIC PANEL alanine aminotransfe rase 17 U/L 0-35 Not Available [facility] (Lab) [address] [place], [address], 05/23/2021 14:07:13 05/24/19 22 05/23/2021 COMPR EHENS JOSÉ ANTONIO METAB OLIC PANEL aspartate aminotransfe rase 24 U/L 15-37 Not Available [facility] (Lab) [address] [place], [address], 05/23/2021 14:07:13 05/24/19 22 05/23/2021 COMPR EHENS JOSÉ ANTONIO METAB OLIC PANEL bilirubin, total 0.50 mg/dL 0.20-1 .30 Not Available [facility] (Lab) [address] [place], [address], 05/23/2021 14:07:13 05/24/19 22 05/23/2021 COMPR EHENS JOSÉ ANTONIO METAB OLIC PANEL calcium 9.6 mg/dL 8.4-10 .2 Not Available [facility] (Lab) [address] [place], [address], 05/23/2021 14:07:13 05/24/19 22 05/23/2021 COMPR EHENS JOSÉ ANTONIO METAB OLIC PANEL total protein 6.8 g/dL 6.3-8. 2 Not Available [facility] (Lab) [address] [place], [address], 05/23/2021 14:07:13 05/24/19 22 05/23/2021 COMPR EHENS JOSÉ ANTONIO METAB OLIC PANEL albumin 4.1 g/dL 3.0-4. 4 Not Available [facility] (Lab) [address] [place], [address], 05/23/2021 14:07:13 05/24/19 22 05/23/2021 COMPR EHENS JOSÉ ANTONIO METAB OLIC PANEL globulin 2.7 g/dL 2.6-4. 2 Not Available [facility] (Lab) [address] [place], [address], 05/23/2021 14:07:13 05/24/19 22 05/23/2021 COMPR EHENS JOSÉ ANTONIO METAB OLIC PANEL A/G ratio 1.5 ratio 1.0-2. 0 Not Available [facility] (Lab) [address] [place], [address], 05/23/2021 14:07:13 05/24/19 22 05/23/2021 LIPID PANEL cholesterol 176 mg/dL 140-19 9 [facility] SILVE[facility]RE NSUS RECOM MENDA TION FOR SAUD STERO L: ADULT CHILD LOW RISK: <200 <170 BORDE RLINE : <200- 239 ----- HIGH RISK: >240 >200 Not Available [facility] (Lab) [address] [place], [address], 05/23/2021 14:07:07 05/24/19 22 05/23/2021 LIPID PANEL triglyceride s 96 mg/dL 0-150 [facility] SILVE[facility]RE NSUS REPOR T RECOM MENDA TION FOR TRIGL YCERI CHEVY: ADULT CHILD LOW RISK: <150 ----- BODER LINE: 150-1 99 ----- HIGH RISK: >200 ----- Not Available [facility] (Lab) [address] [place], [address], 05/23/2021 14:07:07 05/24/19 22 05/23/2021 LIPID PANEL HDL cholesterol 106 mg/dL 40- Not Available [facility] (Lab) [address] [place], [address], 05/23/2021 14:07:07 05/24/19 22 05/23/2021 LIPID PANEL [...] WILL NOT BE REPOR PETER. Not Available [facility] (Lab) [address] [place], [address], 05/23/2021 14:07:07 05/24/19 22 05/23/2021 CBC/C OMPLE TE BLD COUNT W/DIF F white blood cells 6.1 x10'3 /uL 4.2-10 .8 Not Available [facility] (Lab) [address] [place], [address], 05/23/2021 13:11:47 05/24/19 22 05/23/2021 CBC/C OMPLE TE BLD COUNT W/DIF F red blood cells 4.76 x10'6 /uL 3.80-5 .20 Not Available [facility] (Lab) [address] [place], [address], 05/23/2021 13:11:47 05/24/19 22 05/23/2021 CBC/C OMPLE TE BLD COUNT W/DIF F hemoglobin 14.9 g/dL 12.0-1 5.6 Not Available [facility] (Lab[facility] [address] [facility] [place], [address], 05/23/2021 13:11:47 05/24/19 22 05/23/2021 CBC/C OMPLE TE BLD COUNT W/DIF F hematocrit 42.9 % 35.7-4 5.7 Not Available [facility] (Lab) [address] [place], [address], 05/23/2021 13:11:47 05/24/19 22 05/23/2021 CBC/C OMPLE TE BLD COUNT W/DIF F mean red cell volume 90.1 fL 82.0-9 9.0 Not Available [facility] (Lab) [address] [place], [address], 05/23/2021 13:11:47 05/24/19 22 05/23/2021 CBC/C OMPLE TE BLD COUNT W/DIF F mean red cell hemoglobin 31.3 pg 27.0-3 3.0 Not Available [facility] (Lab) [address] [place], [address], 05/23/2021 13:11:47 05/24/19 22 05/23/2021 CBC/C OMPLE TE BLD COUNT W/DIF F mean RBC HGB concentratio n 34.7 g/dL 31.0-3 6.0 Not Available [facility] (Lab) [address] [place], [address], 05/23/2021 13:11:47 05/24/19 22 05/23/2021 CBC/C OMPLE TE BLD COUNT W/DIF F red cell distribution width 13.1 % 11.8-1 5.5 Not Available [facility] (Lab) [address] [place], [address], 05/23/2021 13:11:47 05/24/19 22 05/23/2021 CBC/C OMPLE TE BLD COUNT W/DIF F platelets 216 x10'3 /uL 150-40 0 Not Available [facility] (Lab) [address] [place], [address], 05/23/2021 13:11:47 05/24/19 22 05/23/2021 CBC/C OMPLE TE BLD COUNT W/DIF F mean platelet volume 11.3 fL 9.0-12 .4 Not Available [facility] (Lab) [address] [place], [address], 05/23/2021 13:11:47 05/24/19 22 05/23/2021 CBC/C OMPLE TE BLD COUNT W/DIF F neutrophils 53.8 % 39.0-7 2.0 Not Available [facility] (Lab) [address] [place], [address], 05/23/2021 13:11:47 05/24/19 22 05/23/2021 CBC/C OMPLE TE BLD COUNT W/DIF F lymphocytes 33.9 % 16.0-4 7.0 Not Available [facility] (Lab) [address] [place], [address], 05/23/2021 13:11:47 05/24/19 22 05/23/2021 CBC/C OMPLE TE BLD COUNT W/DIF F monocytes 8.2 % 5.0-12 .0 Not Available [facility] (Lab) [address] [place], [address], 05/23/2021 13:11:47 05/24/19 22 05/23/2021 CBC/C OMPLE TE BLD COUNT W/DIF F eosinophils 3.1 % 1.0-7. 0 Not Available [facility] (Lab) [address] [place], [address], 05/23/2021 13:11:47 05/24/19 22 05/23/2021 CBC/C OMPLE TE BLD COUNT W/DIF F basophils 0.8 % 0.0-2. 0 Not Available [facility] (Lab) [address] [place], [address], 05/23/2021 13:11:47 05/24/19 22 05/23/2021 CBC/C OMPLE TE BLD COUNT W/DIF F immature granulocytes 0.2 % 0.00-0 .50 Not Available [facility] (Lab) [address] [place], [address], 05/23/2021 13:11:47 05/24/19 22 05/23/2021 CBC/C OMPLE TE BLD COUNT W/DIF F neutrophils, absolute count 3.30 x10'3 /uL 1.5-8. 0 Not Available [facility] (Lab) [address] [place], [address], 05/23/2021 13:11:47 05/24/19 22 05/23/2021 CBC/C OMPLE TE BLD COUNT W/DIF F lymphocytes, absolute count 2.08 x10'3 /uL 1.07-3 .43 Not Available [facility] (Lab) [address] [place], [address], 05/23/2021 13:11:47 05/24/19 22 05/23/2021 CBC/C OMPLE TE BLD COUNT W/DIF F monocytes, absolute count 0.50 x10'3 /uL 0.29-0 .99 Not Available [facility] (Lab) [address] [place], [address], 05/23/2021 13:11:47 05/24/19 22 05/23/2021 CBC/C OMPLE TE BLD COUNT W/DIF F eosinophils, absolute count 0.19 x10'3 /uL 0.02-0 .53 Not Available [facility] (Lab) [address] [place], [address], 05/23/2021 13:11:47 05/24/19 22 05/23/2021 CBC/C OMPLE TE BLD COUNT W/DIF F basophils, absolute count 0.05 x10'3 /uL 0.01-0 .08 Not Available [facility] (Lab) [address] [place], [address], 05/23/2021 13:11:47 05/24/19 22 05/23/2021 CBC/C OMPLE TE BLD COUNT W/DIF F immature granulocytes ,absolute 0.01 x10'3 /uL 0.00-0 .05 Not Available [facility] (Lab) [address] [place], [address], 05/23/2021 13:11:47 05/24/19 22 05/23/2021 CBC/C OMPLE TE BLD COUNT W/DIF F nucleated red blood cells 0.0 % -0 Not Available [facility] (Lab) [address] [place], [address], 05/23/2021 13:11:47 05/24/19 22 05/23/2021 CBC/C OMPLE TE BLD COUNT W/DIF F NRBC# 0.00 x10'3 /uL Not Available [facility] (Lab) [address] [place], [address], 05/23/2021 13:11:47 11/29/19 22 11/28/2021 LIPID PANEL cholesterol 184 mg/dL 140-19 9 [facility] SILVE[facility]RE NSUS RECOM MENDA TION FOR SAUD STERO L: ADULT CHILD LOW RISK: <200 <170 BORDE RLINE : <200- 239 ----- HIGH RISK: >240 >200 Not Available [facility] (Lab) [address] [place], [address], 11/28/2021 18:58:09 11/29/19 22 11/28/2021 LIPID PANEL triglyceride s 135 mg/dL 0-150 [facility] SILVESTRE NSUS REPOR T RECOM MENDA TION FOR TRIGL YCERI CHEVY: ADULT CHILD LOW RISK: <150 ----- BODER LINE: 150-1 99 ----- HIGH RISK: >200 ----- Not Available [facility] (Lab) [address] [place], [address], 11/28/2021 18:58:09 11/29/19 22 11/28/2021 LIPID PANEL HDL cholesterol 118 mg/dL 40- Not Available [facility] (Lab) [address] [place], [address], 11/28/2021 18:58:09 11/29/19 22 11/28/2021 LIPID PANEL [...] WILL NOT BE REPOR PETER. Not Available [facility] (Lab) [address] [place], [address], 11/28/2021 18:58:09 11/29/19 22 11/28/2021 COMPR EHENS JOSÉ ANTONIO METAB OLIC PANEL sodium 138 mmol/ L 137-14 5 Not Available [facility] (Lab) [address] [place], [address], 11/28/2021 18:42:24 11/29/19 22 11/28/2021 COMPR EHENS JOSÉ ANTONIO METAB OLIC PANEL potassium 4.8 mmol/ L 3.5-5. 1 Not Available [facility] (Lab) [address] [place], [address], 11/28/2021 18:42:24 11/29/19 22 11/28/2021 COMPR EHENS JOSÉ ANTONIO METAB OLIC PANEL chloride 103 mmol/ L 98-107 Not Available [facility] (Lab) [address] [place], [address], 11/28/2021 18:42:24 11/29/19 22 11/28/2021 COMPR EHENS JOSÉ ANTONIO METAB OLIC PANEL carbon dioxide 28 mmol/ L 22-30 Not Available [facility] (Lab) [address] [place], [address], 11/28/2021 18:42:24 11/29/19 22 11/28/2021 COMPR EHENS JOSÉ ANTONIO METAB OLIC PANEL anion gap 11.8 mmol/ L 14-22 low Not Available [facility] (Lab) [address] [place], [address], 11/28/2021 18:42:24 11/29/19 22 11/28/2021 COMPR EHENS JOSÉ ANTONIO METAB OLIC PANEL glucose 77 mg/dL 70-99 Not Available [facility] (Lab) [address] [place], [address], 11/28/2021 18:42:24 11/29/19 22 11/28/2021 COMPR EHENS JOSÉ ANTONIO METAB OLIC PANEL BUN 20 mg/dL 8-19 high Not Available [facility] (Lab) [address] [place], [address], 11/28/2021 18:42:24 11/29/19 22 11/28/2021 COMPR EHENS JOSÉ ANTONIO METAB OLIC PANEL creatinine 1.02 mg/dL 0.66-1 .25 Not Available [facility] (Lab) [address] [place], [address], 11/28/2021 18:42:24 11/29/19 22 11/28/2021 COMPR EHENS JOSÉ ANTONIO METAB OLIC PANEL GFR 54 Refer ence Range : [place] ge GFR Healt hy Adult : >60 [...] calcu lator is avail able on the [facility] websi te: [email or web address] :[email or web address] claudia/pr ofess ional s/kdo qi/gf r_cal culat or Not Available [facility] (Lab) [address] [place], [address], 11/28/2021 18:42:24 11/29/19 22 11/28/2021 COMPR EHENS JOSÉ ANTONIO METAB OLIC PANEL alkaline phosphatase 78 U/L 38-126 Not Available [facility] (Lab) [address] [place], [address], 11/28/2021 18:42:24 11/29/19 22 11/28/2021 COMPR EHENS JOSÉ ANTONIO METAB OLIC PANEL alanine aminotransfe rase 19 U/L 0-35 Not Available [facility] (Lab) [address] [place], [address], 11/28/2021 18:42:24 11/29/19 22 11/28/2021 COMPR EHENS JOSÉ ANTONIO METAB OLIC PANEL aspartate aminotransfe rase 27 U/L 15-37 Not Available [facility] (Lab) [address] [place], [address], 11/28/2021 18:42:24 11/29/19 22 11/28/2021 COMPR EHENS JOSÉ ANTONIO METAB OLIC PANEL bilirubin, total 0.60 mg/dL 0.20-1 .30 Not Available [facility] (Lab) [address] [place], [address], 11/28/2021 18:42:24 11/29/19 22 11/28/2021 COMPR EHENS JOSÉ ANTONIO METAB OLIC PANEL calcium 9.8 mg/dL 8.4-10 .2 Not Available [facility] (Lab) [address] [place], [address], 11/28/2021 18:42:24 11/29/19 22 11/28/2021 COMPR EHENS JOSÉ ANTONIO METAB OLIC PANEL total protein 6.9 g/dL 6.3-8. 2 Not Available [facility] (Lab) [address] [place], [address], 11/28/2021 18:42:24 11/29/19 22 11/28/2021 COMPR EHENS JOSÉ ANTONIO METAB OLIC PANEL albumin 4.5 g/dL 3.0-4. 4 high Not Available [facility] (Lab) [address] [place], [address], 11/28/2021 18:42:24 11/29/19 22 11/28/2021 COMPR EHENS JOSÉ ANTONIO METAB OLIC PANEL globulin 2.4 g/dL 2.6-4. 2 low Not Available [facility] (Lab) [address] [place], [address], 11/28/2021 18:42:24 11/29/19 22 11/28/2021 COMPR EHENS JOSÉ ANTONIO METAB OLIC PANEL A/G ratio 1.9 ratio 1.0-2. 0 Not Available [facility] (Lab) [address] [place], [address], 11/28/2021 18:42:24 11/29/19 22 11/28/2021 APTT APTT 28.2 secon ds 22.2-3 1.5 Not Available [facility] (Lab) [address] [place], [address], 11/28/2021 18:07:56 11/29/19 22 11/28/2021 PROTI ME W/INR protime 10.5 secon ds 9.5-11 .5 Not Available [facility] (Lab) [address] [place], [address], 11/28/2021 18:07:55 11/29/19 22 11/28/2021 PROTI ME [...] HOSPH OLIPI D SYNDR OME. Not Available [facility] (Lab) [address] [place], [address], 11/28/2021 18:07:55 11/29/19 22 11/28/2021 CBC/C OMPLE TE BLD COUNT W/DIF F white blood cells 7.9 x10'3 /uL 4.2-10 .8 Not Available [facility] (Lab) [address] [place], [address], 11/28/2021 17:55:55 11/29/19 22 11/28/2021 CBC/C OMPLE TE BLD COUNT W/DIF F red blood cells 4.73 x10'6 /uL 3.80-5 .20 Not Available [facility] (Lab) [address] [place], [address], 11/28/2021 17:55:55 11/29/19 22 11/28/2021 CBC/C OMPLE TE BLD COUNT W/DIF F hemoglobin 14.1 g/dL 12.0-1 5.6 Not Available [facility] (Lab) [address] [place], [address], 11/28/2021 17:55:55 11/29/19 22 11/28/2021 CBC/C OMPLE TE BLD COUNT W/DIF F hematocrit 43.0 % 35.7-4 5.7 Not Available [facility] (Lab) [address] [place], [address], 11/28/2021 17:55:55 11/29/19 22 11/28/2021 CBC/C OMPLE TE BLD COUNT W/DIF F mean red cell volume 90.9 fL 82.0-9 9.0 Not Available [facility] (Lab) [address] [place], [address], 11/28/2021 17:55:55 11/29/19 22 11/28/2021 CBC/C OMPLE TE BLD COUNT W/DIF F mean red cell hemoglobin 29.8 pg 27.0-3 3.0 Not Available [facility] (Lab) [address] [place], [address], 11/28/2021 17:55:55 11/29/19 22 11/28/2021 CBC/C OMPLE TE BLD COUNT W/DIF F mean RBC HGB concentratio n 32.8 g/dL 31.0-3 6.0 Not Available [facility] (Lab) [address] [place], [address], 11/28/2021 17:55:55 11/29/19 22 11/28/2021 CBC/C OMPLE TE BLD COUNT W/DIF F red cell distribution width 13.1 % 11.8-1 5.5 Not Available [facility] (Lab) [address] [place], [address], 11/28/2021 17:55:55 11/29/19 22 11/28/2021 CBC/C OMPLE TE BLD COUNT W/DIF F platelets 218 x10'3 /uL 150-40 0 Not Available [facility] (Lab) [address] [place], [address], 11/28/2021 17:55:55 11/29/19 22 11/28/2021 CBC/C OMPLE TE BLD COUNT W/DIF F mean platelet volume 10.9 fL 9.0-12 .4 Not Available [facility] (Lab) [address] [place], [address], 11/28/2021 17:55:55 11/29/19 22 11/28/2021 CBC/C OMPLE TE BLD COUNT W/DIF F neutrophils 53.5 % 39.0-7 2.0 Not Available [facility] (Lab) [address] [place], [address], 11/28/2021 17:55:55 11/29/19 22 11/28/2021 CBC/C OMPLE TE BLD COUNT W/DIF F lymphocytes 33.3 % 16.0-4 7.0 Not Available [facility] (Lab) [address] [place], [address], 11/28/2021 17:55:55 11/29/19 22 11/28/2021 CBC/C OMPLE TE BLD COUNT W/DIF F monocytes 9.3 % 5.0-12 .0 Not Available [facility] (Lab) [address] [place], [address], 11/28/2021 17:55:55 11/29/19 22 11/28/2021 CBC/C OMPLE TE BLD COUNT W/DIF F eosinophils 3.1 % 1.0-7. 0 Not Available [facility] (Lab) [address] [place], [address], 11/28/2021 17:55:55 11/29/19 22 11/28/2021 CBC/C OMPLE TE BLD COUNT W/DIF F basophils 0.5 % 0.0-2. 0 Not Available [facility] (Lab) [address] [place], [address], 11/28/2021 17:55:55 11/29/19 22 11/28/2021 CBC/C OMPLE TE BLD COUNT W/DIF F immature granulocytes 0.3 % 0.00-0 .50 Not Available [facility] (Lab) [address] [place], [address], 11/28/2021 17:55:55 11/29/19 22 11/28/2021 CBC/C OMPLE TE BLD COUNT W/DIF F neutrophils, absolute count 4.21 x10'3 /uL 1.5-8. 0 Not Available [facility] (Lab) [address] [place], [address], 11/28/2021 17:55:55 11/29/19 22 11/28/2021 CBC/C OMPLE TE BLD COUNT W/DIF F lymphocytes, absolute count 2.62 x10'3 /uL 1.07-3 .43 Not Available [facility] (Lab) [address] [place], [address], 11/28/2021 17:55:55 11/29/19 22 11/28/2021 CBC/C OMPLE TE BLD COUNT W/DIF F monocytes, absolute count 0.73 x10'3 /uL 0.29-0 .99 Not Available [facility] (Lab) [address] [place], [address], 11/28/2021 17:55:55 11/29/19 22 11/28/2021 CBC/C OMPLE TE BLD COUNT W/DIF F eosinophils, absolute count 0.24 x10'3 /uL 0.02-0 .53 Not Available [facility] (Lab) [address] [place], [address], 11/28/2021 17:55:55 11/29/19 22 11/28/2021 CBC/C OMPLE TE BLD COUNT W/DIF F basophils, absolute count 0.04 x10'3 /uL 0.01-0 .08 Not Available [facility] (Lab) [address] [place], [address], 11/28/2021 17:55:55 11/29/19 22 11/28/2021 CBC/C OMPLE TE BLD COUNT W/DIF F immature granulocytes ,absolute 0.02 x10'3 /uL 0.00-0 .05 Not Available [facility] (Lab) [address] [place], [address], 11/28/2021 17:55:55 11/29/19 22 11/28/2021 CBC/C OMPLE TE BLD COUNT W/DIF F nucleated red blood cells 0.0 % -0 Not Available [facility] (Lab) [address] [place], [address], 11/28/2021 17:55:55 11/29/19 22 11/28/2021 CBC/C OMPLE TE BLD COUNT W/DIF F NRBC# 0.00 x10'3 /uL Not Available [facility] (Lab[facility] [address] [facility] [place], [address], 11/28/2021 17:55:55 05/23/19 23 05/22/2022 COMPR EHENS JOSÉ ANTONIO METAB OLIC PANEL sodium 139 mmol/ L 137-14 5 Not Available [facility] (Lab) [address] [place], [address], 05/22/2022 16:48:12 05/23/19 23 05/22/2022 COMPR EHENS JOSÉ ANTONIO METAB OLIC PANEL potassium 4.2 mmol/ L 3.5-5. 1 Not Available [facility] (Lab) [address] [place], [address], 05/22/2022 16:48:12 05/23/19 23 05/22/2022 COMPR EHENS JOSÉ ANTONIO METAB OLIC PANEL chloride 103 mmol/ L 98-107 Not Available [facility] (Lab) [address] [place], [address], 05/22/2022 16:48:12 05/23/19 23 05/22/2022 COMPR EHENS JOSÉ ANTONIO METAB OLIC PANEL carbon dioxide 28 mmol/ L 22-30 Not Available [facility] (Lab) [address] [place], [address], 05/22/2022 16:48:12 05/23/19 23 05/22/2022 COMPR EHENS JOSÉ ANTONIO METAB OLIC PANEL anion gap 12.2 mmol/ L 14-22 low Not Available [facility] (Lab) [address] [place], [address], 05/22/2022 16:48:12 05/23/19 23 05/22/2022 COMPR EHENS JOSÉ ANTONIO METAB OLIC PANEL glucose 92 mg/dL 70-99 Not Available [facility] (Lab) [address] [place], [address], 05/22/2022 16:48:12 05/23/19 23 05/22/2022 COMPR EHENS JOSÉ ANTONIO METAB OLIC PANEL BUN 26 mg/dL 8-19 high Not Available [facility] (Lab) [address] [place], [address], 05/22/2022 16:48:12 05/23/19 23 05/22/2022 COMPR EHENS JOSÉ ANTONIO METAB OLIC PANEL creatinine 1.08 mg/dL 0.66-1 .25 Not Available [facility] (Lab) [address] [place], [address], 05/22/2022 16:48:12 05/23/19 23 05/22/2022 COMPR EHENS JOSÉ ANTONIO METAB OLIC PANEL GFR 51 Refer ence Range : [place] ge GFR Healt hy Adult : >60 [...] or ethni c subgr oups, such as [facility] nics. Outsi de the valid ated [...] able on the F websi te: [email or web address] :[email or web address] rg/pr ofess ional s/kdo qi/gf r_cal culat or Not Available [facility] (Lab) [address] [place], [address], 05/22/2022 16:48:12 05/23/19 23 05/22/2022 COMPR EHENS JOSÉ ANTONIO METAB OLIC PANEL alkaline phosphatase 77 U/L 38-126 Not Available [facility] (Lab) [address] [place], [address], 05/22/2022 16:48:12 05/23/19 23 05/22/2022 COMPR EHENS JOSÉ ANTONIO METAB OLIC PANEL alanine aminotransfe rase 23 U/L 0-35 Not Available [facility] (Lab) [address] [place], [address], 05/22/2022 16:48:12 05/23/19 23 05/22/2022 COMPR EHENS JOSÉ ANTONIO METAB OLIC PANEL aspartate aminotransfe rase 28 U/L 15-37 Not Available [facility] (Lab) [address] [place], [address], 05/22/2022 16:48:12 05/23/19 23 05/22/2022 COMPR EHENS JOSÉ ANTONIO METAB OLIC PANEL bilirubin, total 0.60 mg/dL 0.20-1 .30 Not Available [facility] (Lab) [address] [place], [address], 05/22/2022 16:48:12 05/23/19 23 05/22/2022 COMPR EHENS JOSÉ ANTONIO METAB OLIC PANEL calcium 9.7 mg/dL 8.4-10 .2 Not Available [facility] (Lab) [address] [place], [address], 05/22/2022 16:48:12 05/23/19 23 05/22/2022 COMPR EHENS JOSÉ ANTONIO METAB OLIC PANEL total protein 7.5 g/dL 6.3-8. 2 Not Available [facility] (Lab) [address] [place], [address], 05/22/2022 16:48:12 05/23/19 23 05/22/2022 COMPR EHENS JOSÉ ANTONIO METAB OLIC PANEL albumin 4.7 g/dL 3.0-4. 4 high Not Available [facility] (Lab) [address] [place], [address], 05/22/2022 16:48:12 05/23/19 23 05/22/2022 COMPR EHENS JOSÉ ANTONIO METAB OLIC PANEL globulin 2.8 g/dL 2.6-4. 2 Not Available [facility] (Lab) [address] [place], [address], 05/22/2022 16:48:12 05/23/19 23 05/22/2022 COMPR EHENS JOSÉ ANTONIO METAB OLIC PANEL A/G ratio 1.7 ratio 1.0-2. 0 Not Available [facility] (Lab) [address] [place], [address], 05/22/2022 16:48:12 05/23/19 23 05/22/2022 LIPID PANEL cholesterol 203 mg/dL 140-19 9 high NIH SILVESTRE NSUS RECOM MENDA TION FOR SAUD STERO L: ADULT CHILD LOW RISK: <200 <170 BORDE RLINE : <200- 239 ----- HIGH RISK: >240 >200 Not Available [facility] (Lab) [address] [place], [address], 05/22/2022 16:49:38 05/23/19 23 05/22/2022 LIPID PANEL triglyceride s 105 mg/dL 0-150 NIH SILVESTRE NSUS REPOR T RECOM MENDA TION FOR TRIGL YCERI CHEVY: ADULT CHILD LOW RISK: <150 ----- BODER LINE: 150-1 99 ----- HIGH RISK: >200 ----- Not Available [facility] (Lab) [address] [place], [address], 05/22/2022 16:49:38 05/23/19 23 05/22/2022 LIPID PANEL HDL cholesterol 143 mg/dL 40- Not Available [facility] (Lab) [address] [place], [address], 05/22/2022 16:49:38 05/23/19 23 05/22/2022 LIPID PANEL [...] WILL NOT BE REPOR PETER. Not Available [facility] (Lab) [address] [place], [address], 05/22/2022 16:49:38 03/26/19 24 03/26/2023 CBC/C OMPLE TE BLD COUNT W/DIF F white blood cells 7.4 x10'3 /uL 4.2-10 .8 Not Available [facility] (Lab) [address] [place], [address], 03/26/2023 17:07:46 03/26/19 24 03/26/2023 CBC/C OMPLE TE BLD COUNT W/DIF F red blood cells 4.57 x10'6 /uL 3.80-5 .20 Not Available [facility] (Lab) [address] [place], [address], 03/26/2023 17:07:46 03/26/19 24 03/26/2023 CBC/C OMPLE TE BLD COUNT W/DIF F hemoglobin 13.9 g/dL 12.0-1 5.6 Not Available [facility] (Lab) [address] [place], [address], 03/26/2023 17:07:46 03/26/19 24 03/26/2023 CBC/C OMPLE TE BLD COUNT W/DIF F hematocrit 41.8 % 35.7-4 5.7 Not Available [facility] (Lab) [address] [place], [address], 03/26/2023 17:07:46 03/26/19 24 03/26/2023 CBC/C OMPLE TE BLD COUNT W/DIF F mean red cell volume 91.5 fL 82.0-9 9.0 Not Available [facility] (Lab) [address] [place], [address], 03/26/2023 17:07:46 03/26/19 24 03/26/2023 CBC/C OMPLE TE BLD COUNT W/DIF F mean red cell hemoglobin 30.4 pg 27.0-3 3.0 Not Available [facility] (Lab) [address] [place], [address], 03/26/2023 17:07:46 03/26/19 24 03/26/2023 CBC/C OMPLE TE BLD COUNT W/DIF F mean RBC HGB concentratio n 33.3 g/dL 31.0-3 6.0 Not Available [facility] (Lab) [address] [place], [address], 03/26/2023 17:07:46 03/26/19 24 03/26/2023 CBC/C OMPLE TE BLD COUNT W/DIF F red cell distribution width 13.2 % 11.8-1 5.5 Not Available [facility] (Lab) [address] [place], [address], 03/26/2023 17:07:46 03/26/19 24 03/26/2023 CBC/C OMPLE TE BLD COUNT W/DIF F platelets 224 x10'3 /uL 150-40 0 Not Available [facility] (Lab) [address] [place], [address], 03/26/2023 17:07:46 03/26/19 24 03/26/2023 CBC/C OMPLE TE BLD COUNT W/DIF F mean platelet volume 11.1 fL 9.0-12 .4 Not Available [facility] (Lab) [address] [facility] [place], [address], 03/26/2023 17:07:46 03/26/19 24 03/26/2023 CBC/C OMPLE TE BLD COUNT W/DIF F neutrophils 51.7 % 39.0-7 2.0 Not Available [facility] (Lab) [address] [place], [address], 03/26/2023 17:07:46 03/26/19 24 03/26/2023 CBC/C OMPLE TE BLD COUNT W/DIF F lymphocytes 32.8 % 16.0-4 7.0 Not Available [facility] (Lab) [address] [place], [address], 03/26/2023 17:07:46 03/26/19 24 03/26/2023 CBC/C OMPLE TE BLD COUNT W/DIF F monocytes 11.2 % 5.0-12 .0 Not Available [facility] (Lab) [address] [place], [address], 03/26/2023 17:07:46 03/26/19 24 03/26/2023 CBC/C OMPLE TE BLD COUNT W/DIF F eosinophils 3.5 % 1.0-7. 0 Not Available [facility] (Lab) [address] [place], [address], 03/26/2023 17:07:46 03/26/19 24 03/26/2023 CBC/C OMPLE TE BLD COUNT W/DIF F basophils 0.7 % 0.0-2. 0 Not Available [facility] (Lab) [address] [place], [address], 03/26/2023 17:07:46 03/26/19 24 03/26/2023 CBC/C OMPLE TE BLD COUNT W/DIF F immature granulocytes 0.1 % 0.00-0 .50 Not Available [facility] (Lab) [address] [place], [address], 03/26/2023 17:07:46 03/26/19 24 03/26/2023 CBC/C OMPLE TE BLD COUNT W/DIF F neutrophils, absolute count 3.81 x10'3 /uL 1.5-8. 0 Not Available [facility] (Lab) [address] [place], [address], 03/26/2023 17:07:46 03/26/19 24 03/26/2023 CBC/C OMPLE TE BLD COUNT W/DIF F lymphocytes, absolute count 2.42 x10'3 /uL 1.07-3 .43 Not Available [facility] (Lab) [address] [place], [address], 03/26/2023 17:07:46 03/26/19 24 03/26/2023 CBC/C OMPLE TE BLD COUNT W/DIF F monocytes, absolute count 0.83 x10'3 /uL 0.29-0 .99 Not Available [facility] (Lab) [address] [place], [address], 03/26/2023 17:07:46 03/26/19 24 03/26/2023 CBC/C OMPLE TE BLD COUNT W/DIF F eosinophils, absolute count 0.26 x10'3 /uL 0.02-0 .53 Not Available [facility] (Lab) [address] [place], [address], 03/26/2023 17:07:46 03/26/19 24 03/26/2023 CBC/C OMPLE TE BLD COUNT W/DIF F basophils, absolute count 0.05 x10'3 /uL 0.01-0 .08 Not Available [facility] (Lab) [address] [place], [address], 03/26/2023 17:07:46 03/26/19 24 03/26/2023 CBC/C OMPLE TE BLD COUNT W/DIF F immature granulocytes ,absolute 0.01 x10'3 /uL 0.00-0 .05 Not Available [facility] (Lab) [address] [facility] [facility] [place], [address], 03/26/2023 17:07:46 03/26/19 24 03/26/2023 CBC/C OMPLE TE BLD COUNT W/DIF F nucleated red blood cells 0.0 % -0 Not Available [facility] (Lab) [address] [place], [address], 03/26/2023 17:07:46 03/26/19 24 03/26/2023 CBC/C OMPLE TE BLD COUNT W/DIF F NRBC# 0.00 x10'3 /uL Not Available [facility] (Lab) [address] [place], [address], 03/26/2023 17:07:46 03/26/19 24 03/26/2023 COMPR EHENS JOSÉ ANTONIO METAB OLIC PANEL sodium 141 mmol/ L 137-14 5 Not Available [facility] (Lab) [address] [place], [address], 03/26/2023 17:57:57 03/26/19 24 03/26/2023 COMPR EHENS JOSÉ ANTONIO METAB OLIC PANEL potassium 4.3 mmol/ L 3.5-5. 1 Not Available [facility] (Lab) [address] [place], [address], 03/26/2023 17:57:57 03/26/19 24 03/26/2023 COMPR EHENS JOSÉ ANTONIO METAB OLIC PANEL chloride 107 mmol/ L 98-107 Not Available [facility] (Lab) [address] [place], [address], 03/26/2023 17:57:57 03/26/19 24 03/26/2023 COMPR EHENS JOSÉ ANTONIO METAB OLIC PANEL carbon dioxide 28 mmol/ L 22-30 Not Available [facility] (Lab) [address] [place], [address], 03/26/2023 17:57:57 03/26/19 24 03/26/2023 COMPR EHENS JOSÉ ANTONIO METAB OLIC PANEL anion gap 10.3 mmol/ L 14-22 low Not Available [facility] (Lab) [address] [place], [address], 03/26/2023 17:57:57 03/26/19 24 03/26/2023 COMPR EHENS JOSÉ ANTONIO METAB OLIC PANEL glucose 63 mg/dL 70-99 low Not Available [facility] (Lab) [address] [place], [address], 03/26/2023 17:57:57 03/26/19 24 03/26/2023 COMPR EHENS JOSÉ ANTONIO METAB OLIC PANEL BUN 23 mg/dL 8-19 high Not Available [facility] (Lab) [address] [place], [address], 03/26/2023 17:57:57 03/26/19 24 03/26/2023 COMPR EHENS JOSÉ ANTONIO METAB OLIC PANEL creatinine 1.29 mg/dL 0.66-1 .25 high Not Available [facility] (Lab) [address] [place], [address], 03/26/2023 17:57:57 03/26/19 24 03/26/2023 COMPR EHENS JOSÉ ANTONIO METAB OLIC PANEL GFR 41 Refer ence Range : [place] ge GFR Healt hy Adult : >60 [...] calcu lator is avail able on the [facility] websi te: [email or web address] culat or Not Available [facility] (Lab) [address] [place], [address], 03/26/2023 17:57:57 03/26/19 24 03/26/2023 COMPR EHENS JOSÉ ANTONIO METAB OLIC PANEL alkaline phosphatase 77 U/L 38-126 Not Available [facility] (Lab) [address] [place], [address], 03/26/2023 17:57:57 03/26/19 24 03/26/2023 COMPR EHENS JOSÉ ANTONIO METAB OLIC PANEL alanine aminotransfe rase 17 U/L 0-35 Not Available [facility] (Lab) [address] [place], [address], 03/26/2023 17:57:57 03/26/19 24 03/26/2023 COMPR EHENS JOSÉ ANTONIO METAB OLIC PANEL aspartate aminotransfe rase 23 U/L 15-37 Not Available [facility] (Lab) [address] [place], [address], 03/26/2023 17:57:57 03/26/19 24 03/26/2023 COMPR EHENS JOSÉ ANTONIO METAB OLIC PANEL bilirubin, total 0.10 mg/dL 0.20-1 .30 low Not Available [facility] (Lab) [address] [place], [address], 03/26/2023 17:57:57 03/26/19 24 03/26/2023 COMPR EHENS JOSÉ ANTONIO METAB OLIC PANEL calcium 9.6 mg/dL 8.4-10 .2 Not Available [facility] (Lab) [address] [place], [address], 03/26/2023 17:57:57 03/26/19 24 03/26/2023 COMPR EHENS JOSÉ ANTONIO METAB OLIC PANEL total protein 6.6 g/dL 6.3-8. 2 Not Available [facility] (Lab) [address] [place], [address], 03/26/2023 17:57:57 03/26/19 24 03/26/2023 COMPR EHENS JOSÉ ANTONIO METAB OLIC PANEL albumin 4.1 g/dL 3.0-4. 4 Not Available [facility] (Lab) [address] [place], [address], 03/26/2023 17:57:57 03/26/19 24 03/26/2023 COMPR EHENS JOSÉ ANTONIO METAB OLIC PANEL globulin 2.5 g/dL 2.6-4. 2 low Not Available [facility] (Lab) [address] [place], [address], 03/26/2023 17:57:57 03/26/19 24 03/26/2023 COMPR EHENS JOSÉ ANTONIO METAB OLIC PANEL A/G ratio 1.6 ratio 1.0-2. 0 Not Available [facility] (Lab) [address] [place], [address], 03/26/2023 17:57:57 03/26/19 24 03/26/2023 LIPID PANEL cholesterol 187 mg/dL 140-19 9 NIH SILVESTRE NSUS RECOM MENDA TION FOR SAUD STERO L: ADULT CHILD LOW RISK: <200 <170 BORDE RLINE : <200- 239 ----- HIGH RISK: >240 >200 Not Available [facility] (Lab) [address] [place], [address], 03/26/2023 17:58:00 03/26/19 24 03/26/2023 LIPID PANEL triglyceride s 215 mg/dL 0-150 high NIH SILVESTRE NSUS REPOR T RECOM MENDA TION FOR TRIGL YCERI CHEVY: ADULT CHILD LOW RISK: <150 ----- BODER LINE: 150-1 99 ----- HIGH RISK: >200 ----- Not Available [facility] (Lab) [address] [place], [address], 03/26/2023 17:58:00 03/26/19 24 03/26/2023 LIPID PANEL HDL cholesterol 107 mg/dL 40- Not Available [facility] (Lab) [address] [place], [address], 03/26/2023 17:58:00 03/26/19 24 03/26/2023 LIPID PANEL [...] WILL NOT BE REPOR PETER. Not Available [facility] (Lab) [address] [place], [address], 03/26/2023 17:58:00 12/08/19 22 12/06/2021 scree manisha fregoso t jay, bilat [facility] [address] [place] [address] [phone] Psychiatrictameka stanford Name: JENNI BERNAL Access ion #: [id number] Sex: F : 1955 1 Locati on: RAD Attend ing Physic celso: LIA PATEL Orderi ng Physic celso: LIA PATEL Exam Date: 3:42 PM Exam Name: MG DELCID BREAST JAY BILAT Admitt ing Diagno sis(es ): MAMMOG LUARA REPORT - FINAL EXAM: MG DELCID BREAST [...] haley ectura l Page 1 of 2 [facility] Ashia stanford Name: JENNI BERNAL Access ion #: [id number] Sex: F : 1955 1 Exam [...] ed prompt ly to the ashia stanford's [facility] er. A negati ve mammog laura report [...] 9:54 AM (CT) Page 2 of 2 [id number] [facility] (Imaging) [address] [place], [address], 05/08/2022 05:06:44 Result Notes None recorded. Problems Name Problem SNOMED Code Status Onset Date Resolution Date Notes Provider Name and Address Organization Details Recorded Time Vitamin D below reference range 895399337 Active 2020 Not Available [facility] 4 20:25:12 Chronic back pain 168309854 Active 2019 Not Available [facility] 4 20:25:12 Dyslipidemia 738210245 Active 2020 Not Available [facility] 4 20:25:12 Easy bruising 575011171 Active 2021 Not Available [facility] 4 20:25:12 Cough 24073791 Active 2021 Not Available [facility] 4 20:25:12 Respiratory syncytial virus infection 68011243 Active 2021 Not Available [facility] 4 20:25:12 Essential hypertension 85522887 Active 2019 Not Available [facility] 4 20:25:12 Problem Notes None recorded. Procedures Surgical History Date Name Laterality Status Provider Name and Address Organization Details Recorded Time 07/08/20 21 Most Recent Bone Density completed Not Available [facility] 05/08/2022 04:41:34 09/07/19 16 Date of Last Colonoscopy completed Not Available [facility] 05/08/2022 04:41:33 total replacement of hip completed Not Available [facility] 05/08/2022 04:41:40 Tonsillectomy completed Not Available [facility] 05/08/2022 04:41:40 Imaging Results Imaging Date Name Status LastModified by Organiz ation Details LastModified Time 12/06/2021 screening breast jay, bilat completed [id number] [facility] (Imaging) [address] [facility], [place], [address], 05/08/2022 05:06:44 Procedure Notes None recorded. Medical [...] administe red by the provider 01/09 completed [facility]: 0003- [id number]- [id number] Not Available Not Available [...] administe red by the provider 01/09 completed [facility]: [phone]- [phone] Not Available Not Available [...] Date Recorded Body mass index (BMI) Body mass index (BMI) Body height Body height Pain severity - 0-10 verbal numeric rating [Score] - Reported Heart rate Heart rate Body temperature Body temperature Body weight Body weight Systolic blood pressure Diastolic blood pressure Systolic blood pressure Diastolic blood pressure Provider Name and Address Organization Details Last Updated DateTime 3 31.5 kg/m2 30.5 kg/m2 157.48 cm 157.48 cm 0 72 /min 67 /min 97.4 [degF] 98.2 [degF] 75858.8 9 g 72519.9 3 g 124 mm[Hg] 70 mm[Hg] 138 mm[Hg] 74 mm[Hg] Not Available [facility] 3 04:45:19 Date Recorded Body height Body mass index (BMI) Body weight Body temperature Heart rate Systolic blood pressure Diastolic blood pressure Provider Name and Address Organization Details Last Updated DateTime 3 157.48 cm 31.1 kg/m2 32547.7 g 98.4 [degF] 66 /min 124 mm[Hg] 68 mm[Hg] Ana carvalho RN [place] [employer] [facility] 3 14:49:05 Date Recorded Body height Body mass index (BMI) Body weight Body temperature Heart rate Systolic blood pressure Diastolic blood pressure Provider Name and Address Organization Details Last Updated DateTime 3 157.48 cm 30.7 kg/m2 41115.5 2 g 98.1 [degF] 68 /min 140 mm[Hg] 84 mm[Hg] COLLEEN Pollock [place] [employer] [facility] [employer] 3 14:37:41 Date Recorded Body height Body mass index (BMI) Body weight Body temperature Heart rate Respiratory rate Oxygen saturation Oxygen saturation in Arterial blood by Pulse oximetry Pain severity - 0-10 verbal numeric rating [Score] - Reported Systolic blood pressure Diastolic blood pressure Provider Name and Address Organization Details Last Updated DateTime 4 157.48 cm 31.6 kg/m2 41015.0 4 g 98.4 [degF] 71 /min 20 /min 98 % 98 % 0 148 mm[Hg] 82 mm[Hg] Julieta Youssef RN [facility] [employer] 4 14:54:56 Social History Question Answer Notes LastModified by Organization Details LastModified Time Tobacco Smoking Status Former Smoker quit 2009 Hetal [employer] [facility] [employer] 11/20/2022 14:23:29 Do You Have An Advance Directive? No [id number] Information not available 05/08/2022 What Is Your Level Of Alcohol Consumption? None [id number] Information not available 05/08/2022 Are You Blind Or Do You Have Difficulty Seeing? Yes Wears Glasses Information not available 11/20/2022 What Is Your Level Of Caffeine Consumption? Occasional [id number] [id number] Information not available 05/08/2022 How Much Tobacco Do You Chew? None [id number] [id number] Information not available 05/08/2022 In The 14 [...] Of Diet Are You Following? REGULAR [id number] [id number] Information not available 05/08/2022 Which Illicit Or Recreational Drugs Have You Used? None Information not available 11/20/2022 Do You Or Have You Ever Used E-cigarettes Or Vape? Never Used Electronic Cigarettes Information not available 11/20/2022 What Is The Highest Grade Or Level Of School You Have Completed Or The Highest Degree You Have Received? 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 No Information not available 11/20/2022 What Was The Date Of Your Most Recent Tobacco Screening? 11/20/2022 [email or web address] Information not available 11/20/2022 Do You Have Any Pets? Yes Information not available 11/20/2022 What Is Your Relationship Status? [id number] Information not available 05/08/2022 Do You Use [...] Smokeless Tobacco? Never Used Smokeless Tobacco [id number].0301 [id number] Information not available 05/08/2022 Are There Any Smokers In Your House? No Information not available 11/20/2022 How Much Tobacco Do You Smoke? No [id number].0301 [id number] Information not available 05/08/2022 What Types Of Sporting Activities Do You Participate In? None Information not available 11/20/2022 Do You Feel Stressed (tense, Restless, Nervous, Or Anxious, Or Unable To Sleep At Night)? [id number] Information not available 11/20/2022 Do You Use [...] 11/20/2022 What is your exercise level? Occasional [id number] Information not available 05/08/2022 Mental Status Question Answer Note LastModified by Organization D etails LastModified Time Do you have difficulty concentrating, remembering or making decisions? No Information no t available 11/20/2022 Family History Relationship Description Onset Age of this Age Resolved Age Notes LastModified by Organization Details LastModified Time Mother Renal cell carcinoma Not available 2022 14:23:26 Mother Hypertensive disorder [id number] Not available 05/08/2022 04:41:46 Mother Kidney disease [id number] Not available 05/08/2022 04:41:46 Father Hypertensive disorder [id number] Not available 05/08/2022 04:41:46 Medical History Condition [...] ARTERY DISEASE (CAD) N ADDICTION CONCERNS N Impotence N ENDOMETRIOSIS N USE OF BLOOD THINNERS N SKIN [...] APNEA N CHICKENPOX N INFECTIOUS DISEASE N PROSTATE N HEART ARRHYTHMIA N INSOMNIA N HIGH CHOLESTEROL / HYPERLIPIDEMIA N EYE PROBLEMS N HYPERTHYROIDISM N EDEMA N CHRONIC PAIN SYNDROME N HYPOTHYROIDISM N CONSTIPATION N CAROTID BLOCKAGE N BACK / NECK PROBLEMS Y HAVE YOU BEEN HOSPITALIZED OR SEEN IN [facility] IN THE PAST YEAR ? N ATHEROSCLEROSIS N BREAST PROBLEMS N DIALYSIS N ECZEMA N OSTEOPOROSIS N ARTHRITIS Y APPENDICITIS N DIABETES, TYPE N BAD TEETH N ENT N HEARTBURN / REFLUX N AUTISM SPECTRUM DISORDER (ASD) N HEPATITIS / LIVER DISEASE N GOUT N SLEEP DISORDER N ALZHEIMER'S DISEASE N Brain Problems N DEMENTIA N HERPES N SEIZURES/EPILEPSY N HEADACHES/MIGRAINES N VASCULAR DISEASE N PACEMAKER N Blood Disorder N DIZZINESS N HEART DISEASE/HEART PROBLEMS N KIDNEY DISEASE N MULTIPLE SCLEROSIS N CANCER: SPECIFY N CARDIAC ARRHYTHMIA N ATRIAL FIBRILLATION N Gall Stones N [...] mcg/0.3 mL dose 1 completed Not Available [facility] 03/28/2023 20:25:12 COVID-19, mRNA, LNP-S, PF, 30 mcg/0.3 mL dose 2 completed Not Available [facility] 03/28/2023 20:25:12 Influenza, high-dose, quadrivalent, PF 1 completed Not Available [facility] 03/28/2023 20:25:12 COVID-19, mRNA, LNP-S, PF, 30 mcg/0.3 mL dose 1 completed Not Available [facility] 03/28/2023 20:25:12 COVID-19, mRNA, LNP-S, PF, 30 mcg/0.3 mL dose 1 completed Not Available [facility] 03/28/2023 20:25:12 Influenza, split virus, trivalent, preservative 0 completed Not Available [facility] 03/28/2023 20:25:13 Influenza, split virus, quadrivalent, preservative 9 completed Not Available [facility] 03/28/2023 20:25:12 Pneumococcal conjugate PCV 13 1 completed Not Available [facility] 03/28/2023 20:25:12 Past Encounters Encounter ID Performer Location Encounter Start Date Encounter Closed Date Diagnosis/Indication Diagnosis SNOMED-CT Code Diagnosis ICD10 Code Diagnosis Note [id number] [facility] [address] [facility] [address] [place] [address] 08/04/2020 00:00:00 08/06/2020 15:04:33 [id number] [facility] [place] [address] [place] [address] 09/05/2020 00:00:00 09/05/2020 10:57:11 [id number] [facility] [address] [facility] [address] [address] 09/12/2020 00:00:00 09/17/2020 22:03:02 [id number] [facility] [place] [address] [place] [address] 10/03/2020 00:00:00 10/03/2020 13:25:59 [id number] [facility] [place] [address] [place] [address] 11/07/2020 00:00:00 11/07/2020 10:41:52 [id number] [facility] [place] [address] [place] [address] 12/19/2020 00:00:00 12/19/2020 09:20:18 [id number] [facility] [address] [address] 01/09/2021 00:00:00 01/10/2021 20:49:56 [id number] [facility] [address] [facility] [address] [address] 05/21/2021 00:00:00 05/27/2021 21:22:38 [id number] [facility] [address] [place] [address] [address] [address] 11/28/2021 00:00:00 01/07/2022 22:07:09 [id number] John Patel MD [facility] [address] [address] 05/22/2022 14:35:05 05/22/2022 15:36:46 Essential hypertension 75050361 I10 Chronic back pain 687783 002 M54.9 Vitamin D below reference range 682901276 E55.9 Dyslipidemia 767891744 E 78.5 [id number] John Patel MD [facility] [address] [place] [address] [address] [address] 11/20/2022 14:22:23 11/20/2022 15:02:35 Dyslipidemia 147151419 E78.5 Vitamin D below reference range 700728491 E55.9 Essential hypertension 67819733 I10 [id number] John Patel MD [facility] [address] [place] [address] [address] [address] 03/26/2023 14:38:32 03/26/2023 15:55:23 Dyslipidemia 582160721 E78.5 Essential hypertension [id number] I10 Chronic back pain [id number] 002 M54.9 Health Concerns Section Related Observation LastModified by Organization Detai ls LastModified Time None Recorded Concern Status LastModified by Organization Details LastModified Time None Recorded Advance Directives Directive N: Payers Encounter Date Sequence Insurance Name Policy Number Policy [place] Covered Member ID [place] Member ID Guarantor Name 05/22/2022 1 [employer] (MEDICARE REPLACEMENT/A DVANTAGE - HMO) [id number] Ree Harris [id number] Ree Guerreroedemadiane 11/20/2022 1 [employer] (MEDICARE REPLACEMENT/A DVANTAGE - HMO) [id number] Ree Harris [id number] Ree Guerreroedemadiane 03/26/2023 1 [employer] (MEDICARE REPLACEMENT/A DVANTAGE - HMO) [id number] Ree Guerreroedemann [id number] Ree Harris Notes Date Note Type Note Provider Name and Address Organization Details Recorded Time 05/22/2022 text/html Hypertension no headache no dizzinesspain seemed control with gabapentinlow vitamin-D level take dtqs-cbi-kpuakinlpf lipidemia low-fat diet atorvastatin John Patel MD [address], [place], [address], [employer] 05/22/2022 21:13:59 11/20/2022 text/html Hypertension no headache no dizzinesspain seemed control with gabapentinlow vitamin-D level take knul-mly-hwwoycohjo lipidemia low-fat diet atorvastatin John Patel MD [address], [place], [address], [employer] 12/03/2022 10:42:43 03/26/2023 text/html Dyslipidemia wale ing the atorvastatin with no side effects does try to watch her intake of fat. Hypertension no chest pain or headache.Chronic back pain appears stable no bowel or bladder problems John Patel MD [address], [place], [address], [employer] 04/05/2023 15:42:12 OBGyn Episode No OBEpisode recorded.
--- OUTSIDE RECORDS SUMMARY | 2024-04-28 08:12 | XMS_ITS | Referral Summary ---
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[employer]ER Gender Identity Female 08/17/2023 2:33 PM CDT Sexual Orientation Not on file Last Filed Vital Signs Vital Sign Reading Time Taken Comments Blood Pressure 132/80 08/17/2023 4:52 PM CDT Pulse 98 08/17/2023 4:52 PM CDT Temperature 36.8 C (98.2 F) 08/17/2023 4:52 PM CDT Respiratory Rate 20 08/17/2023 4:52 PM CDT Oxygen Saturation 99% 08/17/2023 4:52 PM CDT Inhaled Oxygen Concentration - - Weight 77.1 kg (170 lb) 08/17/2023 4:52 PM CDT Height 157.5 cm (5' 2 ) 08/17/2023 4:52 PM CDT Body Mass Index 31.09 08/17/2023 4:52 PM CDT Plan of Treatment Not on file Insurance MEDICARE [facility] Address: [address] [address] [place] [address] MEDICARE [facility] Address: [address] [address] [place] [address] Care Teams Laboratory Assistant Relationship Specialty Start Date End Date No, Physician PCP - General 09/20/22
--- OUTSIDE RECORDS SUMMARY | 2024-04-28 08:12 | XMS_ITS | Data Portability ---
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 Bone density. Colonoscopy. Continue current therapy. Follow up 4 months. [email or web address] Not available 11/22/2023 21:31:37 03/24/2024 03/24/2024 assessments [...] is scheduled for May of this year [email or web address] Not available 03/27/2024 21:05:33 Plan of Treatment Reminders Order Date Submit Date Provider Last Modified By Organization Details Last Modified Time Details Appointments ANY 15 2024 02:00P Israel Patel MD Not available Not available Not available Lab lipid panel, serum 2024 025 [facility], [address] [facility], [address], [place], [address], 03/25/2024 08:25:27 CMP, serum or plasma 2024 025 [facility], [address], [address], [place], [address], 03/25/2024 08:25:28 CBC w/ auto diff 2024 025 [facility], [address], [address], [place], [address], 03/25/2024 08:25:30 CMP, serum or plasma 2023 024 [facility], [address], [address], [place], [address], 05/22/2023 11:14:46 CBC w/ auto diff 2023 024 [facility], [address] [place], [place] [address], [address], [place], [address], 05/22/2023 11:14:47 lipid panel, serum 2023 024 [facility], [address] [place], [place] [address]v[address], [address], [place], [address], 05/22/2023 11:14:46 Referral orthope dic surgeon referra l 2023 024 darwin Ramirez MD, [address], [place], [address], 04/12/2024 17:18:29 gastroe nterolo gist referra l - Please call patient to kathy ruizt. Thank you 2018 019 ioana Talavera MD, [address] [facility], [place], [address], 12/31/2018 16:05:06 Procedures colonos copy screeni ng (PROC) 2023 024 [facility], [address], [address], [place], [address], 02/19/2024 18:11:33 Surgeries None recorde d. Imaging MAMMO, screeni ng, digital , bilater al 2023 024 [facility] (Imaging), [address], [place], [address], 04/09/2024 09:09:58 bone density 2023 024 [facility] (Imaging), [address], [place], [address], 04/20/2024 09:18:08 Medication Orders baclofe n 10 mg tablet 2018 019 [facility] #[id number], [address], [place], [id number], 05/21/2023 12:50:56 lisinop ril 40 mg tablet 2018 019 [facility] #22600, [address], [place], [id number], 11/19/2018 10:14:16 calcium 600 mg (as carbona te)-vit camargo D3 20 mcg (800 unit) tablet 2018 019 [facility] #06546, [address] [facility] [place], [place], [id number], 05/21/2023 12:51:02 gabapen tin 300 mg capsule 2018 019 [facility] #45925, [address], [place], [place], [id number], 11/19/2018 10:14:34 baclofe n 10 mg tablet 2018 019 [facility] #69603, [address], [place], [place], [id number], 05/21/2023 12:50:56 lisinop ril 40 mg tablet 2018 019 [facility] #16121, [address], [place], [place], [id number], 05/19/2018 10:22:02 calcium 600 mg (as carbona te)-vit camargo D3 20 mcg (800 unit) tablet 2018 019 [facility] #91624, [address] , [place], [place], [id number], 05/21/2023 12:51:02 raloxif jakub 60 mg tablet 2018 019 [facility] #10052, [address] [place], [place], [id number], 05/21/2023 12:51:20 gabapen tin 300 mg capsule 2018 019 [facility]57626, [address] , [place], [place], [id number], 05/19/2018 10:21:57 Patient TargetsNo targets recorded. Patient Instructions Encounter Date Encounter Id Patient Instructions Last Modified By Organization Details Last Modified Time 05/19/2018 [id number] knee arthritis: care instructions [facility] Not available 05/19/2018 10:21:49 hip arthritis: care instructions [facility] Not available 05/19/2018 10:21:49 osteoarthritis: care instructions [facility] Not available 05/19/2018 10:21:49 11/19/2018 [id number] knee arthritis: care instructions [facility] Not available 11/19/2018 10:14:11 hip arthritis: care instructions [facility] Not available 11/19/2018 10:14:11 osteoarthritis: care instructions [facility] Not available 11/19/2018 10:14:11 11/19/2023 [id number] A healthy lifestyle: care instructions [email or web address] Not available 11/19/2023 16:00:33 03/24/2024 [id number] A healthy lifestyle: care instructions [email or web address] Not available 03/24/2024 17:26:38 Medicare Wellnes s Preventive Checklist [email or web address] Not available 03/24/2024 17:26:38 Reason for Referral Human Resources Advisor Referral for Screening for malignant neoplasm of [...] 169 mg/dL 100-19 9 Not Available [facility] ([facility]) [address] [place], [address], 05/22/2023 11:14:46 05/21/19 24 05/22/2023 LIPID PANEL triglyceride s 169 mg/dL 0-149 above high normal Not Available [facility] ([facility]) [address] [place], [address], 05/22/2023 11:14:46 05/21/19 24 05/22/2023 LIPID PANEL HDL cholesterol 85 mg/dL >39 Not Available [facility]) [address] [place], [address], 05/22/2023 11:14:46 05/21/19 24 05/22/2023 LIPID PANEL VLDL cholesterol marquis 27 mg/dL 5-40 Not Available [facility]) [address] [place], [address], 05/22/2023 11:14:46 05/21/19 24 05/22/2023 LIPID PANEL LDL chol calc ([facility]) 57 mg/dL 0-99 Not Available [facility]) [address] [facility], [place], [address], 05/22/2023 11:14:46 05/21/19 24 05/22/2023 COMP. METAB OLIC PANEL (14) glucose 78 mg/dL 70-99 Not Available [facility] ([facility]) [address] [facility] [place], [address], 05/22/2023 11:14:46 05/21/19 24 05/22/2023 COMP. METAB OLIC PANEL (14) BUN 17 mg/dL 8-27 Not Available [facility] ([facility]) [address] [facility] [place], [address], 05/22/2023 11:14:46 05/21/19 24 05/22/2023 COMP. METAB OLIC PANEL (14) creatinine 1.21 mg/dL 0.57-1 .00 above high normal Not Available [facility] ([facility]) [address] [facility], [place], [address], 05/22/2023 11:14:46 05/21/19 24 05/22/2023 COMP. METAB OLIC PANEL (14) eGFR 49 mL/mi n/1.7 3 >59 below low normal Not Available [facility] ([facility]) [address] [facility], [place], [address], 05/22/2023 11:14:46 05/21/19 24 05/22/2023 COMP. METAB OLIC PANEL (14) BUN/creatini ne ratio 14 12-28 Not Available [facility] ([facility]) [address] [facility] [place], [address], 05/22/2023 11:14:46 05/21/19 24 05/22/2023 COMP. METAB OLIC PANEL (14) sodium 141 mmol/ L 134-14 4 Not Available [facility] ([facility]) [address] [facility] [place], [address], 05/22/2023 11:14:46 05/21/19 24 05/22/2023 COMP. METAB OLIC PANEL (14) potassium 4.9 mmol/ L 3.5-5. 2 Not Available [facility] ([facility]) [address] [facility], [place], [address], 05/22/2023 11:14:46 05/21/19 24 05/22/2023 COMP. METAB OLIC PANEL (14) chloride 103 mmol/ L 96-106 Not Available [facility] ([facility]) [address] [facility], [place], [address], 05/22/2023 11:14:46 05/21/19 24 05/22/2023 COMP. METAB OLIC PANEL (14) carbon dioxide, total 24 mmol/ L 20-29 Not Available [facility] ([facility]) [address] [facility], [place], [address], 05/22/2023 11:14:46 05/21/19 24 05/22/2023 COMP. METAB OLIC PANEL (14) calcium 9.8 mg/dL 8.7-10 .3 Not Available [facility] ([facility]) [address] [facility], [place], [address], 05/22/2023 11:14:46 05/21/19 24 05/22/2023 COMP. METAB OLIC PANEL (14) protein, total 6.8 g/dL 6.0-8. 5 Not Available [facility] ([facility]) [address] [facility], [place], [address], 05/22/2023 11:14:46 05/21/19 24 05/22/2023 COMP. METAB OLIC PANEL (14) albumin 4.3 g/dL 3.9-4. 9 Not Available [facility] ([facility]) [address] [facility], [place], [address], 05/22/2023 11:14:46 05/21/19 24 05/22/2023 COMP. METAB OLIC PANEL (14) globulin, total 2.5 g/dL 1.5-4. 5 Not Available [facility] ([facility]) [address] [place], [address], 05/22/2023 11:14:46 05/21/19 24 05/22/2023 COMP. METAB OLIC PANEL (14) A/G ratio 1.7 1.2-2. 2 Not Available [facility] ([facility]) [address] [place], [address], 05/22/2023 11:14:46 05/21/19 24 05/22/2023 COMP. METAB OLIC PANEL (14) bilirubin, total 0.3 mg/dL 0.0-1. 2 Not Available [facility] ([facility]) [address] [place], [address], 05/22/2023 11:14:46 05/21/19 24 05/22/2023 COMP. METAB OLIC PANEL (14) alkaline phosphatase 88 IU/L 44-121 Not Available [facility]) [address] [place], [address], 05/22/2023 11:14:46 05/21/19 24 05/22/2023 COMP. METAB OLIC PANEL (14) AST (SGOT) 24 IU/L 0-40 Not Available [facility] ([facility]) [address] [place], [address], 05/22/2023 11:14:46 05/21/19 24 05/22/2023 COMP. METAB OLIC PANEL (14) ALT (SGPT) 14 IU/L 0-32 Not Available [facility] ([facility]) [address] [place], [address], 05/22/2023 11:14:46 05/21/19 24 05/22/2023 CBC WITH DIFFE RENTI AL/PL ATELE T WBC 6.2 x10e3 /uL 3.4-10 .8 Not Available [facility] ([facility]) [address] [facility], [place], [address], 05/22/2023 11:14:47 05/21/19 24 05/22/2023 CBC WITH DIFFE RENTI AL/PL ATELE T RBC 4.90 x10e6 /uL 3.77-5 .28 Not Available [facility] ([facility]) [address] [facility], [place], [address], 05/22/2023 11:14:47 05/21/19 24 05/22/2023 CBC WITH DIFFE RENTI AL/PL ATELE T hemoglobin 14.4 g/dL 11.1-1 5.9 Not Available [facility] ([facility]) [address] [facility], [place], [address], 05/22/2023 11:14:47 05/21/19 24 05/22/2023 CBC WITH DIFFE RENTI AL/PL ATELE T hematocrit 43.2 % 34.0-4 6.6 Not Available [facility] ([facility]) [address] [facility], [place], [address], 05/22/2023 11:14:47 05/21/19 24 05/22/2023 CBC WITH DIFFE RENTI AL/PL ATELE T MCV 88 fL 79-97 Not Available [facility] ([facility]) [address] [place], [address], 05/22/2023 11:14:47 05/21/19 24 05/22/2023 CBC WITH DIFFE RENTI AL/PL ATELE T MCH 29.4 pg 26.6-3 3.0 Not Available [facility] ([facility]) [address] [facility], [place], [address], 05/22/2023 11:14:47 05/21/19 24 05/22/2023 CBC WITH DIFFE RENTI AL/PL ATELE T MCHC 33.3 g/dL 31.5-3 5.7 Not Available [facility] ([facility]) [address] [facility], [place], [address], 05/22/2023 11:14:47 05/21/19 24 05/22/2023 CBC WITH DIFFE RENTI AL/PL ATELE T RDW 13.2 % 11.7-1 5.4 Not Available [facility] ([facility]) [address] [facility], [place], [address], 05/22/2023 11:14:47 05/21/19 24 05/22/2023 CBC WITH DIFFE RENTI AL/PL ATELE T platelets 211 x10e3 /uL 150-45 0 Not Available [facility] ([facility]) [address] [facility], [place], [address], 05/22/2023 11:14:47 05/21/19 24 05/22/2023 CBC WITH DIFFE RENTI AL/PL ATELE T neutrophils 54 % notest ab. Not Available [facility] ([facility]) [address] [facility], [place], [address], 05/22/2023 11:14:47 05/21/19 24 05/22/2023 CBC WITH DIFFE RENTI AL/PL ATELE T lymphs 31 % notest ab. Not Available [facility] ([facility]) [address] [facility], [place], [address], 05/22/2023 11:14:47 05/21/19 24 05/22/2023 CBC WITH DIFFE RENTI AL/PL ATELE T monocytes 12 % notest ab. Not Available [facility] ([facility]) [address] [place], [address], 05/22/2023 11:14:47 05/21/19 24 05/22/2023 CBC WITH DIFFE RENTI AL/PL ATELE T eos 2 % notest ab. Not Available [facility] ([facility]) [address] [facility], [place], [address], 05/22/2023 11:14:47 05/21/19 24 05/22/2023 CBC WITH DIFFE RENTI AL/PL ATELE T basos 1 % notest ab. Not Available [facility] ([facility]) [address] [facility], [place], [address], 05/22/2023 11:14:47 05/21/19 24 05/22/2023 CBC WITH DIFFE RENTI AL/PL ATELE T neutrophils (absolute) 3.4 x10e3 /uL 1.4-7. 0 Not Available [facility] ([facility]) [address] [facility], [place], [address], 05/22/2023 11:14:47 05/21/19 24 05/22/2023 CBC WITH DIFFE RENTI AL/PL ATELE T lymphs (absolute) 1.9 x10e3 /uL 0.7-3. 1 Not Available [facility] ([facility]) [address] [facility], [place], [address], 05/22/2023 11:14:47 05/21/19 24 05/22/2023 CBC WITH DIFFE RENTI AL/PL ATELE T monocytes(ab solute) 0.7 x10e3 /uL 0.1-0. 9 Not Available [facility] ([facility]) [address] [facility], [place], [address], 05/22/2023 11:14:47 05/21/19 24 05/22/2023 CBC WITH DIFFE RENTI AL/PL ATELE T eos (absolute) 0.1 x10e3 /uL 0.0-0. 4 Not Available [facility] ([facility]) [address] [facility], [place], [address], 05/22/2023 11:14:47 05/21/19 24 05/22/2023 CBC WITH DIFFE RENTI AL/PL ATELE T baso (absolute) 0.0 x10e3 /uL 0.0-0. 2 Not Available [facility] ([facility]) [address] [facility], [place], [address], 05/22/2023 11:14:47 05/21/19 24 05/22/2023 CBC WITH DIFFE RENTI AL/PL ATELE T immature granulocytes 0 % notest ab. Not Available [facility] ([facility]) [address] [facility], [place], [address], 05/22/2023 11:14:47 05/21/19 24 05/22/2023 CBC WITH DIFFE RENTI AL/PL ATELE T immature grans (abs) 0.0 x10e3 /uL 0.0-0. 1 Not Available [facility] ([facility]) [address] [facility], [place], [address], 05/22/2023 11:14:47 03/24/19 25 03/25/2024 LIPID PANEL cholesterol, total 186 mg/dL 100-19 9 Not Available [facility] ([facility]) [address] [facility], [place], [address], 03/25/2024 08:25:27 03/24/19 25 03/25/2024 LIPID PANEL triglyceride s 130 mg/dL 0-149 Not Available [facility] ([facility]) [address] [facility], [place], [address], 03/25/2024 08:25:27 03/24/19 25 03/25/2024 LIPID PANEL HDL cholesterol 103 mg/dL >39 Not Available [facility]) [address] [facility], [place], [address], 03/25/2024 08:25:27 03/24/19 25 03/25/2024 LIPID PANEL VLDL cholesterol marquis 21 mg/dL 5-40 Not Available [facility]) [address] [facility], [place], [address], 03/25/2024 08:25:27 03/24/19 25 03/25/2024 LIPID PANEL LDL chol calc ([facility]) 62 mg/dL 0-99 Not Available [facility]) [address] [place], [address], 03/25/2024 08:25:27 03/24/19 25 03/25/2024 COMP. METAB OLIC PANEL (14) glucose 68 mg/dL 70-99 below low normal Not Available [facility] ([facility]) [address] [place], [address], 03/25/2024 08:25:28 03/24/19 25 03/25/2024 COMP. METAB OLIC PANEL (14) BUN 13 mg/dL 8-27 Not Available [facility] ([facility]) [address] [place], [address], 03/25/2024 08:25:28 03/24/19 25 03/25/2024 COMP. METAB OLIC PANEL (14) creatinine 1.03 mg/dL 0.57-1 .00 above high normal Not Available [facility] ([facility]) [address] [place], [address], 03/25/2024 08:25:28 03/24/19 25 03/25/2024 COMP. METAB OLIC PANEL (14) eGFR 59 mL/mi n/1.7 3 >59 below low normal Not Available [facility] ([facility]) [address] [place], [address], 03/25/2024 08:25:28 03/24/19 25 03/25/2024 COMP. METAB OLIC PANEL (14) BUN/creatini ne ratio 13 12-28 Not Available [facility] ([facility]) [address] [place], [address], 03/25/2024 08:25:28 03/24/19 25 03/25/2024 COMP. METAB OLIC PANEL (14) sodium 144 mmol/ L 134-14 4 Not Available [facility] ([facility]) [address] [facility] [place], [address], 03/25/2024 08:25:28 03/24/19 25 03/25/2024 COMP. METAB OLIC PANEL (14) potassium 4.6 mmol/ L 3.5-5. 2 Not Available [facility] ([facility]) [address] [facility] [place], [address], 03/25/2024 08:25:28 03/24/19 25 03/25/2024 COMP. METAB OLIC PANEL (14) chloride 105 mmol/ L 96-106 Not Available [facility] ([facility]) [address] [facility] [place], [address], 03/25/2024 08:25:28 03/24/19 25 03/25/2024 COMP. METAB OLIC PANEL (14) carbon dioxide, total 26 mmol/ L 20-29 Not Available [facility] ([facility]) [address] [facility] [place], [address], 03/25/2024 08:25:28 03/24/19 25 03/25/2024 COMP. METAB OLIC PANEL (14) calcium 9.6 mg/dL 8.7-10 .3 Not Available [facility] ([facility]) [address] [facility] [place], [address], 03/25/2024 08:25:28 03/24/19 25 03/25/2024 COMP. METAB OLIC PANEL (14) protein, total 6.7 g/dL 6.0-8. 5 Not Available [facility] ([facility]) [address] [facility] [place], [address], 03/25/2024 08:25:28 03/24/19 25 03/25/2024 COMP. METAB OLIC PANEL (14) albumin 4.5 g/dL 3.9-4. 9 Not Available [facility] ([facility]) [address] [facility], [place], [address], 03/25/2024 08:25:28 03/24/19 25 03/25/2024 COMP. METAB OLIC PANEL (14) globulin, total 2.2 g/dL 1.5-4. 5 Not Available [facility] ([facility]) [address] [facility], [place], [address], 03/25/2024 08:25:28 03/24/19 25 03/25/2024 COMP. METAB OLIC PANEL (14) bilirubin, total 0.3 mg/dL 0.0-1. 2 Not Available [facility] ([facility]) [address] [facility], [place], [address], 03/25/2024 08:25:28 03/24/19 25 03/25/2024 COMP. METAB OLIC PANEL (14) alkaline phosphatase 77 IU/L 44-121 Not Available [facility]) [address] [facility], [place], [address], 03/25/2024 08:25:28 03/24/19 25 03/25/2024 COMP. METAB OLIC PANEL (14) AST (SGOT) 19 IU/L 0-40 Not Available [facility] ([facility]) [address] [place], [address], 03/25/2024 08:25:28 03/24/19 25 03/25/2024 COMP. METAB OLIC PANEL (14) ALT (SGPT) 13 IU/L 0-32 Not Available [facility] ([facility]) [address] [place], [address], 03/25/2024 08:25:28 03/24/19 25 03/25/2024 CBC WITH DIFFE RENTI AL/PL ATELE T WBC 7.3 x10e3 /uL 3.4-10 .8 Not Available [facility] ([facility]) [address] [place], [address], 03/25/2024 08:25:30 03/24/1903/25/2024 CBC WITH DIFFE RENTI AL/PL ATELE T RBC 4.88 x10e6 /uL 3.77-5 .28 Not Available [facility] ([facility]) [address] [facility], [place], [address], 03/25/2024 08:25:30 03/24/1903/25/2024 CBC WITH DIFFE RENTI AL/PL ATELE T hemoglobin 14.3 g/dL 11.1-1 5.9 Not Available [facility] ([facility]) [address] [place], [address], 03/25/2024 08:25:30 03/24/1903/25/2024 CBC WITH DIFFE RENTI AL/PL ATELE T hematocrit 42.9 % 34.0-4 6.6 Not Available [facility] ([facility]) [address] [place], [address], 03/25/2024 08:25:30 03/24/1903/25/2024 CBC WITH DIFFE RENTI AL/PL ATELE T MCV 88 fL 79-97 Not Available [facility] ([facility]) [address] [place], [address], 03/25/2024 08:25:30 03/24/1903/25/2024 CBC WITH DIFFE RENTI AL/PL ATELE T MCH 29.3 pg 26.6-3 3.0 Not Available [facility] ([facility]) [address] [place], [address], 03/25/2024 08:25:30 03/24/1903/25/2024 CBC WITH DIFFE RENTI AL/PL ATELE T MCHC 33.3 g/dL 31.5-3 5.7 Not Available [facility] ([facility]) [address] [place], [address], 03/25/2024 08:25:30 03/24/19 25 03/25/2024 CBC WITH DIFFE RENTI AL/PL ATELE T RDW 12.9 % 11.7-1 5.4 Not Available [facility] ([facility]) [address] [facility], [place], [address], 03/25/2024 08:25:30 03/24/1903/25/2024 CBC WITH DIFFE RENTI AL/PL ATELE T platelets 251 x10e3 /uL 150-45 0 Not Available [facility] ([facility]) [address] [facility], [place], [address], 03/25/2024 08:25:30 03/24/19 25 03/25/2024 CBC WITH DIFFE RENTI AL/PL ATELE T neutrophils 49 % notest ab. Not Available [facility] ([facility]) [address] [facility], [place], [address], 03/25/2024 08:25:30 03/24/19 25 03/25/2024 CBC WITH DIFFE RENTI AL/PL ATELE T lymphs 37 % notest ab. Not Available [facility] ([facility]) [address] [facility], [place], [address], 03/25/2024 08:25:30 03/24/1903/25/2024 CBC WITH DIFFE RENTI AL/PL ATELE T monocytes 10 % notest ab. Not Available [facility] ([facility]) [address] [facility], [place], [address], 03/25/2024 08:25:30 03/24/1903/25/2024 CBC WITH DIFFE RENTI AL/PL ATELE T eos 3 % notest ab. Not Available [facility] ([facility]) [address] [facility], [place], [address], 03/25/2024 08:25:30 03/24/19 25 03/25/2024 CBC WITH DIFFE RENTI AL/PL ATELE T basos 1 % notest ab. Not Available [facility] ([facility]) [address] [facility], [place], [address], 03/25/2024 08:25:30 03/24/19 25 03/25/2024 CBC WITH DIFFE RENTI AL/PL ATELE T neutrophils (absolute) 3.6 x10e3 /uL 1.4-7. 0 Not Available [facility] ([facility]) [address] [place], [address], 03/25/2024 08:25:30 03/24/1903/25/2024 CBC WITH DIFFE RENTI AL/PL ATELE T lymphs (absolute) 2.7 x10e3 /uL 0.7-3. 1 Not Available [facility] ([facility]) [address] [place], [address], 03/25/2024 08:25:30 03/24/1903/25/2024 CBC WITH DIFFE RENTI AL/PL ATELE T monocytes(ab solute) 0.8 x10e3 /uL 0.1-0. 9 Not Available [facility] ([facility]) [address] [place], [address], 03/25/2024 08:25:30 03/24/1903/25/2024 CBC WITH DIFFE RENTI AL/PL ATELE T eos (absolute) 0.2 x10e3 /uL 0.0-0. 4 Not Available [facility] ([facility]) [address] [place], [address], 03/25/2024 08:25:30 03/24/1903/25/2024 CBC WITH DIFFE RENTI AL/PL ATELE T baso (absolute) 0.1 x10e3 /uL 0.0-0. 2 Not Available [facility] ([facility]) [address] [place], [address], 03/25/2024 08:25:30 03/24/19 25 03/25/2024 CBC WITH DIFFE RENTI AL/PL ATELE T immature granulocytes 0 % notest ab. Not Available [facility] ([facility]) [address] [facility], [place], [address], 03/25/2024 08:25:30 03/24/19 25 03/25/2024 CBC WITH DIFFE RENTI AL/PL ATELE T immature grans (abs) 0.0 x10e3 /uL 0.0-0. 1 Not Available [facility] ([facility]) [address] [facility], [place], [address], 03/25/2024 08:25:30 08/21/19 20 08/18/2019 MRI, lumba r spine , w/o contr ast No observ ation record ed. [facility] (Im[facility]) [address] [place], [address], 08/25/2019 11:35:41 08/21/19 20 08/18/2019 MRI, lumba r spine , w/o contr ast No observ ation record ed. [facility] ([facility]) [address] [place], [address], 08/25/2019 11:35:14 08/05/19 21 08/04/2020 XR, shoul mary No observ ation record ed. [facility] ([facility]) [address] [place], [address], 08/04/2020 17:23:47 04/05/19 25 04/05/2024 MAMMO , scree manisha, digit al, bilat eral No observ ation record ed. [address], [place], [address], 04/09/2024 17:12:41 Result Notes None recorded. Problems Name Problem SNOMED Code Status Onset Date Resolution Date Notes Provider Name and Address Organization Details Recorded Time Essential hypertensio n 69134264 Active 2023 Parish Patel MD Attn: Dionne francesca,[address] [place], [address], [place] [facility] 5 21:02:37 Bilateral thumb pain [id number] 9102 Active 2023 Darlene Benton [place] [facility] 4 12:32:34 Hyperlipide praveen 96078035 Active 2023 Parish Patel MD Attn: Dionne ma,[address] [place], [address], [place] [facility] 5 21:02:37 Chronic low back pain 114043738 Active 2024 Parish Patel MD Attn: Dionne ma,[address] [place], [address], [place] [facility] 5 21:02:08 Hypertensiv e disorder 63481838 Active Malia Esquivel MD Attn: Dionne ma,[address] [place], [address], [place] [facility] 6 15:27:02 Osteoarthri tis of hip 703472658 Active Malia Esquivel MD Attn: Dionne ma,[address] [place], [address], [place] [facility] 6 15:27:02 Osteoarthri tis of knee 800672245 Active Marilynn Simon RN [place] [facility] 6 13:30:58 Osteoarthri tis of foot joint 850832168 Active Malia Esquivel MD Attn: Dionne ma,[address] [place], [address], [place] [facility] 6 15:27:02 Menopausal and postmenopau keysha disorders 577007376 Active Ryland Perrin [place] [facility] 6 11:01:28 Menopausal syndrome 556943604 Active R[place] Perrin [place] [facility] 6 11:01:28 Osteopenia 923897794 Active Malia Esquivel MD Attn: Dionne ma,[address] [facility], [place], [address], [facility] - [facility] 6 15:27:02 Vitamin D deficiency 76345257 Active Parish Patel MD Attn: Dionne g,[address] [facility], [place], [address], [facility] - [facility] 5 21:02:37 Abscess of breast 10595647 Active Malia Esquivel MD Attn: Dionne g,[address] [facility], [place], [address], [facility] - [facility] 6 15:55:15 Problem Notes None recorded. Procedures Surgical History Date Name Laterality Status Provider Name and Address Organization Details Recorded Time 10/06/19 16 I&D completed Lucretia Weston PA-C Attn: Accounting,[address] [facility], [place], [address], [facility] - [facility] 10/06/2015 09:33:39 09/08/19 15 Date of Last Pap Smear completed Mel Chavez [place] 07/10/2015 10:30:06 07/09/19 15 Screening pap smear by phys completed Dario Austin [place] [facility] 06/13/2015 14:35:35 Joint Replacement completed Chay Ramirez MA [facility] 05/21/2023 12:51:54 Tonsillectomy completed Dario Austin [place] [facility] 06/13/2015 14:35:35 Imaging Results Imaging Date Name Status LastModified by Organiz [email or web address] Details LastModified Time 08/18/2019 MRI, lumbar spine, w/o contrast completed [facility] (Imaging) [address] [place], [address], 08/25/2019 11:35:41 08/18/2019 MRI, lumbar spine, w/o contrast completed [facility] (Imaging) [address] [place], [address], 08/25/2019 11:35:14 08/04/2020 XR, shoulder completed [facility] ([facility] Call Scheduling) [address], [place], [address], 08/04/2020 17:23:47 04/05/2024 MAMMO, screening, digital, bilateral completed [facility] [address] [facility] [address], [place], [address], 04/09/2024 17:12:41 Procedure Notes None recorded. Medical Equipment None [...] Not Available Vitals Date Recorded Body height Body mass index (BMI) Body weight Body temperature Oxygen saturation Oxygen saturation in Arterial blood by Pulse oximetry Heart rate Systolic blood pressure Diastolic blood pressure Provider Name and Address Organization Details Last Updated DateTime 9 157.48 cm 35 kg/m2 73977.5 7 g 98.1 [degF] 99 % 99 % 77 /min 110 mm[Hg] 66 mm[Hg] Dario Austin [place] [facility] 9 10:11:58 Date Recorded Body height Body mass index (BMI) Body weight Body temperature Oxygen saturation Oxygen saturation in Arterial blood by Pulse oximetry Heart rate Systolic blood pressure Diastolic blood pressure Provider Name and Address Organization Details Last Updated DateTime 9 157.48 cm 35.4 kg/m2 37246.7 6 g 98.1 [degF] 97 % 97 % 69 /min 128 mm[Hg] 70 mm[Hg] Dario Austin MA [facility] 9 10:08:01 Date Recorded Heart rate Oxygen saturation Oxygen saturation in Arterial blood by Pulse oximetry Systolic blood pressure Diastolic blood pressure Provider Name and Address Organization Details Last Updated DateTime 4 76 /min 97 % 97 % 118 mm[Hg] 77 mm[Hg] Chay Ramirez MA [facility] 4 12:50:27 Date Recorded Body weight Body mass index (BMI) Body height Heart rate Oxygen saturation Oxygen saturation in Arterial blood by Pulse oximetry Systolic blood pressure Diastolic blood pressure Provider Name and Address Organization Details Last Updated DateTime 4 96819.2 7 g 31 kg/m2 157.48 cm 79 /min 98 % 98 % 118 mm[Hg] 64 mm[Hg] Luz Prajapati MA [facility] 4 14:18:39 Date Recorded Body height Body mass index (BMI) Body weight Heart rate Oxygen saturation Oxygen saturation in Arterial blood by Pulse oximetry Systolic blood pressure Diastolic blood pressure Provider Name and Address Organization Details Last Updated DateTime 5 157.48 cm 31.8 kg/m2 70608.4 3 g 65 /min 99 % 99 % 120 mm[Hg] 64 mm[Hg] Luz Prajapati MA [facility] 5 15:11:35 Date Recorded Pain severity - 0-10 verbal numeric rating [Score] - Reported Provider Name and Address Organization Details Last Updated DateTime 03/24/2024 0 Sue Barron [facility] 03/24/2024 15:16:35 Social History Question Answer Notes LastModified by Organizat ion Details LastModified Time Tobacco Smoking Status Former Smoker quit around 1999 Sue sunshine [facility] 03/24/2024 15:17:55 Do You Have An Advance Directive? No [email or web address] Information not available 07/10/2015 What Is Your Level Of Alcohol Consumption? None [email or web address] Information not available 06/13/2015 Are You Blind Or Do You Have Difficulty Seeing? No Information not available 11/19/2023 Is Blood Transfusion Acceptable In An Emergency? Yes [email or web address] Information not available 07/10/2015 What Is Your Level Of Caffeine Consumption? None Information not available 03/24/2024 How Much Tobacco Do You Chew? None [email or web address] Information not available 07/10/2015 In The 14 [...] available 11/19/2023 Are You Currently Employed? Yes [email or web address] Information not available 07/10/2015 Are You Deaf Or Do You Have Serious Difficulty Hearing? No Information not available 11/19/2023 What Type Of Diet Are You Following? REGULAR [email or web address] Information not available 07/10/2015 Which Illicit Or Recreational Drugs Have You Used? Denies [email or web address] Information not available 07/10/2015 Education 2 Year College [email or web address] Information not available 07/10/2015 What Is The Highest Grade Or Level Of School You Have Completed Or The Highest Degree You Have Received? [id number] Information not available 03/24/2024 What Is Your Occupation? [employer] Information not available 03/24/2024 Are There Any Guns Present In Your Home? No [email or web address] Information not available 07/10/2015 Hard Of Hearing Or Deaf In One Or Both Ears? No Information not available 07/10/2015 Legally Blind In One Or Both Eyes? No Information not available 07/10/2015 Live Alone Or With Others? With Others [email or web address] Information not available 07/10/2015 In The Past 7 Days, How Many Days Did You Exercise? 0 Active Lifestyle Information not available 03/24/2024 In The Past 7 Days, How Much Pain Have You [place]? None Information not available 03/24/2024 In General, [...] Past 7 Days, How Often Have You Milton Sleepy In The Daytime? Never Information not available 03/24/2024 # Alcohol Drinks Per Week 0 Information not available 03/24/2024 Marital Status [email or web address] Informatio n not available 07/10/2015 What Was The Date Of Your Most Recent Tobacco Screening? 03/24/2024 Information not available 03/24/2024 How Many Children Do You Have? 2 Information not available 07/10/2015 Performs Monthly Self-breast Exam? Yes [email or web address] Information not available 07/10/2015 Do You Use Protection During Sex? No [email or web address] Information not available 07/10/2015 What Is Your Relationship Status? [email or web address] Information not available 07/10/2015 Do You Use Your Seat Belt Or Car Seat Routinely? Yes Information not available 11/19/2023 Seat Belts Used Routinely Yes [email or web address] Information not available 07/10/2015 Are You Sexually Active? Yes [email or web address] Information not available 07/10/2015 Smoke Alarm In Home Yes [email or web address] Information not available 07/10/2015 Do You Have Smoke And Carbon Monoxide Detectors In Your Home? Yes Information not available 11/19/2023 How Much Tobacco Do You Smoke? No Information not available 03/24/2024 General Stress Level Medium [email or web address] Information not available 07/10/2015 Do You Feel Stressed (tense, Restless, Nervous, Or Anxious, Or Unable To Sleep At Night)? [id number] Information not available 03/24/2024 Do You Use Any Illicit Or Recreational Drugs? No Information not available 11/19/2023 Do You Use Sunscreen Routinely? No Information not available 03/24/2024 Has Tobacco Cessation Counseling Been Provided? No Information not available 11/19/2023 How Many Years Have You Smoked Tobacco? 25 [email or web address] Information not available 07/10/2015 Do You Or [...] History Condition Response Coronary Artery Disease N Blood Diseases N Kidney Cyst N Hyperthyroidism N Blood Transfusion N MRSA N Blood disorders N Emphysema N COPD N Blood Clots N Depression N Pneumonia N Peripheral Arterial Disease N Premature N Edema N TIA N Headaches/Migraines N Anxiety Disorder N Obesity N Infertility N Polyps N Acid Reflux (GERD) N Hematuria N Stroke N Neck Injury N Polio N Hospital Admission other than N Neurologic Disorder N Other Sleep Disorders N Rheumatoid Arthritis N Fibromyalgia N Abdominal Aortic Aneurysm Repair N Kidney Disease N Heart Conditions N Heart Disease/Heart Problems N Hospitalizations N Brain Tumors N Acne N Skin Problems N Eating Disorder N Constipation N Meningitis N Tuberculosis N Cerebral Palsy N Myocardial Infarction N Asthma N Substance Abuse N Peripheral Vascular Disease N Vertigo N Sleep Disorder N Cirrhosis N Pulmonary Embolism N Chicken Pox Y Flomax Use Past or Present N Hematologic Disease N Anxiety/Depression N Thyroid Disease N Colon Cancer N Glaucoma N Lung Disease N Developmental or Behavioral Disorders N Bipolar N Pacemaker N Diverticulitis/Diverticulosis N Anesthesia Complications N Orthopedic Problems N Orthotics N Head Injury/Concussion N Congenital Anomalies N Lord Bite N Chronic Kidney Disease N Endometriosis N Liver Disease N Dialysis N Schizophrenia N Speech Delay N Chronic Obstructive Pulmonary Disease N Parkinson's Disease N Thyroid Problems N GI Problems N Developmental Delay N Anemia N Immune System Disorder N Multiple Sclerosis N Colon Polyps N Heart Attack ([place]) N Diabetes N Cardiomyopathy N Blood Transfusions N Heart Problems/Murmur N Eye Trauma N Congestive Heart Failure (CHF) N Valvular Heart Disease N Hyperlipidemia N Double Vision N Abuse/Domestic Violence N Hepatitis B N Lupus N Epilepsy/Seizures N Reflux/GERD N Aneurysm N Bronchitis N Heart Disease N Hypertension N Pre-Eclampsia N Heart Failure N Other N Gout [...] N Kidney Failure N Ocular trauma N Dementia N Diverticulitis N Sleep Apnea N Mental Problems N [...] 30 mcg/0.3 mL dose 1 completed V[place], [place] [facility] 09/08/2020 15:03:45 COVID-19, mRNA, LNP-S, PF, 30 mcg/0.3 mL dose 1 completed [place] [facility] 09/08/2020 15:04:07 Influenza, split virus, quadrivalent, preservative 9 completed [place] [facility] 03/23/2024 11:36:15 Pneumococcal conjugate PCV 13 1 completed [place] [facility] 03/23/2024 11:42:02 influenza, unspecified formulation 4 completed Luz Prajap[place] [facility] 03/24/2024 15:13:08 SARS-COV-2 (COVID-19) vaccine, UNSPECIFIED 4 completed Luz Prajap[place] [facility] 03/24/2024 15:13:31 Influenza, split virus, quadrivalent, PF 7 completed Not Available [facility] 03/27/2019 02:47:58 Influenza, split virus, quadrivalent, PF 8 completed Not Available [facility] 03/27/2019 02:35:58 pneumococcal, unspecified formulation 5 completed Dario [place] [facility] 06/13/2015 14:35:35 Pneumococcal conjugate PCV20, polysaccharide [id number] conjugate, adjuvant, PF 5 completed Parish Patel MD Attn: Accounting[address] [place], [address], [place] [facility] 03/27/2024 20:59:43 Past Encounters Encounter ID Performer Location Encounter Start Date Encounter Closed Date Diagnosis/Indication Diagnosis SNOMED-CT Code Diagnosis ICD10 Code Diagnosis Note [id number] Dione Meza-Ray is Dawson (Adult Med) [address] [place] [address] 06/13/2015 13:48:31 06/13/2015 15:40:52 Hypertensive disorder 53046135 I10 Osteoarthritis of hip 23 3663390 M16.9 Osteoarthr itis of knee 571573868 M17.9 M17.11 Osteoarthr itis of foot joint 356087991 M19.079 [id number] Ryland Perrin Dawson ([employer]) [address] [place] [id number] 07/10/2015 10:00:02 07/10/2015 11:02:26 Menopausal syndrome 462008285 N95.9 [id number] MD Dawson Nagy (Adult Med) [address] [place] [address] 08/15/2015 14:40:01 08/15/2015 15:52:55 Osteoarthritis of hip 709691399 M16.9 Osteoarthr itis of knee 374635340 M17.9 M17.11 Osteoarthr itis of foot joint 748058404 M19.079 Hypertensive disorder 38 478697 I10 Osteopenia 206724203 M85 .80 Vitamin D deficiency 347 10199 E55.9 [id number] LAURA Corral (Adult Med) [address] [place] [address] 10/06/2015 08:50:49 10/06/2015 09:34:12 Abscess of breast 02474122 N61 Under the right breast - will send for culture Bactrim DS BID x 10 day Patient advised to wait on mammogram until area is healed Advised to f/u if she develops nausea, vomiting, fever chills, any drainage from area or change in skin around the area [id number] LAURA Corral (Adult Med) [address] [place] [id number] 11/02/2015 08:42:22 11/02/2015 10:34:48 Abscess of breast 35804959 N61 Completed two courses of Bactrim and greatly improved One more day of Bactrim remaining f/u with PCP and OBGYN as needed [id number] MD Dawson Nagy (Adult Med) [address] [place] [id number] 11/21/2015 15:11:40 11/21/2015 16:31:06 Abscess of breast 00056314 N61 [id number] Malia Esquivel MD [facility] (Adult Med) [address] [place] [address] 04/25/2016 11:58:08 04/25/2016 15:43:39 Menopausal syndrome 368637766 N95.9 Osteoarthritis of hip 23 0701928 M16.9 She had left hip replacemen t in January 16 2016, and is doing well according to her. Osteoarthr itis of knee 836385504 M17.9 Her right pain seems coming back, wants baclofen refills. Osteoarthr itis of foot joint 288324860 M19.079 Hypertensive disorder 38 667547 I10 Neuropathy 571290099 G62 .9 Chronic low back pain 27 7653735 M54.5 [id number] MD Dawson Nagy (Adult Med) [address] [place] [id number] 08/12/2016 14:58:40 08/14/2016 11:30:47 Lower urinary tract infectious disease 9416658 N39.0 Resolved. Osteoarthritis of hip 23 4914618 M16.9 She had left hip replacemen t in January 16 2016, and is doing well according to her. Osteopenia 444625514 M85 .80 On calcium, vitamin D. Vitamin D deficiency 347 07443 E55.9 On vitamin D supplement . Hypertensive disorder 38 547175 I10 On lisinopril . BP is well-contr oll. Screening mammography 24 539238 Z12.31 up-dated. Screening for malignant neoplasm of cervix 774618347 Z12.4 up-dated. Screening for malignant neoplasm of colon 468681488 Z12.11 Up-dated. [id number] MD Dawson Nagy (Adult Med) [address] [place] [address] 11/18/2016 09:59:28 11/19/2016 14:05:34 Administration of influenza vaccine 82646700 Z23 Osteoarthritis of hip 23 9386725 M16.9 She had left hip replacemen t in January 16 2016, and is doing well according to her. Osteoarthr itis of knee 634540317 M17.9 Her right pain seems coming back, wants baclofen refills. Vitamin D deficiency 347 27896 E55.9 On vitamin D supplement . Hypertensive disorder 38 747947 I10 On lisinopril . BP is well-contr oll. Osteopenia 510498062 M85 .80 On calcium, vitamin D. Neuropathy 767153739 G62 .9 Chronic low back pain 27 3876756 M54.5 Menopausal syndrome 1237 26077 N95.9 Under the care of her gynecologi st. [id number] Malia Esquivel MD [facility] (Adult Med) [address] [place] [id number] 03/06/2017 10:17:25 03/06/2017 11:48:49 Acute sinusitis 00235509 J01.90 Same antibiotic s as for bronchitis . 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 Degenerati ve joint disease involving multiple joints 032117427 M15.9 Vitamin D deficiency 347 92322 E55.9 On vitamin D supplement . Hypertensive disorder 38 864650 I10 On lisinopril . BP is well-contr oll. Chronic low back pain 27 2693357 M54.5 Osteoarthr itis of knee 552954017 M17.9 Her right pain seems coming back, wants baclofen refills. Osteopenia 521874091 M85 .80 On calcium, vitamin D. Neuropathy 859688465 G62 .9 [id number] [facility] [address] [place] [id number] 11/19/2017 10:20:04 11/19/2017 11:15:57 Osteoarthritis of hip 294875154 M16.9 She had left hip replacemen t in January 16 2016, and is doing well according to her. Osteoarthr itis of knee 614862537 M17.9 Her right pain seems coming back, wants baclofen refills. Vitamin D deficiency 347 18665 E55.9 On vitamin D supplement . Osteopenia 701469948 M85 .80 On calcium, vitamin D. Hypertensive disorder 38 430806 I10 On lisinopril . BP is well-contr oll. Neuropathy 255162805 G62 .9 Stable. Chronic low back pain 27 8051364 M54.5 Screening mammography 24 092705 Z12.31 up-dated. Screening for malignant neoplasm of cervix 720418315 Z12.4 up-dated. Screening for malignant neoplasm of colon 575882028 Z12.11 Up-dated. Administra tion of influenza vaccine 58484466 Z23 She tolerated shot well. [id number] Malia Esquivel MD [facility] (Adult Med) [address] [place] [id number] 05/19/2018 09:50:59 05/20/2018 11:23:03 Osteoarthritis of hip 094477712 M16.9 She had left hip replacemen t in January 16 2016, and is doing well according to her. Osteoarthr itis of knee 347447313 M17.9 Her right pain seems coming back, wants baclofen refills. Vitamin D deficiency 347 85679 E55.9 On vitamin D supplement . Hypertensive disorder 38 172487 I10 On lisinopril . BP is well-contr oll. Osteopenia 065927054 M85 .80 On calcium, vitamin D. Neuropathy 192236384 G62 .9 Stable. Chronic low back pain 27 6905266 M54.5 [id number] Malia Esquivel MD [facility] (Adult Med) [address] [place] [id number] 11/19/2018 09:47:45 11/19/2018 10:18:07 Osteoarthritis of hip 457038016 M16.9 She had left hip replacemen t in January 16 2016, and is doing well according to her. Osteoarthr itis of knee 052541969 M17.9 Her right pain seems coming back, wants baclofen refills. Osteopenia 364337441 M85 .80 On calcium, vitamin D. Vitamin D deficiency 347 90365 E55.9 On vitamin D supplement . Hypertensive disorder 38 961904 I10 On lisinopril . BP is well-contr oll. Neuropathy 331492317 G62 .9 Stable. Chronic low back pain 27 3866530 M54.5 stable. Screening for malignant neoplasm of colon 101823374 Z12.11 Up-dated. Had in 2016. [id number] MD Dawson oFnseca (Adult Med) [address] [place] [address] 05/21/2023 12:18:15 05/21/2023 12:41:33 Essential hypertension 04409000 I10 Bilateral thumb pain 116 3283021 4624090 M79.644 M79.645 Hyperlipidemia 85814295 E78.5 Restless legs 97544833 G 25.81 [id number] Parish Patel MD [facility] (Adult Med) [address] [place] [id number] 0 11/19/2023 14:01:21 11/19/2023 14:51:29 Obesity 877349536 E66.8 Essential hypertension 53441859 I10 Screening mammography 24 675863 Z12.31 Postmenopausal state 764 88185 Z78.0 Screening for malignant neoplasm of colon 355058032 Z12.11 Hyperlipidemia 23235955 E78.5 [id number] MD Dawson Fonseca (Adult Med) [address] [place] [address]68[address] 0 03/24/2024 14:51:13 03/24/2024 15:42:00 Body mass index 30+ - obesity 303268380 Z68.31 Obesity 409882439 E66.9 Adult heal th examination 177320266 Z00.00 Health Risk Assessment collected and reviewed Essential hypertension 38464913 I10 Administra tion of pneumococcal vaccine 18121668 Z23 Hyperlipidemia 21354489 E78.5 Vitamin D deficiency 347 62173 E55.9 Chronic low back pain 27 3615695 M54.50 Health Concerns Section Related Observation LastModified by Organization Detai ls LastModified Time None Recorded Concern Status LastModified by Organization Details LastModified Time None Recorded Advance Directives Directive N: Payers Encounter Date Sequence Insurance Name Policy Number Policy [place] Covered Member ID [place] Member ID Guarantor Name 05/19/2018 1 [place] [id number] Ree Harris [id number] Ree Guerreroedemann 11/19/2018 1 [place] [id number] Ree Harris [id number] Ree Guerreroedemann 05/21/2023 1 [facility] (MEDICARE REPLACEMENT/A DVANTAGE - HMO) [id number] Ree Wood Juedemann [id number] Ree Juedemann 11/19/2023 1 [facility] (MEDICARE REPLACEMENT/A DVANTAGE - HMO) [id number] Ree Wood Juedemann [id number] Ree Juedemann 03/24/2024 1 [facility] (MEDICARE REPLACEMENT/A DVANTAGE - HMO) [id number] Ree Guerreroedemann [id number] Ree Yolandaedemann Notes Date Note Type Note Provider Name and Address Organization Details Recorded Time 05/19/2018 text/html F/U and refills of medications. Malia Esquivel MD Attn: Accounting[address] [place], [address], [facility] 05/19/2018 10:24:13 11/19/2018 text/html Arthritism, hypertension , vitamin D deficiency, NKDA. Malia Esquivel MD Attn: Accounting[address] [place], [address], [facility] 11/19/2018 10:14:59 05/21/2023 text/html Lobe bilateral t humb pain mild to moderate worse worse with trying to lift things and grasping things has not really tried to take anything hyperlipidemia taking her medication try to follow low-fat diet. Hypertension no chest pain no dizziness. Restless legs doing well with gabapentin Parish Patel MD Attn: Accounting,[address] [facility], [place], [address], [facility] 05/25/2023 15:52:38 11/19/2023 text/html obesity trouble losing weight postmenopausal state due for bone density needs colonoscopy dyslipidemia does try to follow a diet hypertension no chest pain no shortness a breath or headache Parish Patel MD Attn: Accounting[address] , [place], [address], [facility] 11/22/2023 21:31:54 03/24/2024 text/html MAW 2Reported bypatient.Diet [...] follow a low-fat diet. Low vitamin-D level [id number] supplementation Parish Patel MD Attn: Accounting,[address] , [place], [address], [facility] 03/27/2024 21:06:00 OBGyn Episode Ob Episode Information Episode Created Date Number of Fetuses Patient Bloodtype Patient rh Status Prepregnancy Weight lbs Domestic Partner Domestic Partner Phone Father Name Toe Lining Closer Status 07/10/19 16 2 CLOSED Fetus Data First Name Last Name Admitted to NICU Weight (g) Sex Living Outcome Pediatric Complications Fetus ID Race Codes Race Delivery Type 2324.65 9 M Prematur e 64898 Vaginal 28871 Vasile Calculation Initial Vasile Date Initial Exam [...] Domestic Partner Domestic Partner Phone Father Name Toe Lining Closer Status 07/10/19 16 1 CLOSED Fetus Data First Name Last Name Admitted to NICU Weight (g) Sex Living Outcome Pediatric Complications Fetus ID Race Codes Race Delivery Type 3090.09 54 F Full Term [id number] Vaginal Vasile Calculation Initial Vasile Date Initial [...] Domestic Partner Domestic Partner Phone Father Name Toe Lining Closer Status 07/10/19 16 2 CLOSED Fetus Data First Name Last Name Admitted to NICU Weight (g) Sex Living Outcome Pediatric Complications Fetus ID Race Codes Race Delivery Type 1842.71 74 F Prematur [place] [address] Vaginal [address]122 Vasile Calculation Initial Vasile Date Initial Exam [...]
--- OUTSIDE RECORDS SUMMARY | 2024-04-28 08:12 | XMS_ITS | Patient Health Summary ---
Author Organization [facility] Address [address] [place] [address] Care Team Providers Care Lead Architect Name Role Phone Keyona Castro RN Unavailable [phone] Malia Esquivel MD Primary Care Provider [phone] Note from [facility],non-owned Affiliates and Associated Physician Practices is amultiple site organization consisting of ambulatory clinics and hospital sitesin [place], [place], [place] and [place]. This disclosure is being madepursuant to the Care Everywhere program and may not contain all information available regarding this patient. Last updated 17.[facility] Allergies No known active allergies Medications * Be aware that medications may not be up to date on this document. Alwaysverify current medications with the patient. * lisinopril (PRINIVIL; ZESTRIL) 40 MG tablet Take 40 mg by mouth once daily * gabapentin (NEURONTIN) 300 MG capsule Take 300 mg by mouth 3 times daily * baclofen (LIORESAL) 10 MG tablet Take 10 mg by mouth 3 times daily May cause drowsiness. * raloxifene (EVISTA) 60 MG tablet Take 60 mg by mouth once daily * calcium carbonate (CALTRATE) 600 MG tablet Take 1 Tab by mouth daily with food * estrogens, conjugated, (PREMARIN) 0.625 MG tablet Take 0.625 mg by mouth once daily Immunizations * FLU VACCINE QUAD IIV4 PF ID(Given 01/02/2016) * PNEUMOCOCCAL PPSV23(Given 04/23/2014) Social History Tobacco Use Types Packs/Day Years [...] 68 09/07/2015 11:30 AM CDT Temperature 37 C (98.6 F) 09/07/2015 10:29 AM CDT Respiratory Rate 21 09/07/2015 11:30 AM CDT Oxygen Saturation 99% 09/07/2015 11:30 AM CDT Inhaled Oxygen Concentration - - Weight 81.6 kg (180 lb) 09/07/2015 10:29 AM CDT Height 157.5 cm (5' 2 ) 09/07/2015 10:29 AM CDT Body Mass Index 32.92 09/07/2015 10:29 AM CDT Procedures * COLONOSCOPY EXCISION LESION CAUTERY BY SNARE(Performed 09/07/2015) Performed for Screening for colon cancer * COLONOSCOPY SCREEN(Performed 09/07/2015) Performed for Screening for colon cancer * ENDOSCOPY, COLON, SCREENING(Performed 09/07/2015) * DEXA BONE DENSITY 2 SITES(Performed 06/16/2015) Performed for Menopausal and postmenopausal disorder * XR KNEE RIGHT 4VW OR MORE(Performed 06/16/2015) Performed for Right knee pain, unspecified chronicity * XR FOOT RIGHT 3VW OR MORE(Performed 06/16/2015) Performed for Primary localized osteoarthrosis, ankle and foot, right * XR HIP LEFT 2VW OR MORE(Performed 06/16/2015) Performed for Primary osteoarthritis of right foot, Left hip pain * CARDIAC RHYTHM STRIP ORDER(Performed 04/25/2014) * TRIGLYCERIDES BLOOD(Performed 04/23/2014) Performed for Abdominal pain, epigastric * AMYLASE BLOOD(Performed 04/23/2014) Performed for RUQ abdominal pain * LIPASE BLOOD(Performed 04/23/2014) Performed for RUQ abdominal pain * COMPREHENSIVE METABOLIC PANEL(Performed 04/23/2014) Performed for RUQ abdominal pain * CBC W AUTO DIFFERENTIAL(Performed 04/23/2014) Performed for RUQ abdominal pain * US ABDOMEN LIMITED(Performed 04/22/2014) Performed for Abdominal pain, epigastric, RUQ abdominal pain * TROPONIN I(Performed 04/22/2014) * TROPONIN I(Performed 04/21/2014) * URINALYSIS REFLEX MICROSCOPIC REFLEX CULTURE(Performed 04/21/2014) * CT ABDOMEN PELVIS W CONTRAST(Performed 04/21/2014) Performed for Abdominal pain, epigastric * LIPASE BLOOD(Performed 04/21/2014) * TROPONIN I(Performed 04/21/2014) * COMPREHENSIVE METABOLIC PANEL(Performed 04/21/2014) * CBC W AUTO DIFFERENTIAL(Performed 04/21/2014) * EKG 12-LEAD(Performed 04/21/2014) Performed for Abdominal pain, epigastric Results * ENDOSCOPY, COLON, SCREENING (09/07/2015 10:32 AM CDT) Report Endoscopy POC _ Patient Name: Ree Harris Procedure Date: 09/07/2015 10:32 AM Date of : 1955 Admit Type: Outpatient Age: 60 Gender: Female Attending MD: Shashi Fields, _ Procedure: Colonoscopy Indications: Screening for colorectal malignant neoplasm Providers: Shashi Fields (Doctor), Liseth Bishop RN, Dory Sanchez, Manager Industrial Patient Profile: 60F pmh HTN, obesity here for screening colonoscopy avg risk Referring MD: Todd Esquivel MD (Referring MD) Medicines: Monitored Anesthesia Care Complications: No immediate complications. _ Procedure: After I obtained informed consent, the scope was passed under direct vision. Throughout the procedure, the patient's blood pressure, pulse, and oxygen saturations were monitored continuously. The Colonoscope was introduced through the anus and advanced to the cecum, identified by appendiceal orifice and ileocecal valve. The colonoscopy was performed without difficulty. The patient tolerated the procedure well. The quality of the bowel preparation was good. Impression: - Non-thrombosed external hemorrhoids found on digital rectal exam. - One 10 mm polyp in the sigmoid colon. Complete resection. Polyp tissue not retrieved. - Internal hemorrhoids. - The examination was otherwise normal. Findings: The digital rectal exam findings include non-thrombosed external hemorrhoids. A 10 mm polyp was found in the sigmoid colon. The polyp was semi-sessile. The polyp was removed with a hot snare. Resection was complete, but the polyp tissue was not retrieved. Internal hemorrhoids were found during retroflexion. The hemorrhoids were small. The exam was otherwise without abnormality. _ Recommendation: - High fiber diet. - Surveillance colonoscopy in 3 yrs Procedure Code(s): --- Professional --- 24973, Colonoscopy, flexible; with removal of tumor(s), polyp(s), or other lesion(s) by snare technique --- Technical --- 03539, Colonoscopy, flexible; with removal of tumor(s), polyp(s), or other lesion(s) by snare technique Diagnosis Code(s): --- Professional --- Z12.11, Encounter for screening for malignant neoplasm of colon K64.4, Residual hemorrhoidal skin tags K64.8, Other hemorrhoids D12.5, Benign neoplasm of sigmoid colon --- Technical --- Z12.11, Encounter for screening for malignant neoplasm of colon K64.4, Residual hemorrhoidal skin tags K64.8, Other hemorrhoids D12.5, Benign neoplasm of sigmoid colon CPT copyright 2015 [employer]. All rights reserved. The codes documented in this report are preliminary and upon cnc operator programmer review may be revised to meet current compliance requirements. Taylorstuart Donnie, 09/07/2015 11:12:25 AM This report has been signed electronically. Number of Addenda: 0 Note Initiated On: 09/07/2015 10:32 AM [facility] ENDOSCOPY 09/07/2015 10:3 2 AM CDT Shashi Fields MD GI PROCEDURE ORDERAB LES [facility] ENDOSCOPY * DEXA BONE DENSITY 2 SITES (06/16/2015 9:06 AM CDT) Anatomical Region Laterality Modality Mammography 06/16/2015 9:07 AM CDT Narrative 06/16/2015 9:57 AM CDT BONE MINERAL DENSITY STUDY INDICATION: Postmenopausal ovarian [...] 9:45 AM Malia Esquivel MD DEXA ORDERABLES * XR KNEE 4+ VW RIGHT (06/16/2015 8:49 AM CDT) Anatomical Region Laterality Modality Lower Extremity Radiographic Kylah ging 06/16/2015 9:00 AM CDT Impressions 06/16/2015 9:47 AM CDT Patellar spurring. Edited by Essence Cortes on 06/16/2015 9:31 AM Narrative 06/16/2015 9:47 AM CDT RIGHT KNEE 4 VIEWS INDICATION: Right knee pain. FINDINGS: Four views of the right knee without prior show degenerative spurring off the patella. There is no acute fracture, subluxation or dislocation. Procedure Note Jose Steiner MD - 06/16/2015 RIGHT KNEE 4 VIEWS INDICATION: Right knee pain. FINDINGS: Four views of the right knee without prior show degenerative spurring off the patella. There is no acute fracture, subluxation or dislocation. IMPRESSION Patellar spurring. Edited by Essence Cortes on 06/16/2015 9:31 AM Malia Esquivel MD DIAGNOSTIC IMAGING O RDERABLES * XR FOOT 3+ VW RIGHT (06/16/2015 8:49 AM CDT) Anatomical Region Laterality Modality Ankle / Foot Radiographic Kylah ging 06/16/2015 9:21 AM CDT Impressions 06/16/2015 9:55 AM CDT Calcaneal spur. No acute osseous abnormality. Edited by Essence Cortes on 06/16/2015 9:53 AM Narrative 06/16/2015 9:55 AM CDT RIGHT FOOT 3 VIEWS INDICATION: Right foot pain, initial encounter. FINDINGS: Three views of the right foot without prior show spurring off the posterior aspect of the calcaneus. There is no evidence of acute fracture, subluxation or dislocation. If symptoms persist, followup exam may be of further use to exclude an occult process. Procedure Note Jose Steiner MD - 06/16/2015 RIGHT FOOT 3 VIEWS INDICATION: Right foot pain, initial encounter. FINDINGS: Three views of the right foot without prior show spurring off the posterior aspect of the calcaneus. There is no evidence of acute fracture, subluxation or dislocation. If symptoms persist, followup exam may be of further use to exclude an occult process. IMPRESSION Calcaneal spur. No acute osseous abnormality. Edited by Essence Cortes on 06/16/2015 9:53 AM Malia Esquivel MD DIAGNOSTIC IMAGING O RDERABLES * XR HIP 2+ VW LEFT (06/16/2015 8:48 AM CDT) Anatomical Region Laterality Modality Pelvis, Lower Extremity Radiogra phic Imaging 06/16/2015 9:01 AM CDT Impressions 06/16/2015 9:47 AM CDT Degenerative changes left hip. Edited by Essence Cortes on 06/16/2015 9:33 AM Narrative 06/16/2015 9:47 AM CDT LEFT HIP 2 VIEWS INDICATION: Left hip pain, initial encounter. FINDINGS: Two views of the left hip without prior show moderate joint space narrowing. There is sclerosis and subchondral cystic change overlying the adjacent acetabulum and femoral head. No acute fracture or subluxation is present. If symptoms persist, followup exam or MRI may be of further use to exclude an occult process. Procedure Note Jose Steiner MD - 06/16/2015 LEFT HIP 2 VIEWS INDICATION: Left hip pain, initial encounter. FINDINGS: Two views of the left hip without prior show moderate joint space narrowing. There is sclerosis and subchondral cystic change overlying the adjacent acetabulum and femoral head. No acute fracture or subluxation is present. If symptoms persist, followup exam or MRI may be of further use to exclude an occult process. IMPRESSION Degenerative changes left hip. Edited by Essence Cortes on 06/16/2015 9:33 AM Malia Esquivel MD DIAGNOSTIC IMAGING O RDERABLES * CARDIAC RHYTHM STRIP ORDER (04/25/2014 7:03 PM RESEARCH PHYSIOLOGIST) Narrative 04/25/2014 7:03 PM RESEARCH PHYSIOLOGIST Ordered by an unspecified provider. Scanned Document CARDIAC SERVICES ORD ERABLES * TRIGLYCERIDES BLOOD (04/23/2014 10:47 AM RESEARCH PHYSIOLOGIST) Triglycerides 124 <150 mg/dL 04/23/2014 11:21 AM [facility] Blood BLOOD SPECIMEN / Unknown 04/23/2014 10:47 AM RESEARCH PHYSIOLOGIST 04/23/2014 11:01 AM RESEARCH PHYSIOLOGIST Dre Patterson MD LAB - CHEMISTRY ORDE EDER [facility] [address] [place] [address] * CBC W AUTO DIFFERENTIAL (04/23/2014 3:31 AM RESEARCH PHYSIOLOGIST) Only the most recent of2 resultswithin the time period is included. WBC 8.9 4.4 - 10.7 x10^9/L 04/23/2014 4:01 AM [facility] RBC 4.42 3.80 - 5.20 x10^12/L 04/23/2014 4:01 AM [facility] Hemoglobin 13.1 12.0 - 15.6 gm/dL 04/23/2014 4:01 AM [facility] Hematocrit 38.3 35.9 - 45.5 % 04/23/2014 4:01 AM [facility] MCV 86.7 80.7 - 98.3 fl 04/23/2014 4:01 AM [facility] MCH 29.6 26.7 - 34.0 pg 04/23/2014 4:01 AM [facility] MCHC 34.2 30.8 - 35.9 gm/dL 04/23/2014 4:01 AM [facility] Platelet Count 174 153 - 416 x10^9/L 04/23/2014 4:01 AM [facility] RDW-CV 13.6 12.1 - 14.9 % 04/23/2014 4:01 AM [facility] MPV 10.8 9.4 - 12.9 fl 04/23/2014 4:01 AM [facility] Neutrophils % 62.7 44.0 - 73.0 % 04/23/2014 4:01 AM [facility] Lymphocytes % 25.6 20.0 - 43.0 % 04/23/2014 4:01 AM [facility] Monocytes % 10.3 5.0 - 13.0 % 04/23/2014 4:01 AM [facility] Eosinophils % 1.2 0.0 - 6.0 % 04/23/2014 4:01 AM [facility] Basophils % 0.1 0.0 - 2.0 % 04/23/2014 4:01 AM [facility] Immature Granulocytes 0.1 0 - 1 % 04/23/2014 4:01 AM [facility] Neutrophil Absolute 5.56 2.01 - 7.14 x10^9/L 04/23/2014 4:01 AM [facility] Lymphocytes Absolute 2.28 1.07 - 3.94 x10^9/L 04/23/2014 4:01 AM [facility] Monocytes Absolute 0.92 0.26 - 1.07 x10^9/L 04/23/2014 4:01 AM [facility] Eosinophils Absolute 0.11 0 - 0.47 x10^9/L 04/23/2014 4:01 AM [facility] Basophils Absolute 0.01 0 - 0.08 x10^9/L 04/23/2014 4:01 AM [facility] Immature Granulocytes Absolute 0.01 0.00 - 0.06 x10^9/L 04/23/2014 4:01 AM [facility] Blood BLOOD SPECIMEN / Unknown 04/23/2014 3:31 AM RESEARCH PHYSIOLOGIST 04/23/2014 3:37 AM [facility] Dre Patterson MD LAB - HEMATOLOGY ORD ERABLES [facility] [address] [place] [address] * (ABNORMAL) COMPREHENSIVE METABOLIC PANEL (04/23/2014 3:31 AM RUST) Only the most recent of2 resultswithin the time period is included. [facility] Glucose 87 74 - 106 mg/dL 04/23/2014 4:06 AM [facility] Sodium 137 136 - 145 mmol/L 04/23/2014 4:06 AM [facility] Potassium 3.8 3.5 - 5.1 mmol/L 04/23/2014 4:06 AM [facility] Chloride 106 98 - 107 mmol/L 04/23/2014 4:06 AM [facility] CO2 26 22 - 31 mmol/L 04/23/2014 4:06 AM [facility] Calcium 8.4(L) 8.5 - 10.1 mg/dL 04/23/2014 4:06 AM [facility] Anion Gap 5 5 - 15 mmol/L 04/23/2014 4:06 AM [facility] BUN 10 7 - 21 mg/dL 04/23/2014 4:06 AM [facility] Creatinine 0.85 0.50 - 1.30 mg/dL 04/23/2014 4:06 AM [facility] eGFR by MDRD >60 >60 mL/min/1.7 3m2 04/23/2014 4:06 AM [facility] eGFR by MDRD >60 >60 mL/min/1.7 3m2 04/23/2014 4:06 AM [facility] Alkaline Phosphatase 79 38 - 126 U/L 04/23/2014 4:06 AM [facility] ALT 13 12 - 78 U/L 04/23/2014 4:06 AM [facility] AST 6 5 - 40 U/L 04/23/2014 4:06 AM [facility] Protein Total 6.4 6.4 - 8.2 gm/dL 04/23/2014 4:06 AM [facility] Albumin 3.0(L) 3.4 - 5.0 gm/dL 04/23/2014 4:06 AM [facility] Bilirubin Total 0.5 0.2 - 1.0 mg/dL 04/23/2014 4:06 AM [facility] Blood BLOOD SPECIMEN / Unknown 04/23/2014 3:31 AM RESEARCH PHYSIOLOGIST 04/23/2014 3:37 AM RESEARCH PHYSIOLOGIST Dre Patterson MD LAB - CHEMISTRY BEBA GAIN[facility] Organization Address City/State/ZIP Co de Phone Number [facility] [address] [place] [address] * (ABNORMAL) LIPASE BLOOD (04/23/2014 3:31 AM RESEARCH PHYSIOLOGIST) Only the most recent of2 resultswithin the time period is included. Lipase 68(L) 73 - 393 U/L 04/23/2014 4:06 AM RESEARCH PHYSIOLOGIST [facility] Blood BLOOD SPECIMEN / Unknown 04/23/2014 3:31 AM RESEARCH PHYSIOLOGIST 04/23/2014 3:37 AM RESEARCH PHYSIOLOGIST Dre Patterson MD LAB - CHEMISTRY ORDE LORRIYOANA Performing Organization Address [facility] Co de Phone Number [facility] [id number] [place] [id number] * AMYLASE BLOOD (04/23/2014 3:31 AM RESEARCH PHYSIOLOGIST) Amylase 23 15 - 115 U/L 04/23/2014 4:06 AM RESEARCH PHYSIOLOGIST [facility] Blood BLOOD SPECIMEN / Unknown 04/23/2014 3:31 AM RESEARCH PHYSIOLOGIST 04/23/2014 3:37 AM RESEARCH PHYSIOLOGIST Dre Patterson MD LAB - CHEMISTRY ORDE LORRIYOANA Performing Organization Address [facility] de Phone Number [facility] [address] [place] [phone] * US ABD LIMITED (RUQ) (04/22/2014 9:36 AM RESEARCH PHYSIOLOGIST) Anatomical Region Laterality Modality Abdomen Ultrasound 04/22/2014 10:2 1 AM RESEARCH PHYSIOLOGIST Impressions 04/22/2014 10:23 AM RESEARCH PHYSIOLOGIST Hepatic steatosis. No acute findings. Narrative 04/22/2014 10:23 AM RESEARCH PHYSIOLOGIST Ultrasound Abdomen Limited Indication: Abdominal pain, epigastric region. Technique: Gill scale and color images of the abdomen Findings: The visualized pancreas is within normal limits. Liver echotexture is increased compatible with fatty infiltration. There is no focal abnormality. Patency of the hepatic and portal vein is confirmed with the application of color Doppler. The right kidney is within normal limits measuring 10.8 x 4.5 x 5.0 cm. No stones or hydronephrosis appreciated. No gallstones or gallbladder wall thickening evident. There is no biliary ductal dilatation. The common bile duct measures 5 mm in diameter. Procedure Note Maxwell Reed MD - 04/22/2014 Ultrasound Abdomen Limited Indication: Abdominal pain, epigastric region. Technique: Gill scale and color images of the abdomen Findings: The visualized pancreas is within normal limits. Liver echotexture is increased compatible with fatty infiltration. There is no focal abnormality. Patency of the hepatic and portal vein is confirmed with the application of color Doppler. The right kidney is within normal limits measuring 10.8 x 4.5 x 5.0 cm. No stones or hydronephrosis appreciated. No gallstones or gallbladder wall thickening evident. There is no biliary ductal dilatation. The common bile duct measures 5 mm in diameter. IMPRESSION Hepatic steatosis. No acute findings. Gely Metzger MD US ORDERABLES * TROPONIN I (04/22/2014 3:12 AM RESEARCH PHYSIOLOGIST) Only the most recent of3 resultswithin the time period is included. Pathologist [facility] Troponin I <0.015 0.000 - 0.049 ng/mL 04/22/2014 3:58 AM RESEARCH PHYSIOLOGIST [facility] Blood BLOOD SPECIMEN / Unknown 04/22/2014 3:12 AM RESEARCH PHYSIOLOGIST 04/22/2014 3:34 AM RESEARCH PHYSIOLOGIST Narrative [facility] - 04/22/2014 3:58 AM RESEARCH PHYSIOLOGIST Note: Diagnosis of myocardial infarction requires symptoms of ischemia or EKG changes of ischemia and TNI >99th of normal (0.05 ng/mL). Troponin should be drawn on initial assessment and 3-6 hours later as clinically indicated. Any condition resulting in myocardial cell damage can increase cardiac troponin levels. In addition to myocardial infarction, these include but are not limited to CHF, arrhythmia, myocarditis, and non-cardiac related causes such as pulmonary embolism, renal failure and sepsis. Gely Metzger MD LAB - CHEMISTRY BEBA GAINES [facility] Organization Address City/State/ZIP Co de Phone Number [facility] [address] [place] [address] * (ABNORMAL) URINALYSIS ROUTINE W/REFLEX TO CULTURE (04/21/2014 10:25 PM RESEARCH PHYSIOLOGIST) Color UA Yellow Straw, Yellow, Dark Yellow 04/21/2014 10:39 PM [facility] Clarity UA Clear 04/21/2014 10:39 PM [facility] Specific [place] UA >1.030(H) 1.005 - 1.030 04/21/2014 10:39 PM [facility] pH UA 7.0 5.0 - 8.0 pH 04/21/2014 10:39 PM [facility] Protein UA Negative Negative 04/21/2014 10:39 PM [facility] Blood UA Negative Negative 04/21/2014 10:39 PM [facility] Leukocyte UA Negative Negative 04/21/2014 10:39 PM [facility] Nitrite UA Negative Negative 04/21/2014 10:39 PM [facility] Glucose UA Negative Negative 04/21/2014 10:39 PM [facility] Ketone UA Negative Negative 04/21/2014 10:39 PM [facility] Bilirubin UA Negative Negative 04/21/2014 10:39 PM [facility] Urobilinogen UA 0.2 0.1 - 1.0 EU/dL 04/21/2014 10:39 PM [facility] Reflex Status Culture not indicated 04/21/2014 10:39 PM [facility] Urine URINE SPECIMEN OBTAINED BY CLEAN CATCH PROCEDURE / Unknown 04/21/2014 10:25 PM RESEARCH PHYSIOLOGIST 04/21/2014 10:32 PM [facility] Gely Metzger MD LAB - URINALYSIS ORD ERABLES Performing Organization Address City/State/[facility] Co de Phone Number [facility] [address] [place] [address] * CT ABDOMEN AND PELVIS WITH IV CONTRAST (04/21/2014 9:31 PM RESEARCH PHYSIOLOGIST) Anatomical Region Laterality Modality Abdomen, Pelvis Computed Tomogra phy 04/21/2014 9:34 PM RESEARCH PHYSIOLOGIST Impressions 04/21/2014 9:36 PM RESEARCH PHYSIOLOGIST A subtle amount of edema or stranding is visible around the the pancreas. This type of finding can be seen in patients with pancreatitis. Close correlation with the clinical and laboratory features is needed to evaluate the CT findings. Otherwise no acute findings. Narrative 04/21/2014 9:[address] ABDOMEN WITH CONTRAST CT PELVIS WITH CONTRAST INDICATION: Upper abdominal pain and vomiting TECHNIQUE: The CT scan of the abdomen is carried out during and following administration of 80 mL Omnipaque 350 contrast IV. The images of the pelvis were performed with contrast. Sagittal and coronal reformatted images were performed with the CT scanner. FINDINGS: CT Abdomen: No free fluid can be seen in the upper abdomen. A subtle amount of edema or stranding can be seen around the head of the pancreas. No peripancreatic fluid collection can be seen. The liver, spleen, adrenal glands and gallbladder appear normal in size. The kidneys enhance bilaterally. There are no dilated bowel loops in the upper abdomen. CT Pelvis: No free fluid can be seen in the pelvis. Bladder is smooth in outline but is not filled with the IV contrast material on this limited single phase examination. There are no dilated bowel loops. The appendix is partially seen on the axial images and is normal in size. This report was transcribed with a computerized speech recognition system. In an effort to expedite patient care, it has not been adjusted for typographical, grammatical or syntax problems by a trained medical office receptionist assistant. For questions about the report, please contact the Radiology Department. Procedure Note Ty Shelton MD - 04/21/[address] CT [address] WITH CONTRAST CT PELVIS WITH CONTRAST INDICATION: Upper abdominal pain and vomiting TECHNIQUE: The CT scan of the abdomen is carried out during and following administration of 80 mL Omnipaque 350 contrast IV. The images of the pelvis were performed with contrast. Sagittal and coronal reformatted images were performed with the CT scanner. FINDINGS: CT Abdomen: No free fluid can be seen in the upper abdomen. A subtle amount of edema or stranding can be seen around the head of the pancreas. No peripancreatic fluid collection can be seen. The liver, spleen, adrenal glands and gallbladder appear normal in size. The kidneys enhance bilaterally. There are no dilated bowel loops in the upper abdomen. CT Pelvis: No free fluid can be seen in the pelvis. Bladder is smooth in outline but is not filled with the IV contrast material on this limited single phase examination. There are no dilated bowel loops. The appendix is partially seen on the axial images and is normal in size. This report was transcribed with a computerized speech recognition system. In an effort to expedite patient care, it has not been adjusted for typographical, grammatical or syntax problems by a trained medical office receptionist assistant. For questions about the report, please contact the Radiology Department. IMPRESSION A subtle amount of edema or stranding is visible around the the pancreas. This type of finding can be seen in patients with pancreatitis. Close correlation with the clinical and laboratory features is needed to evaluate the CT findings. Otherwise no acute findings. Gely Metzger MD CT ORDERABLES * EKG 12-LEAD (04/21/2014 7:14 PM RESEARCH PHYSIOLOGIST) Ventricular Rate 94 BPM [facility] Atrial Rate 94 BPM [facility] P-R Interval 142 ms [facility] QRS Duration ms 76 ms [facility] Q-T Interval ms 334 ms [facility] QTC Calculation (Bezet) 417 ms [facility] Calculated P [place] 36 degrees [facility] Calculated R [place] -15 degrees [facility] Calculated T [place] 27 degrees [facility] Interpretation EKG Normal sinus rhythm Possible Left atrial enlargement Left ventricular hypertrophy Abnormal ECG No previous ECGs available Confirmed by RIMA JARAMILLO, DELORES ([id number]) on 04/23/2014 1:21:52 AM [facility] 04/21/2014 7:14 PM RESEARCH PHYSIOLOGIST 04/23/2014 1:21 AM RESEARCH PHYSIOLOGIST Geyl Metzger MD ECG ORDERABLES [facility] Care Teams Lead Architect Relationship Specialty Start Date End Date Malia Esquivel MD [address] [place] [id number] PCP - General Internal Medicine 06/16/15 Keyona Castro, RN Packing House Laborer 04/22/14
--- OUTSIDE RECORDS SUMMARY | 2024-04-28 08:12 | XMS_ITS | Clinical Summary ---
Author Organization [facility] [employer] Address [address] [facility] [address] [place] [address] Care Team Providers Care Mosaic Worker Name Role Phone Keyona Castro RN Unavailable [phone] Malia Esquivel MD Primary Care Provider [phone] Source Comments [facility],non-owned Affiliates and Associated Physician Practices is amultiple site organization consisting of ambulatory clinics and hospital sitesin [place], [place], [place] and [place]. This disclosure is being madepursuant to the Care Everywhere program and may not contain all information available regarding this patient. Last updated 17.[facility] [employer] Allergies No known active allergies Medications * [...] Fields (Doctor), Liseth Bishop RN, Dory Sanchez, Sizer Machine Patient Profile: 60F pmh HTN, obesity here [...] 3 yrs Procedure Code(s): --- Professional --- 50928, Colonoscopy, flexible; with removal of tumor(s), polyp(s), or other lesion(s) by snare technique --- Technical --- 60731, Colonoscopy, flexible; with removal of tumor(s), polyp(s), [...] neoplasm of sigmoid colon CPT copyright 2015 [employer]. All rights reserved. The codes documented in this report are preliminary and upon field crops harvest machine operator review may be revised to meet current compliance requirements. Shashi Fields, 09/07/2015 11:12:25 AM This report has been signed electronically. Number of Addenda: 0 Note Initiated On: 09/07/2015 10:32 AM [facility] 09/07/2015 10:3 2 AM CDT Shashi Fields MD GI PROCEDURE ORDERAB LES [facility] * DEXA BONE DENSITY [...] 12:27 AM 04/23/2014 2:50 PM Care Teams Mosaic Worker Relationship Specialty Start Date End Date Malia Esquivel MD [address] [place] [phone] PCP - General Internal Medicine 06/16/15 Keyona Castro, RN Apprentice Machinist Outside 04/22/14
--- OUTSIDE RECORDS SUMMARY | 2024-04-28 08:12 | XMS_ITS | Clinical Summary ---
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
--- OUTSIDE RECORDS SUMMARY | 2024-04-28 08:12 | XMS_ITS | Clinical Summary ---
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
--- OUTSIDE RECORDS SUMMARY | 2024-04-28 08:12 | XMS_ITS | Referral Summary ---
Author Organization [facility] [employer] Address [address] [facility] [place] [address] Care Team Providers Care Sergeant Of Corrections Name Role Phone Keyona Castro RN Unavailable [phone] Malia Esquivel MD Primary Care Provider Source Comments [facility],non-owned Affiliates and Associated Physician Practices is amultiple site organization consisting of ambulatory clinics and hospital sitesin [place], [place], [place] and [place]. This disclosure is being madepursuant to the Care Everywhere program and may not contain all information available regarding this patient. Last updated 17.[facility] [employer] Allergies No known active allergies Medications * [...] Fields (Doctor), Liseth Bishop RN, Dory Sanchez, Collection Officer Patient Profile: 60F pmh HTN, obesity here [...] 3 yrs Procedure Code(s): --- Professional --- 04134, Colonoscopy, flexible; with removal of tumor(s), polyp(s), or other lesion(s) by snare technique --- Technical --- 04232, Colonoscopy, flexible; with removal of tumor(s), polyp(s), [...] neoplasm of sigmoid colon CPT copyright 2015 [employer]. All rights reserved. The codes documented in this report are preliminary and upon injection molding machine operator review may be revised to meet current compliance requirements. Shashi Fields, 09/07/2015 11:12:25 AM This report has been signed electronically. Number of Addenda: 0 Note Initiated On: 09/07/2015 10:32 AM [facility] 09/07/2015 10:3 2 AM CDT Shashi Fields MD GI PROCEDURE ORDERAB LES [facility] * DEXA BONE DENSITY [...] 12:27 AM 04/23/2014 2:50 PM Care Teams Sergeant Of Corrections Relationship Specialty Start Date End Date Malia Esquivel MD [address] [place], [place] [id number] PCP - General Internal Medicine 06/16/15 Keyona Castro, RN Sanding Machine Tender 04/22/14
--- OUTSIDE RECORDS SUMMARY | 2024-04-28 08:12 | XMS_ITS | Continuity of Care Document ---
Author Organization [facility] Address [address] [place] [address] Phone Care Team Providers Care Belt Dresser Name Role Phone Cecil Ibarra MD Unavailable Unavailable Advance Directives Directive Yes / No Effective Date File Name No Information Encounters Encounter Description Practice Location Reason(s) For Visit Diagnoses Date Provider Providers Copied on Encounter [facility], [address], [place], [place], [id number], [place] tel:[phone] [place] No Information Fred Jacob. [address], [address], [place], [place], [id number], [place]. tel:[phone] Family History Family Member Type Diagnosis Age At Onset No Information Payers Payer name Insurance type Covered libertarian ID Authoriza tion(s) No Information Social History [...]
== END 2024-04-28 08:08 | disposition home or self-care (01) ==
LOC: ANHIMG 08:09
PROVIDERS: PCP Internal Medicine; Visit Provider Internal Medicine
DX: M85.851 Other specified disorders of bone density and structure, right thigh (principal); Z78.0 Asymptomatic menopausal state; Z96.642 Presence of left artificial hip joint
CPT/HCPCS: 77080